=== PATIENT | female | born 1965 | race Caucasian/White ===

== ENCOUNTER 2021-01-24 12:52 | Outpatient (REF) | payer MEDICAID, SELFPAY ==
--- NOTE | ~2021-01-24 | XR_ITS ---
EXAMINATION: XR CHEST CLINICAL INFORMATION: Severe persistent asthma, uncomplicated COMPARISON: Chest radiographs 10/18/2019, 06/03/2015 TECHNIQUE: 2 views of the chest were obtained. FINDINGS: There is no hyperinflation, airspace consolidation, or ground-glass opacity. There is mild coarsening of the bronchiolar markings consistent with history of asthma/bronchitis. The costophrenic sulci are clear. The heart is normal in size and the hilar and mediastinal contours and bony structures are unremarkable. XR/XR chest 2V IMPRESSION: Mild coarsening bronchiolar markings consistent with history asthma/bronchitis. No airspace consolidation, ground-glass opacity, or effusion.
[2021-01-24 14:05] LABS: MANUAL DIFF FLAG NO
[2021-01-24 14:09] LABS: Basophils Percent Auto 0.6 % (0-2); Eosinophils Absolute Auto 0.2 X10*3/uL (0.0-0.4); Eosinophils Percent Auto 2.9 % (0-4); Hematocrit 40.4 % (37-47); Hemoglobin 13.5 g/dl (12.0-16.0); Imm Gran Abs Auto 0.02 X10*3/uL (0.00-0.03); Imm Gran Pct Auto 0.3 % (0.0-0.4); Lymphocytes Absolute Auto 2.4 X10*3/uL (1.2-4.9); Lymphocytes Percent Auto 33.2 % (20-40); Mean Corpuscular HGB Conc 33.4 g/dl (31.0-35.0); Mean Corpuscular Hemoglobin 28.7 pg (27.0-33.0); Mean Corpuscular Volume 85.8 fL (80-98); Mean Platelet Volume 11.1 fL (9.4-12.3); Monocytes Absolute Auto 0.5 X10*3/uL (0.1-1.2); Monocytes Percent Auto 7.2 % (2-11); Neutrophils Percent Auto 55.8 % (45-73); Platelet Count 274 X10*3/uL (160-400); Red Blood Count 4.71 X10*6/uL (4.20-5.50); Red Cell Distribution Width 12.5 % (11.0-16.0); White Blood Count 7.2 X10*3/uL (4.8-10.8)
== END 2021-01-24 12:53 | disposition home or self-care (01) ==
LOC: HO.LAB 12:52
PROVIDERS: PCP Family Medicine; Visit Provider Internal Medicine Pulmonary Disease
DX: J45.50 Severe persistent asthma, uncomplicated (principal); Z91.09 Other allergy status, other than to drugs and biological substances; Z79.899 Other long term (current) drug therapy
CPT/HCPCS: 36415; 71046; 82785; 85025; 86003; 99202

== ENCOUNTER 2021-04-05 09:05 | Outpatient (REF) | payer MEDICAID, SELFPAY ==
--- NOTE | ~2021-04-05 | CT_ITS ---
EXAMINATION: CT FACIAL BONES WITH CONTRAST CLINICAL INFORMATION: Localized swelling of mass or lump. COMPARISON: None TECHNIQUE: 3 mm thin and reformatted 1.5 mm thin sagittal and coronal images of facial bones were obtained following IV [address] examination was performed using dose optimization techniques as appropriate, variously including the following: *Automated exposure control *Adjustment of mA and/or kV according to patient size (this includes techniques or standardized protocols for targeted exams where dose is matched to indication/reason for exam; i.e. extremities or head) *Use of iterative reconstruction technique DLP: 497 mGy-cm FINDINGS: There is no acute maxillofacial fracture. The pterygoid plates are intact. The zygomatic arches are intact. The lamina papyracea are intact. The orbital rims are intact. The paranasal sinuses are well-aerated. No air-fluid levels are seen. There is mild deviation of the nasal septum to the left. The ostiomeatal complexes are clear. The lamina papyracea are intact. The ethmoid roofs are symmetric. The carotid canals are normally covered by bone. No maxillary periapical disease is seen. The mastoid air cells and visualized middle ear cavities are well-aerated. The orbits are normal. The TMJs are unremarkable. The imaged portions of the brain demonstrate no acute abnormality. CT/CT facial bones w con IMPRESSION: No acute intracranial process or discrete facial bone fracture.
[2021-04-05] MEDS: iohexoL 350 MG/ML 100 ML INFUS..BTL IV (09:56)
== END 2021-04-05 09:06 | disposition home or self-care (01) ==
LOC: HO.CT 09:05
PROVIDERS: PCP Family Medicine; Visit Provider Family Medicine
DX: R22.0 Localized swelling, mass and lump, head (principal)
CPT/HCPCS: 70487; Q9967

== ENCOUNTER 2021-04-18 18:11 | Emergency (ER) | payer MEDICAID, SELFPAY ==
[2021-04-18 18:51] VITALS: BP 140/76; PULSE 83; RESP 18; TEMP 36.5; O2SAT 99; BMI 39.9
--- NOTE | 2021-04-18 20:37 | ED_ITS ---
HPI - General Adult General Chief complaint: Extremity Problem Stated complaint: shoulder pain Time Seen by Provider: 04/18/21 20:28 Source: patient Mode of arrival: ambulatory Limitations: no limitations History of Present Illness HPI narrative: 55-year-old female who presents emergency department for evaluation of left-sided neck pain with pain radiating down her left arm. Patient states she has had left sided neck pain for approximately 3 weeks. She denies any injury. She points to her trapezius muscle when asked to localize the pain. She states that the pain is a constant, stabbing like pain. She has seen her provider and has been treated the cyclobenzaprine with only minimal relief for pain. She states that over the last 3-4 days the pain is not radiating down her left arm. She states she has a burning sensation in her left arm with occasional weakness. She states that the pain in her neck and arm are 10/10. She denied fever, chills, nausea, vomiting, chest pain, shortness of breath. Related Data Previous Rx's Medication Instructions Recorded cyclobenzaprine 10 mg PO TID PRN #20 tab 04/18/21 morphine 15 mg PO Q4-6H PRN #10 tab 04/18/21 prednisone 60 mg PO DAILY 7 Days #21 tab 04/18/21 Allergies Allergy/AdvReac Type Severity Reaction Status Date / Time nitrofurantoin AdvReac Unknown nausea and Verified 04/18/21 19:49 vomiting From COMPAZINE Allergy Unknown ANAPHYLAXIS Uncoded 12/25/20 12:33 Review of Systems Review of Systems: Yes all other systems are reviewed and are negative [facility] Past Medical History [facility] Narrative: Past medical history: Prediabetes, asthma, depression. Past surgical history: . Social history: She denies tobacco, alcohol and drug use. Social History Social History Advance Directives: No Advance Directives Information Provided: No Patient : No Physical Exam Vital Signs: Vital Signs: Last Vital Signs Temp 97.7 F 04/18/21 18:51 Pulse 83 04/18/21 18:51 Resp 18 04/18/21 18:51 BP 140/76 H 04/18/21 18:51 Pulse Ox 99 04/18/21 18:51 Body Mass Index 39.9 Const: General: cooperative Nutritional Appearance: overweight Orientation/consciousness: oriented to person and oriented to place Limitations: no limitations HENMT: Head: Yes normal to inspection, Yes normocephalic and Yes atraumatic Ears: external ears normal General nose exam: Normal external nose present Face and sinus: Yes normal facial exam Mouth: Normal oral and palatal mucosa present Throat: Yes posterior oropharynx normal Eyes: Periorbital: periorbital findings normal Eyelids: Yes eyelids normal Conjunctivae: conjunctivae normal Sclerae: sclerae normal Corneas: corneas normal Pupils: Equal, round and reactive pupils present Direct Ophthalmoscopy: normal light reflex Neck: Other: Moderate tenderness to the left trapezius muscle, left trapezius muscle spasm, no C-spine tenderness Chest: Chest palpation & inspection: normal inspection of the chest and normal palpation of entire chest wall Resp: Effort & Inspection: normal respiratory effort and able to speak in complete sentences Auscultation: clear to auscultation bilaterally Cardio: Rate: regular rate Rhythm: regular rhythm Heart sounds: S1 normal heart sound present, S2 normal heart sound present and no murmurs GI: Inspection: Yes normal to inspection Palpation (GI): Soft to palpation, nontender, no guarding, not rigid and No hepatosplenomegaly present : General: Yes no CVA tenderness Back/Spine/Pelvis: Back: no CVA tenderness Cervical Spine: normal cervical lordosis Thoracic/Lumbar Spine: thoracic and lumbar spine normal to inspection Neuro: General: oriented to person and oriented to place Cranial nerves: Yes CN's II-XII intact bilaterally and Yes Equal, round and reactive pupils present Cognition (Neuro): normal cognition Motor exam (neuro): 5/5 motor strength present throughout Extrem: General: Yes normal to inspection and Yes full ROM Psych: Appearance: well kempt Mental Status: mental status grossly normal Speech and movement: Normal speech and movement present Affect: normal affect Attitude: cooperative Thought process: Normal thought process present Thought content: Normal thought content present Course Course Course Narrative: 55-year-old female who presents emergency department for evaluation of 3 weeks of left-sided trapezius muscle and 3-4 days of pain radiating down her left arm. Physical examination did reveal tenderness palpation of left trapezius muscle with normal upper extremity strength. The patient's presentation is consistent with cervical radiculopathy, I suspect that is probably secondary to inflammation caused by her trapezius muscle strain. Cervical this disease is also possible cause. I did discuss this with the patient. She was advised to stop taking NSAIDs. Patient was started on prednisone 60 mg once a day for 1 week. She was advised to continue taking Tylenol and I did give her prescription for cyclobenzaprine. For pain not relieved by these medications, she was given morphine 15 mg, 1 pill every 4-6 hours as needed for pain. The patient was given verbal and printed instructions prior to discharge. The patient was advised to follow-up with their PCP in 2 days and to return to the emergency department if their symptoms get worse or if they develop any new symptoms that are concerning to them Discharge Plan Discharge Clinical Impression: Acute neck pain, Cervical radiculopathy, Strain of left trapezius muscle Patient Disposition: Home, Self-Care Instructions: Cervical Radiculopathy (ED) Additional Instructions: You have significant tenderness and spasm of the left neck trapezius muscle. You probably have significant inflammation of this muscle and this may be causing inflammation of the nerves coming out of your neck causing her pain in the left arm. It is also possible that she might have a bulging disc that is causing the pain in her left arm. Stop taking NSAIDs (Motrin, ibuprofen, Advil, Aleve, naproxen). Instead I am starting you on a strong steroid anti-inflammatory medication call prednisone. Take prednisone 20 mg pills, 1 pill 3 times a day for 1 week. Take Flexeril (cyclobenzaprine) 10 mg, 1 pill 3 times a day as needed for pain and spasm. This medication will make you sleepy. Do not drive or work while taking this medication. Take Tylenol (acetaminophen) 500 mg pills, 2 pills every 4 to 6 hours as needed for pain. For pain not relieved by the above medications, take morphine 15 mg pills, 1 pill every 4-6 hours as needed for pain. This is a narcotic medication and can be addicting. If your concerned about addiction do not get this medication filled or you can ask the pharmacist for less pills than prescribed. This medication will make you sleepy, do not drive or work while taking this medication. This medication will cause constipation. Follow-up with your doctor in 2 days. Please return to the emergency department if your symptoms get worse or if you develop any symptoms that are concerning to you. Prescriptions: New cyclobenzaprine 10 mg tablet 10 mg PO TID PRN (Reason: muscle pain or spasm) Qty: 20 RF: 0 prednisone 20 mg tablet 60 mg PO DAILY 7 Days Qty: 21 RF: 0 morphine 15 mg tablet 15 mg PO Q4-6H PRN (Reason: pain) Qty: 10 RF: 0
[2021-04-18] MEDS: predniSONE 20 MG TABLET 60 MG PO (21:27)
== END 2021-04-18 21:38 | disposition home or self-care (01) ==
PROVIDERS: Emergency Provider Emergency Medicine Emergency Medical Services; PCP Family Medicine
DX: S46.812A Strain of other muscles, fascia and tendons at shoulder and upper arm level, left arm, initial encounter (principal); M54.12 Radiculopathy, cervical region; X58.XXXA Exposure to other specified factors, initial encounter; Y93.9 Activity, unspecified; Y92.9 Unspecified place or not applicable; Y99.9 Unspecified external cause status
CPT/HCPCS: 99283; 99284

== ENCOUNTER 2021-08-14 08:36 | Outpatient (REF) | payer MEDICAID, SELFPAY ==
--- NOTE | 2021-08-14 09:59 | PFT_ITS ---
Forced vital capacity and FEV1 are both slightly decreased, FEV1/FVC ratio is normal. [id number] and MVV also slightly decreased. Post bronchodilator therapy, there is slight improvement in [id number]. Total lung capacity and residual volume normal. Diffusion capacity slightly decreased. CONCLUSION: Possible mild obstructive airway disorder mainly involving smaller airways and there is a small, but significant improvement after bronchodilator therapy. These findings may be reflective of mild bronchial asthma. Clinical correlation recommended. MD ANNE Christiansen/MODL / [id number]
== END 2021-08-14 08:37 | disposition home or self-care (01) ==
LOC: HO.RESP 08:36
PROVIDERS: PCP Family Medicine; Visit Provider Internal Medicine Pulmonary Disease
DX: J45.50 Severe persistent asthma, uncomplicated (principal)
CPT/HCPCS: 94060; 94727; 94729

== ENCOUNTER → 2021-08-15 14:17 | Outpatient (BNVA) | payer MEDICAID, SELFPAY | PROVIDERS: PCP Family Medicine; Visit Provider Internal Medicine Pulmonary Disease | DX: J45.50 Severe persistent asthma, uncomplicated (principal); R06.00 Dyspnea, unspecified; Z91.09 Other allergy status, other than to drugs and biological substances | CPT/HCPCS: 99212 ==

== ENCOUNTER 2021-09-12 09:06 | Outpatient (REF) | payer MEDICAID, SELFPAY ==
--- NOTE | ~2021-09-12 | US_ITS ---
EXAMINATION: US ABDOMEN COMPLETE CLINICAL INFORMATION: Right upper quadrant pain, gallstone. COMPARISON: CT abdomen and pelvis noncontrast 10/18/2019, ultrasound abdomen 06/10/2019 TECHNIQUE: Real-time imaging of the abdominal viscera. FINDINGS: PANCREAS: The pancreas is normal in size and echogenicity. There is no pancreatic ductal distention and no retroperitoneal effusion. ABDOMINAL AORTA: The proximal, mid, and distal segments are normal in caliber. INFERIOR VENA CAVA: Visualized portions are normal. LIVER: The liver is within normal size and appears smooth in contour. There is no focal parenchymal lesion. No intrahepatic biliary ductal dilatation. Hepatic parenchymal echogenicity is borderline increased which may suggest mild hepatic steatosis. GALLBLADDER: Gallbladder is similar to prior studies. There is strong specular echo with shadowing from the gallbladder fossa. It is uncertain on prior exams whether the finding is related to porcelain gallbladder with wall calcification or a large gallstone. COMMON BILE DUCT: Within limits of normal caliber 0.6 cm. No visible ductal calculus. RIGHT KIDNEY: Normal. No hydronephrosis. No renal calculi or focal parenchymal lesions. The kidney measures 12.7 cm in maximum dimension. LEFT KIDNEY: Congenitally absent. SPLEEN: Normal. The spleen measures 11.3 cm in maximum dimension. FREE FLUID: None. US/US abdomen complete IMPRESSION: 1. Specular echo from gallbladder fossa with strong shadowing. It is uncertain on prior exams with the finding is related to porcelain gallbladder with wall calcification or a large gallstone. No intrahepatic or extrahepatic ductal dilatation. 2. Probable mild hepatic steatosis. No focal hepatic parenchymal lesion. 3. Pancreas unremarkable. No right hydronephrosis.
== END 2021-09-12 09:07 | disposition home or self-care (01) ==
LOC: HO.US 09:06
PROVIDERS: PCP Family Medicine; Visit Provider Family Medicine
DX: R10.11 Right upper quadrant pain (principal); K80.20 Calculus of gallbladder without cholecystitis without obstruction; R77.2 Abnormality of alphafetoprotein
CPT/HCPCS: 76700

== ENCOUNTER 2021-09-16 11:18 | Outpatient (REF) | payer MEDICAID, SELFPAY ==
--- NOTE | ~2021-09-16 | MM_ITS ---
EXAMINATION: MM SCREENING DIGITAL BREAST TOMOSYNTHESIS, BILATERAL CLINICAL INFORMATION: Screening. Asymptomatic. The lifetime risk of breast cancer based on the Tyrer-Cuzick Model is 6%. COMPARISON: Mammography: 07/01/2017, 05/19/2016 TECHNIQUE: Digital breast tomosynthesis is performed in both the craniocaudal and mediolateral oblique views along with computer-aided detection (CAD). Synthesized 2D images are generated from the tomosynthesis. FINDINGS: There are scattered areas of fibroglandular density (ACR BI-RADS breast composition Category b). There are no significant masses, abnormal calcifications, or other abnormalities. MM/MM tomosynthesis screening BI IMPRESSION: No mammographic evidence of malignancy. ASSESSMENT: BI-RADS 1: Negative RECOMMENDATION: Routine annual mammography screening. This patient's information was entered into a reminder system with a target due date for their next mammogram.
== END 2021-09-16 11:19 | disposition home or self-care (01) ==
LOC: HO.MAMMO 11:18
PROVIDERS: Visit Provider Family Medicine
DX: Z12.31 Encounter for screening mammogram for malignant neoplasm of breast (principal)
CPT/HCPCS: 77063; 77067

== ENCOUNTER → 2021-09-25 14:16 | Outpatient (REF) | payer MEDICAID, SELFPAY ==
--- NOTE | 2021-09-25 14:26 | CA_ITS ---
Transthoracic Echocardiogram Patient (Last, First, Middle): Jacqui Russo, Gender: Female Date of : 1965 Age: 55 Procedure Date: 09/25/2021 Procedure Type: Transthoracic [place] [facility] [place]: 160.02 cm Weight: 104.33 kg BSA: 2.05 m2 Heart Rate: bpm BP: 134 / 80 mmHg [employer] Technician: Referring MD: Kolton Catherine MD Mental Health Technician: Lm Morales MD Symptoms: R06.00 - Dyspnea, unspecified Study Quality: Good ECG Rhythm: Sinus Conclusions: - 1. Normal LV systolic function with grade 1 diastolic dysfunction 2. Normal cardiac valvular Doppler 3. Normal RV systolic pressure 4. No pericardial effusion Findings Left Ventricle Normal left ventricular size, thickness, and systolic function. The visually estimated ejection fraction is between 60-65%. Spectral Doppler is indicative of an impaired relaxation filling pattern. Normal left ventricular filling pressures. E/E prime ratio is <8, consistent with normal filling pressures. Evidence suggests grade I (mild) diastolic dysfunction. Right Ventricle Normal right ventricular cavity size and systolic function. Atria Both atria are normal in size. There is no evidence of interatrial shunt. Aortic Valve Normal aortic valve structure and function. There is no aortic valve stenosis. There is no aortic valve regurgitation. Mitral Valve Normal mitral valve structure and function. There is trace mitral valve regurgitation. There is no mitral valve stenosis. Pulmonic Valve The pulmonic valve was not well visualized. Tricuspid Valve Likely normal tricuspid valve structure and function. There is trace tricuspid valve regurgitation. The right ventricular systolic pressure is 20 mmHg. There is no evidence of pulmonary hypertension. Great Vessels All visible segments of the aorta are normal in size. The pulmonary artery was not well visualized. Venous The inferior vena cava is normal in size and collapses greater than 50% with inspiration. Pericardium/Pleural There is no evidence of pericardial effusion. Prior Study Comparison No prior study available for comparison. Measurements 2D Linear Measurements RVIDd: 3.07 RVIDd Index: 1.50 IVSd: 0.81 0.6-0.9/0.6-1.0 cm LVIDd: 4.71 3.9-5.3/4.2-5.9 cm LVIDd Index: 2.30 2.4-3.2/2.2-3.1 cm/m2 LVIDs: 2.65 2.0-3.6 cm LVPWd: 0.90 0.7-1.1 cm Ao Root: 3.10 2.1-3.5 cm LA Diam: 3.40 2.7-3.8/3.0-4.0 cm LAIDs Index: 1.66 1.5-2.3 cm/m2 LV Mass: 166.66 67-162/88-224 g LV Mass Index: 81.30 43-95/49-115 g/m2 LVOT Diam: 2.00 3.0+(-)1.3 cm 2D Systolic Function EF 4C: 62.20 >55% EF 2C: 68.70 >55% EF BiP: 64.40 >55% Mitral Valve MV Pk E: 0.63 MV PK A: 0.96 MV Decel Time: 212.00 E/A: 0.70 E'Lateral: 8.16 E'Medial: 8.05 E/E' Med: 7.80 E/E' Lat: 7.70 PHT: 62.00 MVA PHT: 3.55 Decel Manati: 2.95 Aortic Valve AoV Pk Walter: 1.49 AoV Mn Walter: 1.01 AoV VTI: 0.30 AoV Pk Grad: 9.00 Aov Mn Grad: 5.00 RADHA Cont.VTI: 2.51 LVOT LVOT Pk Walter: 1.19 LVOT Mn Walter: 0.78 LVOT VTI: 0.24 LVOT Pk Grad: 6.00 LVOT Mn Grad: 3.00 LVOT Diam: 2.00 LVOT Area: 3.14 Diastolic Function MV Pk E: 0.63 MV Pk A: 0.96 E/A: 0.70 E'Medial: 8.05 E/E' Med: 7.80 E' Laterial: 8.16 E/E' Lat: 7.70 Right Ventricle TAPSE (mm): 17.00 TVS' Walter: 10.00 Tricuspid Valve TR Pk Walter: 2.08 TR Pk Grad: 17.00 RA Press: 3.00 RVSP: 20.00 Great Vessels Aorta Ao Root-2D: 3.10 2.0-3.7 cm Ao Asc: 3.50 2.1-3.4 cm Pulmonary Valve PV Pk Walter: 1.05 Peak PV Grad: 4.00 Updated in Other Vendor System with Status of Final Lm Morales MD electronically signed on 09/25/2021 4:06:02 PM with status of Final
== END ==
LOC: HO.CARD 14:16
PROVIDERS: Visit Provider Internal Medicine Pulmonary Disease
DX: R06.00 Dyspnea, unspecified (principal)
CPT/HCPCS: 93306

== ENCOUNTER → 2021-10-01 13:32 | Outpatient (BNVA) | payer MEDICAID, SELFPAY | PROVIDERS: PCP Family Medicine; Visit Provider Internal Medicine Pulmonary Disease | DX: J45.50 Severe persistent asthma, uncomplicated (principal); R06.00 Dyspnea, unspecified | CPT/HCPCS: 99212 ==

== ENCOUNTER 2021-12-09 11:15 | Outpatient (REF) | payer MEDICAID, SELFPAY ==
[2021-12-09 13:25] LABS: Blood Urea Nitrogen 18 mg/dL (9-16); Estimated Glomerular Filt Rate > 60
== END 2021-12-09 11:16 | disposition home or self-care (01) ==
LOC: HO.LAB 11:15
PROVIDERS: PCP Family Medicine; Referring Provider Family Medicine; Visit Provider Surgery
DX: R10.9 Unspecified abdominal pain (principal)
CPT/HCPCS: 36415; 82565; 84520; 99212

== ENCOUNTER 2021-12-12 12:52 | Outpatient (REF) | payer MEDICAID, SELFPAY ==
--- NOTE | ~2021-12-12 | XR_ITS ---
EXAMINATION: XR KNEE, LEFT CLINICAL INFORMATION: Pain COMPARISON: None TECHNIQUE: Four views of the left knee. FINDINGS: No fracture or subluxation. Mild narrowing at the patellofemoral compartment. Remaining joint spaces are maintained. No joint effusion. The soft tissues are unremarkable. XR/XR knee LT 3V IMPRESSION: Mild degenerative change of the patellofemoral compartment.
--- NOTE | ~2021-12-12 | XR_ITS ---
EXAMINATION: XR FOOT, LEFT CLINICAL INFORMATION: Pain in left foot COMPARISON: None TECHNIQUE: AP, lateral, and oblique views of the left foot. FINDINGS: No fracture or dislocation. Alignment is anatomic. Joint spaces are maintained. Mild hypertrophic spurring at the plantar aponeurosis and Achilles insertion to the calcaneus. No joint effusion. Soft tissues appear unremarkable. Accessory navicular. XR/XR foot LT min 3V IMPRESSION: Small heel spurs.
== END 2021-12-12 12:53 | disposition home or self-care (01) ==
LOC: HO.XRAY 12:52
PROVIDERS: Absent Provider Family Medicine; PCP Family Medicine; Visit Provider Emergency Medicine
DX: M25.562 Pain in left knee (principal); M79.672 Pain in left foot
CPT/HCPCS: 73562; 73630

== ENCOUNTER 2022-01-15 11:42 | Outpatient (REF) | payer MEDICAID, SELFPAY ==
--- NOTE | ~2022-01-15 | CT_ITS ---
EXAMINATION: CT ABDOMEN AND PELVIS WITH CONTRAST CLINICAL INFORMATION: Abdominal pain COMPARISON: CT abdomen pelvis 10/18/2019 TECHNIQUE: Multidetector volumetric images were obtained from the superior aspect of the liver through the pubic symphysis following administration 85 mL of Omnipaque 350 intravenous contrast. Sagittal and coronal reformatted images were obtained on the technologist's workstation. Oral contrast: No This CT examination was performed using dose optimization techniques as appropriate, variously including the following: *Automated exposure control *Adjustment of mA and/or kV according to patient size (this includes techniques or standardized protocols for targeted exams where dose is matched to indication/reason for exam; i.e. extremities or head) *Use of iterative reconstruction technique DLP: 625 mGy-cm FINDINGS: LUNG BASES: Unremarkable. ABDOMINAL AND PELVIC WALL: Unremarkable. LIVER AND BILIARY TREE: Hypoattenuating hepatic parenchyma suggesting hepatic steatosis. 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 PANCREAS: Unremarkable. SPLEEN: Unremarkable. ADRENAL GLANDS: Unremarkable. KIDNEYS AND URETERS: Right kidney is remarkable for a 2 mm nonobstructing right upper pole renal stone. Left kidney is severely atrophic measuring 1.6 cm. The right kidney measures 12.4 cm. GASTROINTESTINAL TRACT: Small hiatal hernia. VASCULAR: Unremarkable. LYMPH NODES/PERITONEUM: No lymphadenopathy. FREE FLUID: None. BLADDER: Unremarkable. PELVIC VISCERA: Unremarkable. OSSEOUS STRUCTURES: Unremarkable. CT/CT abdomen pelvis w con IMPRESSION: No acute findings to plain symptoms of abdominal pain. A 2 mm nonobstructing right upper pole renal stone. Left kidney is severely atrophic measuring 1.6 cm. 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 Consider surgical consultation. Hypoattenuating hepatic parenchyma suggesting hepatic steatosis.
[2022-01-15 12:13] LABS: Blood Urea Nitrogen 13 mg/dL (9-16); Estimated Glomerular Filt Rate > 60
[2022-01-15] MEDS: Barium Sulfate Oral (Mocha) 450 ML ORAL.SUSP 900 ML PO (14:43)
[2022-01-15] MEDS: iohexoL 350 MG/ML 100 ML INFUS..BTL IV (14:44)
== END 2022-01-15 11:43 | disposition home or self-care (01) ==
LOC: HO.CT 11:42
PROVIDERS: PCP Family Medicine; Visit Provider Surgery
DX: R10.9 Unspecified abdominal pain (principal)
CPT/HCPCS: 36415; 74177; 82565; 84520; Q9967

== ENCOUNTER → 2022-01-29 13:21 | Outpatient (BNVA) | payer MEDICAID, SELFPAY | PROVIDERS: PCP Family Medicine; Visit Provider Internal Medicine Pulmonary Disease | DX: J45.909 Unspecified asthma, uncomplicated (principal); G47.33 Obstructive sleep apnea (adult) (pediatric); R06.00 Dyspnea, unspecified | CPT/HCPCS: 99212 ==

== ENCOUNTER → 2022-02-03 12:27 | Outpatient (BNVA) | payer MEDICAID, SELFPAY | PROVIDERS: PCP Family Medicine; Referring Provider Family Medicine; Visit Provider Surgery | DX: K82.8 Other specified diseases of gallbladder (principal) | CPT/HCPCS: 99212 ==

== ENCOUNTER → 2022-03-06 13:51 | Outpatient (REF) | payer MEDICAID, SELFPAY | LOC: HO.SL 13:51 | PROVIDERS: PCP Family Medicine; Visit Provider Internal Medicine Pulmonary Disease | DX: G47.33 Obstructive sleep apnea (adult) (pediatric) (principal) | CPT/HCPCS: 95806 ==

== ENCOUNTER → 2022-05-02 12:37 | Outpatient (BNVA) | payer MEDICAID, SELFPAY | PROVIDERS: PCP Family Medicine; Visit Provider Internal Medicine Pulmonary Disease | DX: J45.909 Unspecified asthma, uncomplicated (principal); G47.33 Obstructive sleep apnea (adult) (pediatric); J32.9 Chronic sinusitis, unspecified | CPT/HCPCS: 99212 ==

== ENCOUNTER 2022-08-08 14:02 | Outpatient (REF) | payer MEDICAID, SELFPAY ==
--- NOTE | ~2022-08-08 | US_ITS ---
EXAMINATION: US SOFT TISSUE NECK CLINICAL INFORMATION: Mass/lump left side of neck. COMPARISON: None TECHNIQUE: Ultrasound of the left neck inferior to ear. FINDINGS: There is a 2.1 x 1.3 x 1.3 cm lymph node inferior to the ear corresponding to palpable abnormality. This demonstrates mild cortical thickening, and normal hilar flow. US/US soft tiss head and/or neck IMPRESSION: Slightly enlarged left cervical lymph node inferior to the ear. Management should be determined on a clinical basis.
== END 2022-08-08 14:03 | disposition home or self-care (01) ==
LOC: HO.US 14:02
PROVIDERS: PCP Family Medicine; Visit Provider Internal Medicine
DX: R22.1 Localized swelling, mass and lump, neck (principal)
CPT/HCPCS: 76536

== ENCOUNTER 2023-03-19 16:18 | Outpatient (REF) | payer MEDICAID, SELFPAY ==
--- NOTE | ~2023-03-19 | XR_ITS ---
EXAMINATION: XR FOOT, LEFT CLINICAL INFORMATION: Pain. COMPARISON: Regressed dated 12/12/2021. TECHNIQUE: AP, lateral, and oblique views of the left foot. FINDINGS: Bony alignment and mineralization are normal. No fracture, dislocation or left ankle joint effusion is seen. Boehler's angle is normal. There are very small posterior and plantar calcaneal spurs. An accessory navicular bone is noted. There is no unusual degenerative change. No focal soft tissue swelling, gas or foreign body is seen. XR/XR foot LT min 3V IMPRESSION: 1. No fracture, dislocation or left ankle joint effusion is seen. 2. There are very small calcaneal spurs.
--- NOTE | ~2023-03-19 | US_ITS ---
EXAMINATION: US VENOUS ULTRASOUND WITH DOPPLER LOWER EXTREMITY, LEFT CLINICAL INFORMATION: Pain and swelling. COMPARISON: None available. TECHNIQUE: Ultrasound of the deep veins is performed from the hip to the calf with compression sonography and color and pulse Doppler assessment. Spectral analysis with color-flow imaging is performed. FINDINGS: There is normal venous compression and respiratory variation and augmented flow. The visualized common femoral vein, superficial femoral vein, profunda femoral vein, popliteal vein, and the trifurcation region shows no evidence of deep venous thrombosis. There is no significant popliteal fossa cyst. If the patient's symptoms persist, followup ultrasound in 5 days 7 days might be of value to exclude proximal propagation from a non-visualized calf vein. US/US venous duplex LE IMPRESSION: No DVT demonstrated in the left lower extremity.
--- NOTE | ~2023-03-19 | XR_ITS ---
EXAMINATION: XR KNEE, LEFT CLINICAL INFORMATION: Pain and swelling. COMPARISON: None available. TECHNIQUE: AP, lateral, tunnel, and sunrise views of the left knee. FINDINGS: Bones and soft tissues are normal. No fracture or joint effusion. Alignment is anatomic. Joint spaces are well maintained. No abnormal soft tissue calcification. XR/XR knee LT 4V IMPRESSION: Normal left knee.
== END 2023-03-19 16:19 | disposition home or self-care (01) ==
LOC: HO.US 16:18
PROVIDERS: Absent Provider Family Medicine; PCP Family Medicine; Visit Provider Emergency Medicine
DX: M79.662 Pain in left lower leg (principal); M79.672 Pain in left foot; M79.89 Other specified soft tissue disorders
CPT/HCPCS: 73564; 73630; 93971

== ENCOUNTER 2023-11-26 13:39 | Outpatient (AMB) | payer MEDICAID, SELFPAY ==
[2023-11-26 13:49] VITALS: BP 120/70; PULSE 86; O2SAT 98
--- NOTE | 2023-11-26 13:49 | MHC.OFFVIS ---
Intake Vital Signs 11/26/23 13:49 Weight 243 lb 9.773 oz BP 120/70 Blood Pressure Location Rt brachial Position Sitting Pulse 86 Pulse Source Pulse Oximeter Pulse Oximetry (%) 98 Oxygen Delivery Method Room Air Intake Visit Reasons: dyspnea Allergies nitrofurantoin Adverse Reaction (Unknown, Verified 11/26/23 13:53) nausea and vomiting From COMPAZINE Allergy (Unknown, Uncoded 11/26/23 13:53) ANAPHYLAXIS Medication List - Last Reconciled 11/26/23 by Shirley Campbell LPN albuterol sulfate 90 mcg/actuation (ProAir HFA) 2 puffs PO Q4-6H PRN cetirizine 10 mg PO DAILY fluticasone propionate 50 mcg/actuation 1 spray intranasal DAILY furosemide 60 mg (1.5 x 40 mg) PO DAILY montelukast 10 mg PO DAILY HPI dyspnea HPI Details 58-year-old lady, nonsmoker, followed for underlying asthma and environmental allergies.? Patient is using Advair 500, Singulair, albuterol MDI/nebs now with good baseline control of her symptoms.?She also has underlying diastolic dysfunction for which she continues on Lasix 60 mg daily.? She has had her sleep study that showed no evidence of underlying sleep apnea. Today she does complain of an acute exacerbation symptomatic with wheezing and some dyspnea on exertion. [facility] Medical History Asthma Left flank pain Morbid obesity Porcelain gallbladder Surgical History H/O section History of tubal ligation Family History Mother Ovarian cancer Maternal Grandfather Throat cancer Social History Alcohol intake: never Patient Tobacco Use Status: Never used Tobacco Review of Systems Const Denies daytime sleepiness, Denies excessive sweating, Denies fatigue, Denies fever(s), Denies lethargy, Denies malaise, Denies night sweats, Denies snoring and Denies weight loss Eyes Denies blurry vision and Denies itchy eyes ENT Denies nasal congestion, Denies post nasal drip, Denies sinus pain, Denies sinus pressure and Denies other ( Thrush) Card Denies chest pain, Denies pedal edema, Denies dyspnea, Reports dyspnea on exertion, Denies orthopnea and Denies paroxysmal nocturnal dyspnea Resp Denies cough, Denies hemoptysis, Denies excessive phlegm production, Denies dyspnea, Reports dyspnea on exertion, Denies snoring and Reports wheezing GI Denies abdominal pain and Denies heartburn Musc Denies myalgias, Denies arthralgias and Denies joint swelling Skin/Breast Denies rash Neuro Denies memory loss and Denies seizure-like activity Psych Denies abnormal sleep pattern, Denies anxiety and Denies memory loss Endo Denies excessive sweating, Denies fatigue and Denies heat intolerance Kian/Lymph Denies easy bruising Aller/Immun Denies itchy eyes, Denies seasonal rhinorrhea and Reports wheezing Physical Exam Vital Signs: Last Vital Signs Pulse 86 11/26/23 13:49 BP 120/70 11/26/23 13:49 Pulse Ox 98 11/26/23 13:49 Oxygen Delivery Method Room Air 11/26/23 13:49 Const General: no acute distress and alert Nutritional Appearance: obese Orientation/consciousness: Other orientation findings ( oriented) HEENT Head: Yes atraumatic Eyes General: appearance normal, both eyes and all related structures Sclerae: sclerae normal EOM: EOMs intact bilaterally Neck Neck: Yes supple Lymphatic: no lymphadenopathy noted Resp Effort & Inspection: normal respiratory effort and no use of accessory muscles Auscultation: wheezes expiratory wheezes Cardio Rate: regular rate Rhythm: regular rhythm Heart sounds: no gallops, no murmurs and no rubs Skin General skin exam: other ( warm) Extrem General: No clubbing, No cyanosis and No edema Assessment & Plan Assessment & Plan (1) Asthma: Code(s): J45.909 - Unspecified asthma, uncomplicated Plan: Baseline controlled on Advair and albuterol MDI. Now with an acute exacerbation. Will treat with a prednisone course. (2) Environmental allergies: Code(s): Z91.09 - Other allergy status, other than to drugs and biological substances Plan: Controlled on Singulair and Zyrtec. Continue current regimen. (3) NE (obstructive sleep apnea): Code(s): G47.33 - Obstructive sleep apnea (adult) (pediatric) Plan: Sleep study results reviewed. No underlying obstructive sleep apnea noted. Medications: New prednisone 40 mg (2 x 20 mg) PO DAILY 14 tabs 0RF Coding Level of Care Code Est Pt Level 4 (89312) Diagnoses Asthma J45.909 Environmental allergies Z91.09 NE (obstructive sleep apnea) G47.33
== END 2023-11-26 14:02 | disposition home or self-care (01) ==
PROVIDERS: PCP Family Medicine; Visit Provider Internal Medicine Pulmonary Disease
DX: J45.909 Unspecified asthma, uncomplicated (principal); Z91.09 Other allergy status, other than to drugs and biological substances; G47.33 Obstructive sleep apnea (adult) (pediatric)
CPT/HCPCS: 99214

== ENCOUNTER → 2023-11-26 13:39 | Outpatient (BNVA) | payer MEDICAID, SELFPAY | PROVIDERS: PCP Family Medicine; Visit Provider Internal Medicine Pulmonary Disease | DX: J45.909 Unspecified asthma, uncomplicated (principal); G47.33 Obstructive sleep apnea (adult) (pediatric); Z91.09 Other allergy status, other than to drugs and biological substances | CPT/HCPCS: 99212 ==

== ENCOUNTER 2023-12-04 11:58 | Outpatient (AMB) | payer MEDICAID, SELFPAY ==
--- NOTE | 2023-12-04 12:01 | MHC.OFFVIS ---
Intake Vital Signs 12/04/23 12:02 Height 5 ft 3 in Weight 240 lb 4.862 oz BMI 42.6 BP 146/76 H Blood Pressure Location Lt brachial Position Sitting Pulse 87 Intake Visit Reasons: Hx of hep C/ mildly elevated AFP Intake Note: Jacqui presents in the office as a new patient for Hx of Hep C and midly elevated AFP. CC: She states that she deals with constipation, pains in stomach and acid reflux. Narcotics Investigator Required: Yes Narcotics Investigator Name: [id number] Allergies nitrofurantoin Adverse Reaction (Unknown, Verified 12/04/23 12:02) nausea and vomiting From COMPAZINE Allergy (Unknown, Uncoded 12/04/23 12:02) ANAPHYLAXIS HPI HPI Comments History of Present Illness Details This is a 58 y.o F with PMH of asthma, NE, porcelain gallbladder, presents to the office for elevated AFP . Patient herself reports left lower quadrant pain associated with constipation. States that cramping gets worse as she is trying to have a bowel movement and resolves after she has passed a bowel movement. Occurs at least 2 to 3 times a month. In terms of the initial referral reason that is elevated LFT, this is from 2019, and since then she has had a contrasted CT scan last year, that did not show any lesion in her liver. It did however show porcelain gallbladder. She has been seen by General surgery and there was mentioned agreement to manage it conservatively. Patient herself does not report any nausea, vomiting, postprandial discomfort or right upper quadrant pain. No history of pancreatitis. [facility] Medical History Asthma Left flank pain Morbid obesity Porcelain gallbladder Surgical History H/O section History of tubal ligation Family History Mother Ovarian cancer Maternal Grandfather Throat cancer Social History Alcohol intake: never Patient Tobacco Use Status: Never used Tobacco Review of Systems Const All systems reviewed & are unremarkable except as noted in HPI and below Physical Exam Vital Signs: Last Vital Signs Pulse 87 12/04/23 12:02 BP 146/76 H 12/04/23 12:02 BMI result Body Mass Index 42.6 Gen appear: NAD HEENT: nonicteric, no cervical lymphadenopathy Chest: CTA CVS: Regular S1/S2 Abd: soft, tenderness in epigastrium and right upper quadrant, nondistended, bowel sounds + Ext: no peripheral edema Neuro: A/Ox3, noted to move all extremities spontaneously Psych: interacting appropriately Assessment & Plan Assessment & Plan (1) Constipation: Code(s): K59.00 - Constipation, unspecified (2) Porcelain gallbladder: Code(s): K82.8 - Other specified diseases of gallbladder (3) Elevated AFP: Code(s): R77.2 - Abnormality of alphafetoprotein (4) Colon cancer screening: Code(s): Z12.11 - Encounter for screening for malignant neoplasm of colon Plan 1. Chronic idiopathic constipation: Appears to be a combination of lack of adequate hydration and fiber. -recommend increase water intake -at fiber -add stimulant laxatives such as senna or bisacodyl as needed for constipation. -if this does not work, can also further add MiraLax to be taken 1 to 2 times a day or as needed. 2. Porcelain gallbladder: Discuss the very small risk of developing gallbladder cancer, as well as other symptoms such as biliary pain, cholangitis, pancreatitis. Patient has been seen by surgery in the past, decision was made for conservative management. -CT abdomen and pelvis with contrast ordered -check LFTs 3. Elevated AFP: Reviewed with the patient that this tumor marker alone can not be used to screen for cancer. No liver lesion was seen on the CT from 2021. In other CTs being ordered to surveil the gallbladder, which should also help with localizing liver lesions if any. 4. Colorectal cancer screening: Patient has never had colorectal cancer screening. We will set her up for an elective colonoscopy. Split prep instructions were reviewed with the patient and a handout was provided. Follow-up in 3 months Orders: Orders Complete Blood Count no Diff Today K59.00 - Constipation, unspecified Comprehensive Met. Panel Today K59.00 - Constipation, unspecified TSH reflex Free T4 Today K59.00 - Constipation, unspecified Transglutaminase IgA Today K59.00 - Constipation, unspecified Immunoglobulin A Today K59.00 - Constipation, unspecified CT abdomen pelvis w IV con Today K82.8 - Other specified diseases of gallbladder Medications: New peg 3350-electrolytes 236-22.74-6.74 -5.86 gram (Golytely) as per split prep instructions, until fecal effluent is clear 240 mL PO Q10M 4,000 mL 0RF colonoscopy Patient Instructions: - Add senna or bisacodyl tab once daily in the morning 30 minutes before breakfast - If no response with these in 2 days, add miralax 17g mixed in 8 oz of water for a few days - We are also ordering blood work and CT scan for the gallbladder. Coding Level of Care Code New Pt Level 5 (79248) Diagnoses Constipation K59.00 Porcelain gallbladder K82.8 Elevated AFP R77.2 Colon cancer screening Z12.11
[2023-12-04 12:02] VITALS: BP 146/76; PULSE 87; BMI 42.6
== END 2023-12-04 12:49 | disposition home or self-care (01) ==
PROVIDERS: PCP Family Medicine; Visit Provider Internal Medicine
DX: K59.00 Constipation, unspecified (principal); K82.8 Other specified diseases of gallbladder; R77.2 Abnormality of alphafetoprotein; Z12.11 Encounter for screening for malignant neoplasm of colon
CPT/HCPCS: 99204

== ENCOUNTER 2023-12-04 11:58 | Outpatient (REF) | payer MEDICAID, SELFPAY ==
[2023-12-04 13:51] LABS: Hematocrit 38.3 % (37.0-47.0); Hemoglobin 12.8 g/dl (12.0-16.0); Mean Corpuscular HGB Conc 33.4 g/dl (31.0-35.0); Mean Corpuscular Hemoglobin 28.4 pg (27.0-33.0); Mean Corpuscular Volume 84.9 fL (80.0-98.0); Mean Platelet Volume 11.2 fL (9.4-12.3); Platelet Count 262 X10*3/uL (160-400); Red Blood Count 4.51 X10*6/uL (4.20-5.50); Red Cell Distribution Width 12.9 % (11.0-16.0); White Blood Count 11.4 X10*3/uL (4.8-10.8)
[2023-12-04 14:58] LABS: Alanine Aminotransferase 17 U/L (0-31); Albumin Level 4.1 g/dL (3.5-5.0); Alkaline Phosphatase 110 U/L (39-117); Anion Gap 13 (12-20); Aspartate Amino Transferase 14 U/L (5-31); Bilirubin Total 0.3 mg/dL (0.0-1.0); Blood Urea Nitrogen 15 mg/dL (9-16); Calcium 9.5 mg/dL (8.4-10.2); Carbon Dioxide 23 mmol/L (22-29); Chloride 106 mmol/L (96-108); Estimated Glomerular Filt Rate > 60; Glucose Random 300 mg/dL (60-115); Potassium 4.1 mmol/L (3.3-5.1); Sodium 138 mmol/L (135-145); Total Protein 7.7 g/dL (6.5-8.0)
[2023-12-04 15:06] LABS: TSH reflex Free T4 0.84 uIU/mL (0.32-4.0)
[2023-12-07 11:35] LABS: Immunoglobulin A 153 mg/dL (47-310)
[2023-12-07 13:24] LABS: Transglutaminase IgA <1.0 U/mL
== END 2023-12-04 11:59 | disposition home or self-care (01) ==
LOC: HO.LAB 11:58
PROVIDERS: PCP Family Medicine; Visit Provider Internal Medicine
DX: Z01.818 Encounter for other preprocedural examination (principal); K59.00 Constipation, unspecified; K82.8 Other specified diseases of gallbladder; R77.2 Abnormality of alphafetoprotein
CPT/HCPCS: 36415; 80053; 82784; 84443; 85027; 86364; 99202

== ENCOUNTER 2023-12-07 09:07 | Outpatient (REF) | payer MEDICAID, SELFPAY ==
[2023-12-07 12:02] LABS: Estimated Average Glucose 163 mg/dL; Hemoglobin A1c % 7.3 % (<6.0)
[2023-12-07 12:12] LABS: Creatinine Urine 111.49 mg/dL
[2023-12-07 12:17] LABS: Cholesterol 195 mg/dL (<200); HDL Cholesterol 77 mg/dL (>40); LDL Cholesterol Calculated 100 mg/dL (<100); Triglycerides 90 mg/dL (<150)
[2023-12-07 13:53] LABS: Reflex LDLD? No
== END 2023-12-07 09:08 | disposition home or self-care (01) ==
LOC: HO.HHCL 09:07
PROVIDERS: Visit Provider Family Medicine
DX: E11.9 Type 2 diabetes mellitus without complications (principal)
CPT/HCPCS: 36415; 80061; 82043; 82570; 83036

== ENCOUNTER 2024-02-15 10:22 | Outpatient (REF) | payer MEDICAID, SELFPAY ==
[2024-02-15 12:05] LABS: Blood Urea Nitrogen 11 mg/dL (9-16); Estimated Glomerular Filt Rate > 60
== END 2024-02-15 10:23 | disposition home or self-care (01) ==
LOC: HO.LAB 10:22
PROVIDERS: PCP Family Medicine; Visit Provider Internal Medicine
DX: R10.9 Unspecified abdominal pain (principal)
CPT/HCPCS: 36415; 82565; 84520

== ENCOUNTER 2024-03-03 18:25 | Emergency (ER) | payer MEDICAID, SELFPAY ==
--- NOTE | ~2024-03-03 | US_ITS ---
EXAMINATION: US VENOUS ULTRASOUND WITH DOPPLER LOWER EXTREMITY, BILATERAL CLINICAL INFORMATION: Pain. Venous stasis. Rule out DVT. COMPARISON: 03/19/2023 TECHNIQUE: Ultrasound of the deep veins is performed from the hip to the calf with compression sonography and color and pulse Doppler assessment. Spectral analysis with color-flow imaging is performed. FINDINGS: RIGHT: There is normal venous compression and respiratory variation and augmented flow. The visualized common femoral vein, superficial femoral vein, profunda femoral vein, popliteal vein, and the trifurcation region shows no evidence of deep venous thrombosis. There is no significant popliteal fossa cyst. LEFT: There is normal venous compression and respiratory variation and augmented flow. The visualized common femoral vein, superficial femoral vein, profunda femoral vein, popliteal vein, and the trifurcation region shows no evidence of deep venous thrombosis. There is no significant popliteal fossa cyst. If the patient's symptoms persist, followup ultrasound in 5 days 7 days might be of value to exclude proximal propagation from a non-visualized calf vein. US/US venous duplex LE BI IMPRESSION: No DVT demonstrated in the bilateral lower extremities.
--- NOTE | ~2024-03-03 | XR_ITS ---
EXAMINATION: XR CHEST CLINICAL INFORMATION: Chest pain COMPARISON: Previous chest x-ray December 2020 TECHNIQUE: 2 views of the chest were obtained. FINDINGS: No significant abnormality is noted involving the heart, lungs, mediastinum, bony thorax or soft tissues. XR/XR chest 2V IMPRESSION: Unremarkable examination.
--- NOTE | 2024-03-03 18:26 | ECG_ITS ---
Test Reason : chest pain Blood Pressure : / mmHG Vent. Rate : 089 BPM Atrial Rate : 089 BPM P-R Int : 140 ms QRS Dur : 080 ms QT Int : 362 ms P-R-T Axes : 052 005 023 degrees QTc Int : 440 ms Normal sinus rhythm Low voltage QRS Borderline ECG When compared with ECG of 18-OCT-2019 09:13, No significant change was found Referred By: Generic ED Physician Electronically Signed By:KATHRYN CISSE
[2024-03-03 18:34] VITALS: BP 156/78; PULSE 91; RESP 18; TEMP 36.7; O2SAT 96; BMI 41.6
--- NOTE | 2024-03-03 18:36 | ED.CHESTPAIN ---
HPI - Chest Pain General Chief Complaint: Chest Pain Stated Complaint: chest pain sob bilateral feet swelling Time Seen by Provider: 03/03/24 22:35 Source: patient Mode of arrival: ambulatory Limitations: no limitations History of Present Illness HPI narrative: 58-year-old female came in for evaluation of mid chest pain started since early today around noontime pain has been constant, described as tightness in the chest with radiating to the throat, pain is worse when she takes deep breath no clear relieving factors. patient with history of asthma patient also here wheezing when she taking deep breath. patient noted rash on both lower extremity that is started about week ago seen by her PCP who think it is probably secondary to venous stasis and poor circulation in the lower extremities. No lower extremity swelling or edema, no recent travel, no history of DVT. Related Data Home Medications ?Medication ?Instructions ?Recorded ?Confirmed albuterol sulfate 90 mcg/actuation 2 puff PO Q4-6H PRN dyspnea 12/09/21 11/26/23 aerosol inhaler (ProAir HFA) cetirizine 10 mg tablet 10 mg PO DAILY 12/09/21 11/26/23 fluticasone propionate 50 1 spray intranasal DAILY 12/09/21 11/26/23 mcg/actuation nasal spray,suspension montelukast 10 mg tablet 10 mg PO DAILY 12/09/21 11/26/23 fluticasone 500 mcg-salmeterol 50 1 ea inhalation 12/04/23 mcg/dose blistr powdr for inhalation (Advair Diskus) lidocaine 5 % topical patch patch topical 12/04/23 lisinopril 10 mg tablet 10 mg PO DAILY 12/04/23 mometasone 0.1 % topical ointment topical QAM 12/04/23 Previous Rx's ?Medication ?Instructions ?Recorded furosemide 40 mg tablet 60 mg (1.5 x 40 mg) PO DAILY #45 04/17/23 tabs prednisone 20 mg tablet 40 mg (2 x 20 mg) PO DAILY #14 tabs 11/26/23 peg 3350-electrolytes 236 240 ml PO Q10M colonoscopy #4,000 12/04/23 gram-22.74 gram-6.74 gram-5.86 mL gram solution (Golytely) prednisone 20 mg tablet 20 mg PO BID #10 tabs 03/03/24 Allergies Allergy/AdvReac Type Severity Reaction Status Date / Time nitrofurantoin AdvReac Unknown nausea and Verified 03/03/24 18:39 vomiting From COMPAZINE Allergy Unknown ANAPHYLAXIS Uncoded 03/03/24 18:39 Review of Systems Review of Systems: All other systems are reviewed and are negative Constitutional: Reports as per HPI and Reports no additional constitutional complaints Eyes: Reports as per HPI and Reports no additional eye complaints Reports system reviewed and no additional complaints, except as documented Cardiovascular: Reports as per HPI and Reports no additional cardiovascular complaints Respiratory: Reports as per HPI and Reports no additional respiratory complaints Gastrointestinal: Reports as per HPI and Reports no additional gastrointestinal complaints Genitourinary: Reports no additional female genitourinary complaints Musculoskeletal: Reports no additional musculoskeletal complaints Skin/Breast: Reports system reviewed and no additional complaints, except as docu Psychiatric: Reports no additional psychiatric complaints Endocrine: Reports no additional endocrine complaints Hematologic/Lymphatic: Reports no additional hematologic/lymphatic complaints Allergic/Immunologic: Reports no additional allergic/immunologic complaints Reports system reviewed and no additional complaints, except as documented and Reports Abnormal speech present [facility] Past Medical History Medical History Porcelain gallbladder Asthma Morbid obesity Left flank pain Surgical History History of tubal ligation H/O section Family History Family History Mother Ovarian cancer Maternal Grandfather Throat cancer Social History Social History Alcohol intake: never Patient Tobacco Use Status: Never used Tobacco Advance Directives: No Advance Directives Information Provided: No Physical Exam Vital Signs: Vital Signs: Last Vital Signs Temp 98.1 F 03/03/24 18:34 Pulse 91 03/03/24 18:34 Resp 18 03/03/24 18:34 BP 156/78 H 03/03/24 18:34 Pulse Ox 96 03/03/24 18:34 O2 Del Method Room Air 03/03/24 18:34 BMI result Body Mass Index 41.6 Vital signs have been reviewed and appear to be correct. Blood pressure elevated. Heart rate normal. Respiratory rate normal. Temperature normal. Oxygen saturation normal. Appearance: Alert. Oriented X3. No acute distress. Head: Normal external exam. Normocephalic. Atraumatic. No [place] signs noted. No raccoon eyes noted Eyes: PERRLA. EOMI. Conjunctiva and sclera normal. Eyelids normal. ENT: TM's Normal. Pharynx normal. Uvula midline. Moist mucous membranes. No trismus noted. No drooling noted. No muffled voice noted. Neck: Normal inspection. Neck supple. FROM. No adenopathy. Thyroid Normal. No meningeal signs. No neck mass noted. CVS: Normal heart rate and rhythm. Heart sound normal. No murmurs noted. Pulses normal throughout. Respiratory: No respiratory distress. Painless inspiration. Breath sounds normal. No wheezes/rales/rhonchi noted. Chest nontender. No accessory muscle usage noted or decreased air movement noted. Abdomen: Soft and nontender. Bowel sounds normal in all 4 quadrants. No distention noted. No organomegaly noted. No visible injury noted. Back: No CVA tenderness. Full range of motion noted. Skin: Skin warm and dry. Normal skin color. Normal skin turgor. No rashes/lesions/lacerations noted. Extremities: No lower extremity edema. Extremities exhibit normal range of motion. Extremities nontender. Neuro: Oriented X 3. Cranial nerve exam: II-XII are grossly intact No motor deficit. No sensory deficit. Reflexes normal. Course Course Course Narrative: This is a rapid medical exam completed by Michelle WOOD SCIENCE PROFESSOR: Additional HPI, ROS, PE not included below will be deferred to primary provider. Shortness of breath, midsternal chest pain, pain in bilateral legs. Reevaluation(s) Reevaluation #1: 58-year-old female presented with chest pain that is likely due to asthma, patient has enough albuterol at home and albuterol for nebulizer at home will start the patient on short course of prednisone. Bilateral lower extremity venous stasis, will refer the patient to Dr. Gant for more vascular evaluation. Time: 23:00 Medical Decision Making Differential Diagnosis Differential Diagnoses: The differential diagnosis associated with the presentation includes ( ACS, pneumonia, pleural effusion, bronchitis, asthma exacerbation, electrolyte derangement, severe anemia, DVT, venous stasis.) Admission/Observation Consideration of admission/observation: Escalation of care including admission/observation considered Lab Data MDM Lab Attestation statement: I reviewed the patient's lab results. 03/03/24 19:05 03/03/24 19:05 Labs: Lab Results 03/03/24 03/03/24 Range/Units 19:05 22:35 WBC 8.9 (4.8-10.8) X10*3/uL RBC 4.41 (4.20-5.50) X10*6/uL Hgb 12.7 (12.0-16.0) g/dl Hct 38.1 (37.0-47.0) % MCV 86.4 (80.0-98.0) fL MCH 28.8 (27.0-33.0) pg MCHC 33.3 (31.0-35.0) g/dl RDW 12.5 (11.0-16.0) % Plt Count 258 (160-400) X10*3/uL MPV 10.7 (9.4-12.3) fL Immature Gran % (Auto) 0.3 (0.0-0.4) % Neut % (Auto) 63.4 (45-73) % Lymph % (Auto) 25.6 (20-40) % [place] % (Auto) 7.5 (2-11) % Eos % (Auto) 2.5 (0-4) % Baso % (Auto) 0.7 (0-2) % Lymph # (Auto) 2.3 (1.2-4.9) X10*3/uL [place] # (Auto) 0.7 (0.1-1.2) X10*3/uL Eos # (Auto) 0.2 (0.0-0.4) X10*3/uL Baso # (Auto) 0.1 (0.0-0.2) X10*3/uL Abs Immat Gran (auto) 0.03 (0.00-0.03) X10*3/uL Absolute Neuts (auto) 5.7 (2.0-8.3) x10*3/uL Absolute Nucleated RBC 0.000 (0.0-0.012) X10*3/uL Nucleated RBC % (auto) 0.0 (0.0-0.2) /100WBC Sodium 141 (135-145) mmol/L Potassium 4.0 (3.3-5.1) mmol/L Chloride 105 (96-108) mmol/L Carbon Dioxide 24 (22-29) mmol/L Anion Gap 16 (12-20) BUN 17 H (9-16) mg/dL Creatinine 0.84 (0.5-1.4) mg/dL Estim Creat Clear Calc 90.6 Estimated GFR > 60 Random Glucose 121 H (60-115) mg/dL Calcium 10.3 H D (8.4-10.2) mg/dL Magnesium 1.7 (1.6-2.6) mg/dL Total Bilirubin 0.4 (0.0-1.0) mg/dL AST 23 (5-31) U/L ALT 26 (0-31) U/L Alkaline Phosphatase 92 (39-117) U/L Troponin I High Sens < 2.7 < 2.7 (<3.5-17.0) ng/L Total Protein 7.8 (6.5-8.0) g/dL Albumin 4.2 (3.5-5.0) g/dL Independent Interpretation I performed an independent interpretation of an: Plain X-Ray ( Chest: Unremarkable examination.) and Ultrasound ( Bilateral lower extremities: No DVT.) Radiology Impression Discussion of test interpretation with radiology: I have reviewed the radiologist's reading. Discharge Plan Discharge Clinical Impression: Acute asthma exacerbation, Atypical chest pain, Venous stasis dermatitis Patient Disposition: Home, Self-Care Instructions: Asthma (ED) Prescriptions: New prednisone 20 mg tablet 20 mg PO BID Qty: 10 0RF No Action furosemide 40 mg tablet 60 mg PO DAILY Qty: 45 3RF montelukast 10 mg tablet 10 mg PO DAILY cetirizine 10 mg tablet 10 mg PO DAILY albuterol sulfate [ProAir HFA] 90 mcg/actuation HFA aerosol inhaler 2 puff PO Q4-6H PRN (Reason: dyspnea) fluticasone propionate 50 mcg/actuation spray,suspension 1 spray intranasal DAILY prednisone 20 mg tablet 40 mg PO DAILY Qty: 14 0RF fluticasone propion-salmeterol [Advair Diskus] 500-50 mcg/dose blister with device 1 ea inhalation lidocaine 5 % adhesive patch,medicated topical lisinopril 10 mg tablet 10 mg PO DAILY mometasone 0.1 % ointment topical QAM peg 3350-electrolytes [Golytely] 236-22.74-6.74 -5.86 gram recon soln 240 ml PO Q10M Qty: 4000 0RF Rx Instructions: as per split prep instructions, until fecal effluent is clear Referrals: Elton Gant MD [Physician] - Charlotte Dickens MD [Primary Care Provider] - Print Language: Uzbek
[2024-03-03 19:11] LABS: MANUAL DIFF FLAG NO
[2024-03-03 19:14] LABS: Basophils Absolute Auto 0.1 X10*3/uL (0.0-0.2); Basophils Percent Auto 0.7 % (0-2); Eosinophils Absolute Auto 0.2 X10*3/uL (0.0-0.4); Eosinophils Percent Auto 2.5 % (0-4); Hematocrit 38.1 % (37.0-47.0); Hemoglobin 12.7 g/dl (12.0-16.0); Imm Gran Abs Auto 0.03 X10*3/uL (0.00-0.03); Imm Gran Pct Auto 0.3 % (0.0-0.4); Lymphocytes Absolute Auto 2.3 X10*3/uL (1.2-4.9); Lymphocytes Percent Auto 25.6 % (20-40); Mean Corpuscular HGB Conc 33.3 g/dl (31.0-35.0); Mean Corpuscular Hemoglobin 28.8 pg (27.0-33.0); Mean Corpuscular Volume 86.4 fL (80.0-98.0); Mean Platelet Volume 10.7 fL (9.4-12.3); Monocytes Absolute Auto 0.7 X10*3/uL (0.1-1.2); Monocytes Percent Auto 7.5 % (2-11); Neutrophils Absolute Auto 5.7 x10*3/uL (2.0-8.3); Neutrophils Percent Auto 63.4 % (45-73); Platelet Count 258 X10*3/uL (160-400); Red Blood Count 4.41 X10*6/uL (4.20-5.50); Red Cell Distribution Width 12.5 % (11.0-16.0); White Blood Count 8.9 X10*3/uL (4.8-10.8)
[2024-03-03 19:31] LABS: Alanine Aminotransferase 26 U/L (0-31); Albumin Level 4.2 g/dL (3.5-5.0); Alkaline Phosphatase 92 U/L (39-117); Anion Gap 16 (12-20); Aspartate Amino Transferase 23 U/L (5-31); Bilirubin Total 0.4 mg/dL (0.0-1.0); Blood Urea Nitrogen 17 mg/dL (9-16); Calcium 10.3 mg/dL (8.4-10.2); Carbon Dioxide 24 mmol/L (22-29); Chloride 105 mmol/L (96-108); Creatinine Clr Calc Pharmacy 90.6; Estimated Glomerular Filt Rate > 60; Glucose Random 121 mg/dL (60-115); Magnesium 1.7 mg/dL (1.6-2.6); Sodium 141 mmol/L (135-145); Total Protein 7.8 g/dL (6.5-8.0)
[2024-03-03 19:40] LABS: Troponin-I High Sensitivity < 2.7 ng/L (<3.5-17.0)
[2024-03-03 23:01] LABS: Troponin-I High Sensitivity < 2.7 ng/L (<3.5-17.0)
[2024-03-04 00:16] VITALS: BP 130/68; PULSE 76; RESP 17; TEMP 36.7; O2SAT 96
== END 2024-03-04 00:17 | disposition home or self-care (01) ==
PROVIDERS: Nurse Practitioner Family; Emergency Provider Emergency Medicine; PCP Family Medicine
DX: J45.901 Unspecified asthma with (acute) exacerbation (principal); R07.89 Other chest pain; R60.0 Localized edema; L30.8 Other specified dermatitis; I87.2 Venous insufficiency (chronic) (peripheral); Z79.899 Other long term (current) drug therapy
CPT/HCPCS: 36415; 71046; 80053; 83735; 84484; 85025; 93005; 93970; 99283; 99284

== ENCOUNTER → 2024-03-03 18:26 | Outpatient (BNV) | payer MEDICAID, SELFPAY | PROVIDERS: Emergency Provider Emergency Medicine; PCP Family Medicine; Visit Provider Internal Medicine | DX: R07.9 Chest pain, unspecified (principal) | CPT/HCPCS: 93010 ==

== ENCOUNTER 2024-03-11 11:14 | Outpatient (AMB) | payer MEDICAID, SELFPAY ==
[2024-03-11 12:00] VITALS: BP 148/67; PULSE 84; BMI 41.4
--- NOTE | 2024-03-11 12:00 | MHC.OFFVIS ---
Vital Signs 03/11/24 12:00 Height 5 ft 4 in Weight 241 lb 2.971 oz BMI 41.4 BP 148/67 H Blood Pressure Location Lt brachial Position Sitting Pulse 84 Intake Visit Reasons: 3 month follow up Intake Note: Patient here for 3m f/u GERD. Reports no improvement with Omeprazole. Patient c/o: acid reflux worse at night while laying down. Update in medical HX: Recently diagnosed with diabetes. Prescribed Metformin. Paperboard Boxes Estimator Required: No Accompanied by: daughter Jacqui Almodovar Allergies nitrofurantoin Adverse Reaction (Unknown, Verified 03/11/24 12:06) nausea and vomiting From COMPAZINE Allergy (Unknown, Uncoded 03/11/24 12:06) ANAPHYLAXIS HPI Comments Details: This is a 58 y.o F with PMH of asthma, NE, porcelain gallbladder, presents to the office for elevated AFP . Patient herself reports left lower quadrant pain associated with constipation. States that cramping gets worse as she is trying to have a bowel movement and resolves after she has passed a bowel movement. Occurs at least 2 to 3 times a month. In terms of the initial referral reason that is elevated LFT, this is from 2019, and since then she has had a contrasted CT scan last year, that did not show any lesion in her liver. It did however show porcelain gallbladder. She has been seen by General surgery and there was mentioned agreement to manage it conservatively. Patient herself does not report any nausea, vomiting, postprandial discomfort or right upper quadrant pain. No history of pancreatitis. 03/11/24: here for 3m follow up with her daughter. Labs done but CT still pending, had covid so had to tawana her appt - now booked for next week. Also had to tawana her colo for the same reason. no acute GI complaints. Labs reviewed - normal LFTs. [facility] Medical History (Updated 03/11/24 @ 12:09 by RUPERTO Bojorquez) Diabetes Porcelain gallbladder Asthma Morbid obesity Left flank pain Surgical History History of tubal ligation H/O section Family History Mother Ovarian cancer Maternal Grandfather Throat cancer Social History Alcohol intake: never Patient Tobacco Use Status: Never used Tobacco Review of Systems Const All systems reviewed & are unremarkable except as noted in HPI and below Physical Exam Vital Signs: Last Vital Signs Pulse 84 03/11/24 12:00 BP 148/67 H 03/11/24 12:00 BMI result Body Mass Index 41.4 NAD nonicteric abd soft, nontender, nondistended No CHAR Assessment & Plan Assessment & Plan (1) Constipation: Code(s): K59.00 - Constipation, unspecified Category: Medical (2) Porcelain gallbladder: Code(s): K82.8 - Other specified diseases of gallbladder Category: Medical (3) Elevated AFP: Code(s): R77.2 - Abnormality of alphafetoprotein Category: Medical (4) Colon cancer screening: Code(s): Z12.11 - Encounter for screening for malignant neoplasm of colon Category: Medical Plan 1. Chronic idiopathic constipation: Improving with changes discussed previous visit -recommend increase water intake -at fiber -add stimulant laxatives such as senna or bisacodyl as needed for constipation. -if this does not work, can also further add MiraLax to be taken 1 to 2 times a day or as needed. 2. Porcelain gallbladder: Discuss the very small risk of developing gallbladder cancer, as well as other symptoms such as biliary pain, cholangitis, pancreatitis. Patient has been seen by surgery in the past, decision was made for conservative management. -CT abdomen and pelvis with contrast ordered - pending 3. Elevated AFP: Reviewed with the patient that this tumor marker alone can not be used to screen for cancer. No liver lesion was seen on the CT from 2021. LFT[address] normal. CT pending as above - daughter requests results be communicated over the phone to her: Liliya - [phone] 4. Colorectal cancer screening: Pt had to reschedule her colo due to illness on 03/03. Informed that office will call her to make the appt. She already has the prep. Follow up after colo. Coding Level of Care Code Est Pt Level 3 (92032) Diagnoses Constipation K59.00 Porcelain gallbladder K82.8 Elevated AFP R77.2 Colon cancer screening Z12.11
== END 2024-03-11 12:43 | disposition home or self-care (01) ==
PROVIDERS: PCP Family Medicine; Visit Provider Internal Medicine
DX: K59.00 Constipation, unspecified (principal); K82.8 Other specified diseases of gallbladder; R77.2 Abnormality of alphafetoprotein; Z12.11 Encounter for screening for malignant neoplasm of colon
CPT/HCPCS: 99213

== ENCOUNTER → 2024-03-11 11:14 | Outpatient (BNVA) | payer MEDICAID, SELFPAY | PROVIDERS: PCP Family Medicine; Visit Provider Internal Medicine | DX: K59.04 Chronic idiopathic constipation (principal); K82.8 Other specified diseases of gallbladder; R77.2 Abnormality of alphafetoprotein | CPT/HCPCS: 99212 ==

== ENCOUNTER 2024-04-01 15:29 | Emergency (ER) | payer MEDICAID, SELFPAY ==
--- NOTE | ~2024-04-01 | XR_ITS ---
EXAMINATION: XR FOOT, LEFT CLINICAL INFORMATION: Atraumatic left foot pain COMPARISON: March 19, 2023 TECHNIQUE: AP, lateral, and oblique views of the left foot. FINDINGS: The bones and soft tissues are normal. No fracture. Alignment is anatomic. Joint spaces are maintained. Normal variant of os navicularis. Small plantar calcaneal spur. XR/XR foot LT min 3V IMPRESSION: 1. No acute fracture or dislocation. 2. Small plantar calcaneal spur.
[2024-04-01 15:44] VITALS: BP 152/69; PULSE 82; RESP 20; TEMP 36.1; O2SAT 98; BMI 42.2
--- NOTE | 2024-04-01 15:45 | ED_ITS ---
HPI - General Adult General Chief complaint: Extremity Injury, Lower Stated complaint: Left foot pain Time Seen by Provider: 04/01/24 18:01 History of Present Illness HPI narrative: This is a 58-year-old woman with a past medical history of asthma, diabetes mellitus, anxiety/depression, GERD, NE who presents for evaluation of left foot pain and dysuria. Patient's daughter provides interpretation. Formal interpreter for the deaf offer, but is declined. She states that she has been having pain on the top of her left foot for the last week. She states no trauma or falls. She states no skin changes. She states that her left foot appears more swollen than usual. She reports that she does take a water pill for swelling in her legs. She states no history of congestive heart failure cardiac history otherwise. She states 2 days of dysuria. She states no flank pain. She states no abdominal pain, nausea or vomiting. She states that she is more concerned about the pain on her left foot than anything. Related Data Home Medications ?Medication ?Instructions ?Recorded ?Confirmed albuterol sulfate 90 mcg/actuation 2 puff PO Q4-6H PRN dyspnea 12/09/21 11/26/23 aerosol inhaler (ProAir HFA) cetirizine 10 mg tablet 10 mg PO DAILY 12/09/21 11/26/23 fluticasone propionate 50 1 spray intranasal DAILY 12/09/21 11/26/23 mcg/actuation nasal spray,suspension montelukast 10 mg tablet 10 mg PO DAILY 12/09/21 11/26/23 fluticasone 500 mcg-salmeterol 50 1 ea inhalation 12/04/23 mcg/dose blistr powdr for inhalation (Advair Diskus) lidocaine 5 % topical patch patch topical 12/04/23 lisinopril 10 mg tablet 10 mg PO DAILY 12/04/23 mometasone 0.1 % topical ointment topical QAM 12/04/23 Previous Rx's ?Medication ?Instructions ?Recorded furosemide 40 mg tablet 60 mg (1.5 x 40 mg) PO DAILY #45 04/17/23 tabs prednisone 20 mg tablet 40 mg (2 x 20 mg) PO DAILY #14 tabs 11/26/23 peg 3350-electrolytes 236 240 ml PO Q10M colonoscopy #4,000 12/04/23 gram-22.74 gram-6.74 gram-5.86 mL gram solution (Golytely) prednisone 20 mg tablet 20 mg PO BID #10 tabs 03/03/24 acetaminophen 500 mg tablet 1,000 mg (2 x 500 mg) PO Q8H PRN 04/01/24 (Tylenol Extra Strength) pain #30 tabs ibuprofen 600 mg tablet 600 mg PO Q6H PRN pain #30 tabs 04/01/24 Allergies Allergy/AdvReac Type Severity Reaction Status Date / Time nitrofurantoin AdvReac Unknown nausea and Verified 04/01/24 15:47 vomiting From COMPAZINE Allergy Unknown ANAPHYLAXIS Uncoded 03/11/24 12:06 Review of Systems 2 Review of Systems: ROS as per [facility] Past Medical History Medical History (Updated 04/01/24 @ 19:31 by Alejandro Solorzano MD) Diabetes Porcelain gallbladder Asthma Morbid obesity Left flank pain Surgical History History of tubal ligation H/O section Family History Family History Mother Ovarian cancer Maternal Grandfather Throat cancer Social History Social History Alcohol intake: never Patient Tobacco Use Status: Never used Tobacco Advance Directives: No Advance Directives Information Provided: No Do you have a plan to hurt others: No Plan Physical Exam ED Vital Signs: Vital Signs - 24 hr 04/01/24 15:44 04/01/24 16:52 04/01/24 18:57 Temperature 96.9 F 97.8 F 98.3 F Pulse Rate 82 78 76 Respiratory Rate 20 20 20 Blood Pressure 152/69 H 150/74 H 156/72 H Pulse Oximetry 98 98 98 Oxygen Delivery Method Room Air Room Air Room Air BMI result Body Mass Index 42.2 Gen: NAD, AOx3 HEENT: NCAT, EOMI, normal conjunctiva CV: RRR, 2+ DP/PT pulses Pulm: CTAB, no increased work of breathing GI: Soft, NTND, no rebound, guarding or rigidity MSK: Bilateral lower extremity compartments are soft with intact overlying skin no overlying skin changes, there is mild tenderness to palpation over the forefoot, no bilateral calf swelling or tenderness to palpation, no collateral superficial veins to the left lower extremity, no tenderness to palpation right- sided deep venous system, no edema confined to the left leg, no tenderness to palpation to the bilateral knee and tibia/fibula Neuro: Grossly non focal Course Course Course Narrative: This is a Rapid Medical Examination (RME) performed by Viktor Gibson PA-C in triage. Full HPI, ROS, assessment and treatment plan per primary provider in the Main ED. 58 yo macanese speaking female hx of severe persistent asthma, morbid obesity, DM, NE here for eval of left foot pain/ swelling x1 week. pain located to lateral left foot and along base of 5th metatarsal. no injury/ trauma. no recent travel/ long car rides. also complains of dysuria and increased urinary frequency x2 days. no hematuria. on exam, 1+ pitting edema noted to b/l LE. ttp at base of left 5th metatarsal. no palpable deformity. ambulating w/ antalgic gait. Plan: xr, UA, labs ordered. Medications Administered Discontinued Medications Generic Name Dose Route Start Last Admin Trade Name Freq PRN Reason Stop Dose Admin Ketorolac Tromethamine 30 mg 04/01/24 18:28 04/01/24 18:45 Ketorolac Tromethamine 30 Mg/Ml Vial IM 04/01/24 18:29 30 mg ONCE ONE Administration Ketorolac Tromethamine 30 mg 04/01/24 19:03 04/01/24 19:07 Ketorolac Tromethamine 30 Mg/Ml Vial IM 04/01/24 19:04 Not Given ONCE ONE Medical Decision Making Medical Decision Making MDM Narrative: Differential diagnosis includes, but is not limited to strain, sprain, fracture, dislocation. Patient is afebrile and hemodynamically stable on room air. Exam is benign and reassuring. The affected left lower extremity is neurovascularly intact. I reviewed and interpreted labs, which are noncontributory. X-ray of the foot is unremarkable for any acute findings as below. I have low suspicion for deep venous thrombosis given history and exam. I considered gout and cellulitis, but there are no exam findings to suggest these etiologies given lack of focal edema or erythema. Thus, these are less likely as well. Patient is provided Toradol for analgesia and postop shoe. Urinalysis unremarkable and is not suggestive of urinary tract infection. On re-examination, patient is well-appearing and in no acute distress.?There is no indication for further emergent evaluation in this otherwise well-appearing patient as above. ?Patient is provided written and verbal instructions, educational materials, recommendations for outpatient follow-up, strict return precautions, prescription for ibuprofen and Tylenol and teach back is performed. ?Patient states understanding and agreement with plan of care. ?Patient is discharged home in stable and improved condition. Lab Data MDM Lab Attestation statement: I reviewed the patient's lab results. 04/01/24 16:49 04/01/24 16:49 Labs: Lab Results 04/01/24 Range/Units 16:49 WBC 5.9 (4.8-10.8) X10*3/uL RBC 4.08 L (4.20-5.50) X10*6/uL Hgb 11.6 L (12.0-16.0) g/dl Hct 35.3 L (37.0-47.0) % MCV 86.5 (80.0-98.0) fL MCH 28.4 (27.0-33.0) pg MCHC 32.9 (31.0-35.0) g/dl RDW 12.4 (11.0-16.0) % Plt Count 234 (160-400) X10*3/uL MPV 10.7 (9.4-12.3) fL Immature Gran % (Auto) 0.3 (0.0-0.4) % Neut % (Auto) 52.3 (45-73) % Lymph % (Auto) 35.9 (20-40) % [place] % (Auto) 6.4 (2-11) % Eos % (Auto) 4.6 H (0-4) % Baso % (Auto) 0.5 (0-2) % Lymph # (Auto) 2.1 (1.2-4.9) X10*3/uL [place] # (Auto) 0.4 (0.1-1.2) X10*3/uL Eos # (Auto) 0.3 (0.0-0.4) X10*3/uL Baso # (Auto) 0.0 (0.0-0.2) X10*3/uL Abs Immat Gran (auto) 0.02 (0.00-0.03) X10*3/uL Absolute Neuts (auto) 3.1 (2.0-8.3) x10*3/uL Absolute Nucleated RBC 0.000 (0.0-0.012) X10*3/uL Nucleated RBC % (auto) 0.0 (0.0-0.2) /100WBC Sodium 143 (135-145) mmol/L Potassium 4.0 (3.3-5.1) mmol/L Chloride 108 (96-108) mmol/L Carbon Dioxide 29 (22-29) mmol/L Anion Gap 10 L (12-20) BUN 13 (9-16) mg/dL Creatinine 0.80 (0.5-1.4) mg/dL Estim Creat Clear Calc 96.0 Estimated GFR > 60 Random Glucose 173 H (60-115) mg/dL Calcium 9.6 D (8.4-10.2) mg/dL Magnesium 1.8 (1.6-2.6) mg/dL Total Bilirubin 0.2 (0.0-1.0) mg/dL AST 21 (5-31) U/L ALT 18 (0-31) U/L Alkaline Phosphatase 89 (39-117) U/L Total Protein 7.2 (6.5-8.0) g/dL Albumin 4.0 (3.5-5.0) g/dL Urine Color Yellow Urine Appearance Clear Urine pH 5.5 (5.0-9.0) Ur Specific [place] 1.020 (1.005-1.025) Urine Protein Negative (Neg-Trace) mg/dL Urine Glucose (UA) Negative (Negative) mg/dL Urine Ketones Negative (Negative) mg/dL Urine Blood Negative (Negative) Urine Nitrite Negative (Negative) Ur Leukocyte Esterase Negative (Negative) Radiology Impression Discussion of test interpretation with radiology: I have reviewed the radiologist's reading. Radiologist Impression: XR/XR foot LT min 3V IMPRESSION: 1. No acute fracture or dislocation. 2. Small plantar calcaneal spur. Dictated By: David Lord MD Signed By: <Electronically signed by David Lord MD in OV> 04/01/24 5160 Discharge Plan Discharge Clinical Impression: Acute pain of left foot Patient Disposition: Home, Self-Care Instructions: Arthralgia (ED) Additional Instructions: You were seen and evaluated in the emergency room. Your blood work was reassuring. The x-ray of your foot showed no fracture or dislocation. You are given a prescription for ibuprofen and Tylenol. Please take as directed. Please always take ibuprofen with food and water each time. Please follow-up with your primary care doctor in the next 5-7 days. ? Please return to the emergency room if you develop any worsening symptoms including, but not limited to new leg pain/swelling/redness or new rashes to your leg. Fue atendido y evaluado en la anna de emergencias. Tu an?lisis de roberto fue tranquilizador. La radiograf?a de damon pie no mostr? fractura ni dislocaci?n. Le recetan ibuprofeno y Tylenol. T?raya seg?n las indicaciones. Mantoloking siempre ibuprofeno con comida y agua cada vez. Ced un seguimiento con damon m?dico de atenci?n primaria en los pr?ximos 5 a 7 d?as. ? Regrese a la anna de emergencias si presenta alg?n s?ntoma que empeore, incluidos, entre otros, nuevos jovany/hinchaz?n/enrojecimiento en las piernas o nuevas erupciones en la pierna. Prescriptions: New ibuprofen 600 mg tablet 600 mg PO Q6H PRN (Reason: pain) Qty: 30 0RF acetaminophen [Tylenol Extra Strength] 500 mg tablet 1,000 mg PO Q8H PRN (Reason: pain) Qty: 30 0RF No Action furosemide 40 mg tablet 60 mg PO DAILY Qty: 45 3RF prednisone 20 mg tablet 20 mg PO BID Qty: 10 0RF montelukast 10 mg tablet 10 mg PO DAILY cetirizine 10 mg tablet 10 mg PO DAILY albuterol sulfate [ProAir HFA] 90 mcg/actuation HFA aerosol inhaler 2 puff PO Q4-6H PRN (Reason: dyspnea) fluticasone propionate 50 mcg/actuation spray,suspension 1 spray intranasal DAILY prednisone 20 mg tablet 40 mg PO DAILY Qty: 14 0RF fluticasone propion-salmeterol [Advair Diskus] 500-50 mcg/dose blister with device 1 ea inhalation lidocaine 5 % adhesive patch,medicated topical lisinopril 10 mg tablet 10 mg PO DAILY mometasone 0.1 % ointment topical QAM peg 3350-electrolytes [Golytely] 236-22.74-6.74 -5.86 gram recon soln 240 ml PO Q10M Qty: 4000 0RF Rx Instructions: as per split prep instructions, until fecal effluent is clear Print Language: Mozambican
[2024-04-01 16:52] VITALS: BP 150/74; PULSE 78; RESP 20; TEMP 36.6; O2SAT 98
[2024-04-01 16:53] LABS: MANUAL DIFF FLAG NO
[2024-04-01 17:02] LABS: Basophils Percent Auto 0.5 % (0-2); Eosinophils Absolute Auto 0.3 X10*3/uL (0.0-0.4); Eosinophils Percent Auto 4.6 % (0-4); Hematocrit 35.3 % (37.0-47.0); Hemoglobin 11.6 g/dl (12.0-16.0); Imm Gran Abs Auto 0.02 X10*3/uL (0.00-0.03); Imm Gran Pct Auto 0.3 % (0.0-0.4); Lymphocytes Absolute Auto 2.1 X10*3/uL (1.2-4.9); Lymphocytes Percent Auto 35.9 % (20-40); Mean Corpuscular HGB Conc 32.9 g/dl (31.0-35.0); Mean Corpuscular Hemoglobin 28.4 pg (27.0-33.0); Mean Corpuscular Volume 86.5 fL (80.0-98.0); Mean Platelet Volume 10.7 fL (9.4-12.3); Monocytes Absolute Auto 0.4 X10*3/uL (0.1-1.2); Monocytes Percent Auto 6.4 % (2-11); Neutrophils Absolute Auto 3.1 x10*3/uL (2.0-8.3); Neutrophils Percent Auto 52.3 % (45-73); Platelet Count 234 X10*3/uL (160-400); Red Blood Count 4.08 X10*6/uL (4.20-5.50); Red Cell Distribution Width 12.4 % (11.0-16.0); White Blood Count 5.9 X10*3/uL (4.8-10.8)
[2024-04-01 17:08] LABS: Alanine Aminotransferase 18 U/L (0-31); Alkaline Phosphatase 89 U/L (39-117); Anion Gap 10 (12-20); Aspartate Amino Transferase 21 U/L (5-31); Bilirubin Total 0.2 mg/dL (0.0-1.0); Blood Urea Nitrogen 13 mg/dL (9-16); Calcium 9.6 mg/dL (8.4-10.2); Carbon Dioxide 29 mmol/L (22-29); Chloride 108 mmol/L (96-108); Estimated Glomerular Filt Rate > 60; Glucose Random 173 mg/dL (60-115); Magnesium 1.8 mg/dL (1.6-2.6); Sodium 143 mmol/L (135-145); Total Protein 7.2 g/dL (6.5-8.0)
[2024-04-01 17:12] LABS: Appearance Urine Clear; Color Urine Yellow; Glucose Urine UA Negative (Negative); Leukocyte Esterase Urine Negative (Negative); Nitrite Urine Negative (Negative); PH 5.5 (5.0-9.0); Urine Blood Negative (Negative); Urine Ketones Negative (Negative); Urine Protein Negative (Neg-Trace)
[2024-04-01] MEDS: Ketorolac Tromethamine 30 MG/ML VIAL IM (18:45)
[2024-04-01 18:57] VITALS: BP 156/72; PULSE 76; RESP 20; TEMP 36.8; O2SAT 98
[2024-04-01 19:47] VITALS: BP 156/72; PULSE 76; RESP 20; TEMP 36.8; O2SAT 98
== END 2024-04-01 19:48 | disposition home or self-care (01) ==
PROVIDERS: Physician Assistant Medical; Emergency Provider Emergency Medicine; PCP Family Medicine
DX: M79.672 Pain in left foot (principal); R30.0 Dysuria; E11.9 Type 2 diabetes mellitus without complications; J45.50 Severe persistent asthma, uncomplicated
CPT/HCPCS: 36415; 73630; 80053; 81003; 83735; 85025; 96372; 99283; 99284; J1885

== ENCOUNTER 2024-04-19 07:01 | Outpatient (REF) | payer MEDICAID, SELFPAY ==
--- NOTE | ~2024-04-19 | CT_ITS ---
EXAMINATION: CT ABDOMEN AND PELVIS WITH CONTRAST CLINICAL INFORMATION: Porcelain gallbladder. COMPARISON: CT abdomen and pelvis 01/15/2022. TECHNIQUE: Multidetector volumetric images were obtained from the superior aspect of the liver through the pubic symphysis following administration 85 mL of Omnipaque 350 intravenous contrast. Sagittal and coronal reformatted images were obtained on the technologist's workstation. Oral contrast: No This CT examination was performed using dose optimization techniques as appropriate, variously including the following: *Automated exposure control *Adjustment of mA and/or kV according to patient size (this includes techniques or standardized protocols for targeted exams where dose is matched to indication/reason for exam; i.e. extremities or head) *Use of iterative reconstruction technique DLP: 637 mGy-cm FINDINGS: LUNG BASES: The visualized lung bases are unremarkable. LIVER, GALLBLADDER, AND BILIARY TREE: The liver is enlarged measuring 20.5 cm. Slight low attenuation suggesting steatosis. No discrete liver mass. No biliary ductal dilatation. Incomplete thin mural calcification along the gallbladder fundus. No visible focal soft tissue mass. PANCREAS: No discrete mass or ductal dilatation. SPLEEN: The spleen is normal in size. ADRENAL GLANDS: No adrenal mass. KIDNEYS AND URETERS: Likely congenitally atrophic kidney with compensatory hypertrophy of the right kidney. No visible renal mass. No nephrolithiasis or hydronephrosis. BLADDER: Unremarkable. GASTROINTESTINAL TRACT: Small hiatal hernia. The small and large bowel are normal in caliber. No visible bowel mass. ABDOMINAL WALL: No significant hernia is appreciated. LYMPH NODES: No lymphadenopathy. VASCULAR: No aortic aneurysm. Mild atherosclerosis. PELVIC VISCERA: Unremarkable. OSSEOUS STRUCTURES: Mild degenerative changes in the spine. CT/CT abdomen pelvis w IV con IMPRESSION: Porcelain gallbladder with discontinuous/incomplete mural calcification. Continued surveillance is recommended if surgical resection is not performed. Hepatic steatosis. Atrophic left kidney with compensatory hypertrophy of the right kidney.
[2024-04-19] MEDS: iohexoL 350 MG/ML 75 ML INFUS..BTL 85 ML IV (09:04)
== END 2024-04-19 07:02 | disposition home or self-care (01) ==
LOC: HO.CT 07:01
PROVIDERS: PCP Family Medicine; Visit Provider Internal Medicine
DX: K82.8 Other specified diseases of gallbladder (principal)
CPT/HCPCS: 74177; Q9967

== ENCOUNTER 2024-05-24 10:24 | Outpatient (REF) | payer MEDICAID, SELFPAY ==
[2024-05-24 12:15] LABS: Alanine Aminotransferase 20 U/L (0-31); Albumin Level 4.1 g/dL (3.5-5.0); Alkaline Phosphatase 93 U/L (39-117); Aspartate Amino Transferase 25 U/L (5-31); Bilirubin Direct 0.2 mg/dL (0.0-0.5); Bilirubin Total 0.5 mg/dL (0.0-1.0); Gamma Glutamyl Transpeptidase 80 U/L (7-33); Total Protein 7.3 g/dL (6.5-8.0)
[2024-05-26 13:03] LABS: Alpha Fetoprotein 7.2 ng/mL
[2024-05-27 10:50] LABS: Carbohydrate Antigen 19-9 28 U/mL (<34)
== END 2024-05-24 10:25 | disposition home or self-care (01) ==
LOC: HO.LAB 10:24
PROVIDERS: PCP Family Medicine; Visit Provider Internal Medicine
DX: R77.2 Abnormality of alphafetoprotein (principal); K82.8 Other specified diseases of gallbladder
CPT/HCPCS: 36415; 80076; 82105; 82378; 82977; 86301

== ENCOUNTER 2024-06-15 12:57 | Outpatient (REF) | payer MEDICAID, SELFPAY | END 2024-06-15 12:58 | disposition home or self-care (01) | LOC: HO.HOSX 12:57 | PROVIDERS: Visit Provider Orthopaedic Surgery | DX: Z13.89 Encounter for screening for other disorder (principal) ==

== ENCOUNTER 2025-04-17 12:47 | Outpatient (REF) | payer MEDICAID, SELFPAY ==
--- OUTSIDE RECORDS SUMMARY | 2025-04-17 14:09 | XMS_ITS | Encounter Summary ---
Author Organization [employer] Address [address] [facility] [address] [place] [address] Care Team Providers Care Lung Splitter Name Role Phone Charlotte Dickens MD Primary Care Provider [phone] Reason for Visit * Reason Comments Med Refill Encounter Details Date Type Department Care Team ([facility] st Contact Info) Description 12/23/2024 Refill [facility] [address] [place], [place] [phone] Chas Angel MD [address] [place], [place] [phone] Vertigo Social History Tobacco Use Types Packs/Day Years Used Date Smoking Tobacco: Never Passive Smoke Exposure: Never Smokeless Tobacco: Never Depression Answer Date Recorded Patient Health Questionnaire-9 Score 0 04/12/2024 Patient Health Questionnaire-9 Score 0 04/12/2024 Last PHQ-9: Questionnaire Data Not on file 0 04/12/2024 Housing Stability Answer Date Recorded What is your housing situation today? I have shayeshyann betancourt 11/28/[address] you li ve. Do you have problems with any of the following? None of the above 11/28/2024 Food Insecurity Answer Date Recorded Within the past 12 months, y ou worried that your food would run out before you got money to buy more: Sometimes True 2024 Within the past 12 months,th e food you bought just didn't last and you didn't have enough money to get more: Sometimes True 11/28/2024 Transportation Answer Date Recorded In the past 12 months, has l ack of transportation kept you from medical appts, meetings, work or from getting things needed for daily living? No 11/28/2024 Utilities Answer Date Recorded In the past 12 months, has t he electric, gas, oil or water company threatened to shut off services in your home? No 11/28/2024 Depression Answer Date Recorded Patient Health Questionnaire-2 Score 0 04/12/2024 Internet Access Answer Date Recorded Internet Access Q1 Yes 11/28/2024 Internet Access Q2 Not on file 11/28/2024 Comments No Sex and Gender Information Value Date Recorded Sex Assigned at Female 09/01/2022 10:17 AM EDT Legal Sex Female 10:17 AM EDT Gender Identity Female 09/01/2022 10:17 AM EDT Sexual Orientation Choose not to disclose 2021 10:17 AM EDT documented as of this encounter Plan of Treatment Not on file documented as of this encounter Visit Diagnoses Diagnosis Vertigo Dizziness and giddiness documented in this encounter Additional Health Concerns Assessment Noted Time PHQ-9 Depression Total Score: 0 04/12/20 24 2:57 PM EDT documented as of this encounter Care Teams Lung Splitter Relationship Specialty Start Date End Date Charlotte Dickens MD [address] [place] [id number] PCP - General Family Medicine 05/19/14 documented as of this encounter
[2025-04-17 16:57] LABS: Alanine Aminotransferase 24 U/L (0-31); Albumin Level 4.1 g/dL (3.5-5.0); Alkaline Phosphatase 122 U/L (39-117); Anion Gap 12 (12-20); Aspartate Amino Transferase 32 U/L (5-31); Bilirubin Total 0.8 mg/dL (0.0-1.0); Blood Urea Nitrogen 7 mg/dL (9-16); Calcium 9.3 mg/dL (8.4-10.2); Carbon Dioxide 24 mmol/L (22-29); Chloride 106 mmol/L (96-108); Cholesterol 203 mg/dL (<200); Estimated Glomerular Filt Rate > 60; Glucose Random 346 mg/dL (60-115); HDL Cholesterol 44 mg/dL (>40); LDL Cholesterol Calculated 122 mg/dL (<100); Potassium 3.8 mmol/L (3.3-5.1); Sodium 138 mmol/L (135-145); TSH reflex Free T4 1.89 uIU/mL (0.32-4.0); Triglycerides 186 mg/dL (<150)
[2025-04-17 17:13] LABS: Folate 11.2 ng/mL (> or = 4.0); Vitamin B12 655 pg/mL (200-900)
[2025-04-17 18:14] LABS: Reflex LDLD? No
[2025-04-18 03:43] LABS: ~HepC Num1 10.83 S/CO (0.00-0.79); ~Hepatitis C Antibody Reactive (Nonreactive)
[2025-04-20 14:19] LABS: HCV Log PCR <1.18 NOT DETECTED Log IU/mL (NOT DETECTED); HepC Viral Load <15 NOT DETECTED IU/mL (NOT DETECTED)
== END 2025-04-17 12:48 | disposition home or self-care (01) ==
LOC: HO.HHCL 12:47
PROVIDERS: Visit Provider Family Medicine
DX: E11.9 Type 2 diabetes mellitus without complications (principal); E78.5 Hyperlipidemia, unspecified; I10 Essential (primary) hypertension; E66.812 Obesity, class 2; E66.01 Morbid (severe) obesity due to excess calories; Z68.36 Body mass index [BMI] 36.0-36.9, adult
CPT/HCPCS: 36415; 80053; 80061; 82607; 82746; 84443; 86803; 87522

== ENCOUNTER 2025-04-18 13:22 | Outpatient (REF) | payer MEDICAID, SELFPAY ==
--- OUTSIDE RECORDS SUMMARY | 2025-04-18 15:13 | XMS_ITS | Encounter Summary ---
Author Organization [employer] Address [address] [facility] [address] [place] [address] Care Team Providers Care Wire Inserter Name Role Phone Charlotte Dickens MD Primary Care Provider [phone] Reason for Visit * Reason Comments Med Refill Encounter Details Date Type Department Care Team ([facility] st Contact Info) Description 12/23/2024 Refill [facility] [address] [place], [place] [phone] Chas Angel MD [address] [place], [place] [phone] Vertigo Social History Tobacco Use Types Packs/Day [...] documented as of this encounter Care Teams Wire Inserter Relationship Specialty Start Date End Date Charlotte Dickens MD [address] [place] [id number] PCP - General Family Medicine 05/19/14 documented as of this encounter
[2025-04-18 16:11] LABS: Appearance Urine Clear; Color Urine Yellow; Glucose Urine UA >=1000 mg/dL (Negative); Leukocyte Esterase Urine Negative (Negative); Nitrite Urine Negative (Negative); PH 5.5 (5.0-9.0); Specific Gravity - Urine >= 1.030 (1.005-1.025); UMIC TRIGGER UACC YES; Urine Blood Negative (Negative); Urine Ketones 15 mg/dL (Negative); Urine Protein Negative (Neg-Trace)
[2025-04-18 16:26] LABS: Bacteria Urine 1+ (None Seen); Hyaline Casts Urine 0-2 /LPF (0-2); RBC Urine 0-2 /HPF (0-2); WBC Urine 0-5 /HPF (0-5)
[2025-04-18 17:47] LABS: Creatinine Urine 102.75 mg/dL; Microalbum/Creatinine Ratio Ur 19.4 ug/mg cr (<30)
== END 2025-04-18 13:23 | disposition home or self-care (01) ==
LOC: HO.HHCL 13:22
PROVIDERS: Visit Provider Family Medicine
DX: E11.9 Type 2 diabetes mellitus without complications (principal)
CPT/HCPCS: 81001; 82043; 82570

== ENCOUNTER 2025-06-15 13:19 | Outpatient (REF) | payer MEDICAID, SELFPAY ==
--- NOTE | ~2025-06-15 | MM_ITS ---
EXAMINATION: MM SCREENING DIGITAL BREAST TOMOSYNTHESIS, BILATERAL CLINICAL INFORMATION: Screening. Asymptomatic. COMPARISON: Mammography: Comparison is made with available priors TECHNIQUE: Digital breast mammography with tomosynthesis is performed in both the craniocaudal and mediolateral oblique views along with computer-aided detection (CAD). FINDINGS: The breasts are almost entirely fatty (ACR BI-RADS breast composition Category a). There are no significant masses, abnormal calcifications, or other abnormalities. MM/MM tomosynthesis screening BI IMPRESSION: No mammographic evidence of malignancy. ASSESSMENT: BI-RADS BI-RADS 1 - Negative RECOMMENDATION: Routine annual mammography screening. 1 year F/U This examination should not preclude the clinical evaluation of a suspicious palpable abnormality. This patient's information was entered into a reminder system with a target due date for their next mammogram. Electronically signed by: Meredith Lacy DO 06/20/2025 01:57 PM EDT
--- OUTSIDE RECORDS SUMMARY | 2025-06-15 14:12 | XMS_ITS | Encounter Summary ---
Author Organization [employer] Address [address] [facility] [address] [place] [address] Care Team Providers Care Jukebox Routeman Name Role Phone Charlotte Dickens MD Primary Care Provider [phone] Alex Ruby RN Unavailable [phone] Lubna Telles Unavailable Antonietta Reid PharmD Unavailable [phone] Encounter Details Date Type Department Care Team (Late st Contact Info) Description 05/23/2025 Orders Only [facility] [address] [place], [place] [phone] Charlotte Dickens MD [address] [place], [place] [phone] Type 2 diabetes mellitus without complication, without long-term current use of insulin ([facility]) Social History Tobacco Use Types Packs/Day Years [...] as of this encounter Plan of Treatment Upcoming Encounters Date Type Department Care Team (Late st Contact Info) Description 06/20/2025 2:00 PM EDT Medication Management [facility] [address] [place] [address] Antonietta Reid PharmD [address] [place] [address] documented as of this encounter Visit Diagnoses Diagnosis Type 2 diabetes mellitus without complication, without long-term current use of insulin ([facility]) documented in this encounter Additional Health Concerns Assessment Noted Time PHQ-9 Depression Total Score: 0 04/12/20 24 2:57 PM EDT documented as of this encounter Care Teams Jukebox Routeman Relationship Specialty Start Date End Date Charlotte Dickens MD [address] [place] [address] PCP - General Family Medicine 05/19/14 Alex Ruby, RN [address] [place] [id number] Registered Nurse Family Medicine 04/27/25 Lubna Telles 04/27/25 Antonietta Reid, PharmD [address] [place] [phone] Pharmacist Pharmacy 05/24/25 documented as of this encounter
== END 2025-06-15 13:20 | disposition home or self-care (01) ==
LOC: HO.MAMMO 13:19
PROVIDERS: PCP Family Medicine; Visit Provider Family Medicine
DX: Z12.31 Encounter for screening mammogram for malignant neoplasm of breast (principal)
CPT/HCPCS: 77063; 77067

== ENCOUNTER → 2025-06-15 14:00 | Outpatient (BNV) | payer MEDICAID, SELFPAY | PROVIDERS: PCP Family Medicine; Visit Provider Internal Medicine | DX: Z12.31 Encounter for screening mammogram for malignant neoplasm of breast (principal) | CPT/HCPCS: 77063; 77067 ==

== ENCOUNTER 2025-07-17 17:40 | Outpatient (REF) | payer MEDICAID, SELFPAY ==
--- OUTSIDE RECORDS SUMMARY | 2025-07-17 13:15 | XMS_ITS | Encounter Summary ---
Author Organization [facility] Address [address] [facility] 7t [place] [address] Care Team Providers Care Director Of Pulmonary Unit Name Role Phone Charlotte Dickens MD Primary Care Provider [phone] Alex Ruby RN Unavailable [phone] Lubna Telles Unavailable Antonietta Reid PharmD Unavailable Encounter Details Date Type Department Care Team (Late st Contact Info) Description 07/17/2025 1:15 PM EDT Office Visit [facility] MEDICINE [address] [place], [place] [phone] Charlotte Dickens MD [address] [place], [place] [phone] Hypertension, unspecified type (Primary Dx); Dyslipidemia; Type 2 diabetes mellitus without complication, without long-term current use of insulin (CMS/[facility]); NE (obstructive sleep apnea); Moderate persistent asthma without complication; Dysuria; Encounter for immunization Social History Tobacco Use Types Packs/Day Years Used Date Smoking Tobacco: Never Passive Smoke Exposure: Never Smokeless Tobacco: Never Depression Answer Date Recorded Patient Health Questionnaire-9 Score 7 06/23/2025 Patient Health Questionnaire-9 Score 7 06/23/2025 Last PHQ-9: Questionnaire Data Not on file 0 06/23/2025 Housing Stability Answer Date Recorded What is your housing situation today? I have shaye betancourt 11/28/[address] you [...] things needed for daily living? No 11/28/2024 Intimate Partner Violence Answer Date R ecorded Within the last year, have y ou been afraid of your partner or ex-partner? 2 06/23/2025 Within the last year, have y ou been humiliated or emotionally abused in other ways by your partner or ex-partner? 2 Within the last year, have y ou been kicked, hit, slapped, or otherwise physically hurt by your partner or ex-partner? 2 06/23/2025 Within the last year, have y ou been raped or forced to have any kind of sexual activity by your partner or ex-partner? 2 06/23/2025 Utilities Answer Date Recorded In the past 12 months, has t he [employer], gas, oil or water [employer] threatened to shut off services in your home? No 11/28/2024 Depression Answer Date Recorded Patient Health Questionnaire-2 Score 2 06/23/2025 Internet Access Answer Date Recorded Internet Access Q1 Yes 11/28/2024 Internet Access Q2 Not on file 11/28/2024 Comments No Sex and Gender Information Value Date Recorded Sex Assigned at Female 09/01/2022 10:17 AM EDT Legal Sex Female 10:17 AM EDT Gender Identity Female 09/01/2022 10:17 AM EDT Sexual Orientation Choose not to disclose 2021 10:17 AM EDT documented as of this encounter Last Filed Vital Signs Vital Sign Reading Time Taken Comments Blood Pressure 132/84 07/17/2025 1:41 PM EDT Pulse 95 07/17/2025 1:25 PM EDT Temperature 36 C (96.8 F) 07/17/2025 1:25 PM EDT Respiratory Rate 16 07/17/2025 1:25 PM EDT Oxygen Saturation 98% 07/17/2025 1:25 PM EDT Inhaled Oxygen Concentration - - Weight 97.8 kg (215 lb 9.6 oz) 07/17/2025 1:25 P M EDT Height 162.6 cm (5' 4 ) 07/17/2025 1:25 PM EDT Body Mass Index 37.01 07/17/2025 1:25 PM EDT documented in this encounter Miscellaneous Notes * Assessment & Plan Note - Charlotte Dickens MD - 07/17/2025 5:49 AM EDTAssociated Problem(s): Asthma -[employer] Generator: Dr. Catherine, last seen in Nov 2023 -Most recent exacerbation on 03/03/24, seen in [facility]. Treated with prednisone burst. -01/26/24 treated with prednisone burst, patient had exacerbation on 12/08/23 and 11/26/23, treated with prednisone burst -Frequency of exacerbation 1 -2 x / mo for last 6 months -Continue Advair to 500/50 one puff bid. -Continue Singulair 10 mg qhs. -Continue albuterol HFA/neb prn. -pt's symptoms improve better with a nebulizer treatment. Nebulizer was prescribed. * Assessment & Plan Note - Charlotte Dickens MD - 07/17/2025 5:49 AM EDTAssociated Problem(s): NE (obstructive sleep apnea) - Her symptoms may be due to NE - Consider evaluating with sleep study * Assessment & Plan Note - Charlotte Dickens MD - 07/17/2025 5:44 AM EDTAssociated Problem(s): Diabetes mellitus, type 2 (CMS/HCC) - Dx Dec 2023, RBG 300, patient had just completed prednisone burst - Hgb A1C 7.1% on 07/17/25, improved from 15.0% on 04/17/25 - Continue working on lifestyle modifications - Continue checking glucose once a day - Continue metformin ER 1000 mg bid - Stat long-acting insulin, Tresiba, 10 units daily - Start tirzepatide 2.5 mg nightly - Microalbumin test: 12/07/23 UACR 17 - Last lipid profile 04/17/25, TRIG 186, TC 203, LDL 122, HDL 44 - Diabetic eye exam: 02/17/24 [facility] Eye care. No retinopathy - Foot exam: April 2025 * Assessment & Plan Note - Charlotte Dickesn MD - 07/17/2025 5:43 AM EDTAssociated Problem(s): Dyslipidemia - last lipid profile 04/17/25, TRIG 186, TC 203, LDL 122, HDL 44 - continue atorvastatin 10 mg at bedtime, improve adherence - Continue working on lifestyle modification * Assessment & Plan Note - Charlotte Dickens MD - 07/17/2025 5:43 AM EDTAssociated Problem(s): Hypertension -Goal BP < 130/80 per ACC/AHA guideline -Treatment Hx: Started on hydrochlorothiazide in May 2019, but it was discontinued since she was prescribed furosemide by another provider in 2020. Lisinopril added in Aug 2022, which was changed tolosartan in Dec 2023 due to patient's non-adherence. . - Continue furosemide 40 mg daily - Continue losartan 25 mg daily -Continue working on lifestyle modifications -Return for BP check in 2 weeks. If home SBP > 130, or office documented in this encounter Plan of Treatment Upcoming Encounters Date Type Department Care Team (Late st Contact Info) Description 07/18/2025 11:30 AM EDT Medication Management [facility] MEDICINE [address] [place] [address] Antonietta Reid, PharmD [address] [place] [address] Scheduled Orders Name Type Priority Associated Diagnoses Orde r Schedule Culture, Urine, Routine Microbiology Routine Dysuria Expected: 07/17/2025 (Approximate), Expires: 07/17/2026 documented as of this encounter Procedures Procedure Name Priority Date/Time Associated Diagnosis Comments POCT URINALYSIS DIPSTICK Routine 07/17/2025 1:53 PM EDT Dysuria POCT GLYCOSYLATED HEMOGLOBIN (HGB A1C) Routine 07/17/2025 1:29 PM EDT Type 2 diabetes mellitus without complication, without long-term current use of insulin ([facility]) POCT GLUCOSE Routine 07/17/2025 1:27 PM EDT Type 2 diabetes mellitus without complication, without long-term current use of insulin ([facility]) documented in this encounter Results * POCT urinalysis dipstick manually resulted (07/17/2025 1:53 PM EDT) Color, UA Yellow Clarity, UA Clear Glucose, UA Negative Bilirubin, UA Negative Ketones, UA Negative Spec Grav, UA 1.025 Blood, UA Negative Negative, None Detected pH, UA 6.0 Protein, UA Negative Urobilinogen, UA 0.2 Leukocytes, UA Trace Negative, Rare, Trace Nitrite, UA Negative Negative, None Detected Appearance, UA clear QC Media Lot # [id number] Lot# Expiration Date [id number] Urine 07/17/2025 1:53 PM EDT Charlotte Dickens MD POINT OF CARE TEST ENTER/EDIT OR DERABLES Final Result * (ABNORMAL) POCT glycosylated hemoglobin (Hgb A1c) (07/17/2025 1:29 PM EDT) Hemoglobin A1C 7.1(A) 4.0 - 5.7 % QC Media Lot # [id number] Lot# Expiration Date [id number] Blood Capillary blood specimen / Unknown 07/17/2025 1:29 PM EDT Charlotte Dickens MD POINT OF CARE TEST ENTER/EDIT OR DERABLES Final Result * POCT glucose manually resulted (07/17/2025 1:27 PM EDT) Glucose Blood, POC 134 60 - 200 mg/dL QC Media Lot # [id number] Lot# Expiration Date [id number] Blood Capillary blood specimen / Unknown 07/17/2025 1:27 PM EDT Charlotte Dickens MD POINT OF CARE TEST ENTER/EDIT OR DERABLES Final Result documented in this encounter Visit Diagnoses Diagnosis Hypertension, unspecified type- Primary Dyslipidemia Other and unspecified hyperlipidemia Type 2 diabetes mellitus without complication, without long-term current use of insulin ([facility]) NE (obstructive sleep apnea) Obstructive sleep apnea (adult) (pediatric) Moderate persistent asthma without complication Dysuria Encounter for immunization documented in this encounter Additional Health Concerns Assessment Noted Time PHQ-9 Depression Total Score: 7 06/23/20 25 2:13 PM EDT documented as of this encounter Care Teams Director Of Pulmonary Unit Relationship Specialty Start Date End Date Charlotte Dickens MD [address] [place] [address] PCP - General Family Medicine 05/19/14 Alex Ruby, RN [address] [place] [phone] Registered Nurse Family Medicine 04/27/25 Lubna Telles 04/27/25 Antonietta Reid, PolyD [address] [place] [address] Pharmacist Pharmacy 05/24/25 documented as of this encounter
--- OUTSIDE RECORDS SUMMARY | 2025-07-17 21:43 | XMS_ITS | Encounter Summary ---
Author Organization [facility] Address [address] [facility] 7t [place] [address] Care Team Providers Care Quality Measurement Specialist Name Role Phone Charlotte Dickens MD Primary Care Provider [phone] Alex Ruby RN Unavailable [phone] Lubna Telles Unavailable Antonietta Reid PharmD Unavailable [phone] Reason for Visit * Reason Onset Date Comments Appointment Request 11/03/2023 Encounter Details Date Type Department Care Team (Late st Contact Info) Description 11/03/2023 Telephone [facility] MEDICINE [address] [place], [place] [phone] Charlotte Dickens MD [address] [place], [place] [phone] Appointment Request Social History Tobacco Use Types Packs/Day Years Used Date Smoking Tobacco: Never Passive Smoke Exposure: Never Smokeless Tobacco: Never Depression Answer Date Recorded Patient Health Questionnaire-9 Score 0 04/27/2023 Housing Stability Answer Date Recorded What is your housing situation today? I have shaye betancourt 08/19/[address] you li ve. Do you have problems with any of the following? None of the above 08/19/2023 Food Insecurity Answer Date Recorded Within the past 12 months, y ou worried that your food would run out before you got money to buy more: Never True 08/19/2023 Within the past 12 months,th e food you bought just didn't last and you didn't have enough money to get more: Never True Transportation Answer Date Recorded In the past 12 months, has l ack of transportation kept you from medical appts, meetings, work or from getting things needed for daily living? No 08/19/2023 Utilities Answer Date Recorded In the past 12 months, has t he electric, gas, oil or water company threatened to shut off services in your home? No 08/19/2023 Depression Answer Date Recorded Patient Health Questionnaire-2 Score 0 04/27/2023 Comments Unknown Sex and Gender Information Value Date Recorded Sex Assigned at Female 09/01/2022 10:17 AM EDT Legal Sex Female 10:17 AM EDT Gender Identity Female 09/01/2022 10:17 AM EDT Sexual Orientation Choose not to disclose 2021 10:17 AM EDT documented as of this encounter Miscellaneous Notes * Telephone Encounter - Earlene Galvez - 11/03/2023 1:44 PM EST Tc from pt requesting an appt with provider. States provider advice this. Please contact Pt @ [phone] documented in this encounter Plan of Treatment Upcoming Encounters Date Type Department Care Team (Late st Contact Info) Description 07/18/2025 11:30 AM EDT Medication Management [facility] MEDICINE [address] [place] [address] Antonietta Reid, PharmD [address] [place] [address] documented as of this encounter Visit Diagnoses Not on filedocumented in this encounter Additional Health Concerns Assessment Noted Time PHQ-9 Depression Total Score: 0 04/27/20 23 3:33 PM EDT documented as of this encounter Care Teams Quality Measurement Specialist Relationship Specialty Start Date End Date Charlotte Dickens MD [address] [place] [address] PCP - General Family Medicine 05/19/14 Alex Ruby, RICHIE [address] [place] [phone] Registered Nurse Family Medicine 04/27/25 Lubna Telles 04/27/25 Antonietta Reid, PharmD [address] [place] [phone] Pharmacist Pharmacy 05/24/25 documented as of this encounter
--- OUTSIDE RECORDS SUMMARY | 2025-07-17 21:43 | XMS_ITS | Encounter Summary ---
Author Organization [employer] Address [address] [facility] 7t [place] [address] Care Team Providers Care Scaleman Name Role Phone Charlotte Dickens MD Primary Care Provider [phone] Alex Ruby RN Unavailable [phone] Lubna Telles Unavailable Antonietta Reid PharmD Unavailable [phone] Reason for Visit * Reason Comments Care Management C3- Initial assess ment/enrollment Encounter Details Date Type Department Care Team (Late st Contact Info) Description 06/22/2025 Patient Outreach [facility] MEDICINE [address] [place], [place] [phone] Charlotte Dickens MD [address] [place], [place] [phone] Care Management (C3CM- Initial assessment/enrollmen t) Social History Tobacco Use Types Packs/Day Years [...] the past 12 months, has t he [employer], gas, oil or water company threatened to [...] AM EDT documented as of this encounter Functional Status * Over the past 2 weeks, how often have you been bothered by any of the following problems? Question Answer Date of Assessment Author Patient Health Questionnaire-2 Score 2 06/03 2:13 PM EDT Alex Ruby RN * Little interest or pleasure in doing things Answer Date of Assessment Author Several days 06/23/2025 2:13 PM EDT Alex Ruyb RN * Feeling down, depressed, or hopeless Answer Date of Assessment Author Several days 06/23/2025 2:13 PM EDT Ruby, Alex, RN * Trouble falling or staying asleep, or sleeping too much Answer Date of Assessment Author Several days 06/23/2025 2:13 PM EDT Alex Ruby RN * Feeling tired or having little energy Answer Date of Assessment Author Several days 06/23/2025 2:13 PM ELVIRAT Alex Ruby RN * Poor appetite or overeating Answer Date of Assessment Author Several days 06/23/2025 2:13 PM EDT Alex Ruby RN * Feeling bad about yourself - or that you are a failure or have let yourself or your family down Answer Date of Assessment Author Several days 06/23/2025 2:13 PM Alex Sanabria RN * Trouble concentrating on things, such as reading the newspaper or watching television Answer Date of Assessment Author Several days 06/23/2025 2:13 PM Alex Sanabria RN * Moving or speaking so slowly that other people could have noticed? Or the opposite - being so fidgety or restless that you have been moving around a lot more than usual. Answer Date of Assessment Author Not at all 06/23/2025 2:13 PM Alex Sanabria RN * Thoughts that you would be better off or hurting yourself in some way Answer Date of Assessment Author Not at all 06/23/2025 2:13 PM Alex Sanabria RN * Patient Health Questionnaire-9 Score Answer Date of Assessment Author 7 06/23/2025 2:13 PM Alex Sanabria RN * How difficult have these problems made it for you to do your work, take care of things at home, or get along with other people? Answer Date of Assessment Author Somewhat difficult 06/23/2025 2:13 PM EDT Alex Westfall do, RN * Over the last 2 weeks, how often have you been bothered by any of the following problems? Question Answer Date of Assessment Author Feeling nervous, anxious, or on edge 1 06/03 2:10 PM EDT Alex Ruby RN Not being able to stop or co ntrol worrying 0 06/23/2025 2:10 PM EDT Alex Ruby R N Worrying too much about diff erent things 2 06/23/2025 2:10 PM EDT Alex Ruby R N Trouble relaxing 1 06/23/2025 2:10 PM EDT Alex Nunez RN Being so restless that it is hard to sit still 0 06/23/2025 2:10 PM EDT Alex Ruby R N Becoming easily annoyed or irritable 0 06/03 2:10 PM EDT Alex Ruby RN Feeling afraid as if somethi ng awful might happen 0 06/23/2025 2:10 PM EDT Alex Ruby R N AQUILES-7 Total Score 4 06/23/2025 2:10 PM EDT Alex Ruby RN * Suicidal Ideation Question Answer Date of Assessment Author 1. Wish to be (Lifetime) No 06/23/2025 2:09 PM EDT Alex Ruby RN 2. Non-Specific Active Suici elaine Thoughts (Lifetime) No 06/23/2025 2:09 PM EDT Alex Ruby R N documented as of this encounter Progress Notes * Alex Ruby RN - 06/22/2025 10:22 AM EDT MONSERRAT Ruby RN placed outbound call to patient for agreed upon time for initial assessment forenrollment into Adult Care Management Program. Patient's name, , and address were verified. Jacqui Russo is a 59 y.o. Niuean speaking female with prior medical history of anxiety, depression, migraine, asthma, HTN, obesity, GERD, hx of hep C, T2DM, dyslipidemia, vertigo, constipation, NE, solitary kidney congenital. Patient reports that she is able to read/write in Niuean and last grade completed was high school. Patient reports having the following specialist: [facility] pharmacy CDTM, [facility] Urology, [facility] Pulmonology, [facility] optometry, [facility] GI. Patient has the following upcoming appointments: [facility] pharmacy CDTM appointment on 06/27/25 @ 11:30 AM, [facility] urology appointment on 07/05/25 @ 1 PM, [facility] physical on 07/17/25 @ 1:15 PM, [facility] GI on 09/11/25 @ 1 PM. Patient denies any hearing concerns. Patient reports blurry vision when not wearing her glasses but improves when she has them on. Patient reports that her last eye test was last year but in reality it was 2 years ago. Patient reports that the [facility] eye care center doesn't have appointment availability until Nov 2025 so Marizol from the [facility] pharmacyis helping her find an optometry office that would be able to see her sooner. Patient denies any dental concerns and reports that she goes to the dentist regularly. Patient state that she last visited the dentist 6 months ago. Patient denies any recent ED/hospitalization. Patient reports that she li ves in an apartment with her son. Patient states her utilities are up to date. Patient reports thatshe receives SNAP benefits. Patient reports that she receives SSI. Patient reports that her son brings her to her medical appointments. Patient reports that she has internet in her home. Patient reports having the following DME: cane, BP home monitor machine, blood glucose monitoring device, and nebulizer. Patient reports that she follows a low sodium and sugar diet. Patient reports that for exercise she walks. Patient reports that she takes vitamins. Patient denied any weight concerns. Patientreports she monitors her BP once daily and her blood sugar 3 x a day. Patient reports bone pain. Duration: 2 + years. Patient states that pain has gotten progressively worse. Patient reports that shetakes pain medication. Patient reports that she does not have a therapist or psychiatrist. Patient denies any SI/HI. Patient reports that she does have crisis #. CM offered to assist in connectingher with services, patient declined and states she was not interested. Patient reports that she feels emotionally and physically safe at home. Patient denies drinking, smoking or any illegal drugs. Patient denies receiving VNA or [employer] TECH[employer]IC[employer] services. Patient reports that some days he has difficulty standing up from bed. Patient reports that he can't walk or stand for a long period of time. Patient reports that her son is very supportive and helps her as needed. Patient reports that her son helps with appointment reminders, transportation, ADL's, etc. CM will send patient of list of [employer]OLOGICAL TECH[employer]ICAL [employer]IC[employer] company. Patient reports compliance to her medications and denies any side effects at the moment. Patient reports that she has yet received the Mounjaro. Patient scored a 7 on the PHQ9 depression screening and a 4 on the GAD7 anxiety screening. Patient reports to help with her depression and anxiety she likesto walk or going window shopping. Patient has no other concerns and no goals at this time. Care management program explained and contact information given. Patient verbalizes understanding, and able to repeat back to principal technical writer. A follow up call will be placed within 10 days, patient agrees with plan. documented in this encounter Plan of Treatment Upcoming Encounters Date Type Department Care Team (Late st Contact Info) Description 07/18/2025 11:30 AM EDT Medication Management [facility] MEDICINE [address] [place] [phone] Antonietta Reid PharmD [address] [place] [phone] documented as of this encounter Visit Diagnoses Not on filedocumented in this encounter Additional Health Concerns Assessment Noted Time PHQ-9 Depression Total Score: 7 06/23/20 2:13 PM EDT documented as of this encounter Care Teams Scaleman Relationship Specialty Start Date End Date Charlotte Dickens MD [address] [place] [phone] PCP - General Family Medicine 05/19/14 Alex Ruby RN [address] [place] [phone] Registered Nurse Family Medicine 04/27/25 Lubna Telles 04/27/25 Antonietta Reid, Mary Anne [address] [place] [phone] Pharmacist Pharmacy 05/24/25 documented as of this encounter
--- OUTSIDE RECORDS SUMMARY | 2025-07-17 21:43 | XMS_ITS | Encounter Summary ---
Author Organization [employer] Address [address] [facility] 7t [place] [address] Care Team Providers Care Senior Label Specialist Name Role Phone Charlotte Dickens MD Primary Care Provider [phone] Alex Ruby RN Unavailable [phone] Lubna Telles Unavailable Antonietta Reid PharmD Unavailable [phone] Reason for Referral * Imaging (Routine) - Closed Specialty Diagnoses / Procedures Referred By Inez elias Referred To Contact Radiology Diagnoses Elevated AFP Transaminitis Procedures US Abdomen Complete Charlotte Dickens MD [address] [place] [address] Phone: tel: fax: [address] Phone: tel: fax: Referral ID Status Reason Start Date Expiration Date Visits Re quested Visits Authorized [id number] Closed 04/29/2023 04/28/2024 1 1 Encounter Details Date Type Department Care Team (Late st Contact Info) Description 04/29/2023 Orders Only [facility] MEDICINE [address] [place] [address] [phone] Charlotte Dickens MD [address] [place], [place] [phone] Elevated AFP (Primary Dx); Transaminitis Social History Tobacco Use Types Packs/Day Years Used Date Smoking Tobacco: Never Passive Smoke Exposure: Never Smokeless Tobacco: Never Depression Answer Date Recorded Patient Health Questionnaire-9 Score 0 04/27/2023 Depression Answer Date Recorded Patient Health Questionnaire-2 Score 0 04/27/2023 Comments Unknown Sex and Gender Information Value Date Recorded Sex Assigned at Female 09/01/2022 10:17 AM EDT Legal Sex Female 10:17 AM EDT Gender Identity Female 09/01/2022 10:17 AM EDT Sexual Orientation Choose not to disclose 2021 10:17 AM EDT COVID-19 Exposure Response Date Recorded In the last 10 days, have yo u been in contact with someone who was confirmed or suspected to have Coronavirus/COVID-19? No / Unsure 04/27/2023 2:58 PM EDT documented as of this encounter Plan of Treatment Upcoming Encounters Date Type Department Care Team (Late st Contact Info) Description 07/18/2025 11:30 AM EDT Medication Management [facility] MEDICINE [address] [place] [address] Antonietta Reid, PharmD [address] [place] [address] Scheduled Orders Name Type Priority Associated Diagnoses Orde r Schedule US Abdomen Complete Imaging Routine Elevated AFP Transaminitis Expected: 04/29/2023, Expires: 04/29/2024 documented as of this encounter Visit Diagnoses Diagnosis Elevated AFP- Primary Other nonspecific findings on examination of blood Transaminitis Nonspecific elevation of levels of transaminase or lactic acid dehydrogenase (LDH) documented in this encounter Additional Health Concerns Assessment Noted Time PHQ-9 Depression Total Score: 0 04/27/20 23 3:33 PM EDT documented as of this encounter Care Teams Senior Label Specialist Relationship Specialty Start Date End Date Charlotte Dickens MD [address] [place] [address] PCP - General Family Medicine 05/19/14 Alex Ruby, RICHIE [address] [place] [address] Registered Nurse Family Medicine 04/27/25 Lubna Telles 04/27/25 Antonietta Reid, PharmD [address] [place] [address] Pharmacist Pharmacy 05/24/25 documented as of this encounter
--- OUTSIDE RECORDS SUMMARY | 2025-07-17 21:43 | XMS_ITS | Encounter Summary ---
Author Organization [employer] Address [address] [facility] 7t [place] [address] Care Team Providers Care Shopper Name Role Phone Charlotte Dickens MD Primary Care Provider [phone] Alex Ruby RN Unavailable [phone] Lubna Telles Unavailable Antonietta Reid PharmD Unavailable [phone] Reason for Visit * Reason Onset Date Comments CHART PREP 07/14/2025 Encounter Details Date Type Department Care Team (Late st Contact Info) Description 07/14/2025 Telephone [facility] MEDICINE [address] [place], [place] [phone] Charlotte Dickens MD [address] [place], [place] [phone] CHART PREP Social History Tobacco Use Types Packs/Day Years [...] encounter Miscellaneous Notes * Telephone Encounter - Dari Elizabeth MA - 07/14/2025 2:57 PM EDT Chart Prep Labs: done Images: done MAMMO 06/15/25 Referrals: not applicable Vaccines due: Covid, Flu, and PCV20 Screenings: colonoscopy and eye exam Overdue care gaps: A1c, Glucose, and SBIRT documented in this encounter Plan of Treatment Upcoming Encounters Date Type Department Care Team (Late st Contact Info) Description 07/18/2025 11:30 AM EDT Medication Management [facility] MEDICINE [address] [place] [address] Antonietta Reid, Mary Anne [address] [place] [address] documented as of this encounter Visit Diagnoses Not on filedocumented in this encounter Additional Health Concerns Assessment Noted Time PHQ-9 Depression Total Score: 7 06/23/20 2:13 PM EDT documented as of this encounter Care Teams Shopper Relationship Specialty Start Date End Date Charlotte Dickens MD [address] [place] [address] PCP - General Family Medicine 05/19/14 Alex Ruby, RN [address] [place] [address] Registered Nurse Family Medicine 04/27/25 Lubna Telles 04/27/25 Antonietta Reid, PharmD [address] [place] [address] Pharmacist Pharmacy 05/24/25 documented as of this encounter
--- OUTSIDE RECORDS SUMMARY | 2025-07-17 21:43 | XMS_ITS | Encounter Summary ---
Author Organization [employer] Address [address] [facility] 7t [place] [address] Care Team Providers Care Roller Stainer Name Role Phone Charlotte Dickens MD Primary Care Provider [phone] Alex Ruby RN Unavailable [phone] Lubna Telles Unavailable Antonietta Reid PharmD Unavailable [phone] Encounter Details Date Type Department Care Team (Latest Contact Info) Description 07/17/2025 Travel Social History Tobacco Use Types Packs/Day Years [...] the past 12 months, has t he [employer], gas, oil or water [employer] threatened to shut off services in your [...] Upcoming Encounters Date Type Department Care Team ([facility] st Contact Info) Description 07/18/2025 11:30 AM EDT Medication Management [facility] MEDICINE [address] [place] [address] Antonietta Reid, PharmD [address] [place] [address] documented as of this encounter Visit Diagnoses Not on filedocumented in this encounter Additional Health Concerns Assessment Noted Time PHQ-9 Depression Total Score: 7 06/23/20 25 2:13 PM EDT documented as of this encounter Care Teams Roller Stainer Relationship Specialty Start Date End Date Charlotte Dickens MD [address] [place] [address] PCP - General Family Medicine 05/19/14 Alex Ruby RN [address] [place] [address] Registered Nurse Family Medicine 04/27/25 Lubna Telles 04/27/25 Antonietta Reid, PharmD [address] [place] [address] Pharmacist Pharmacy 05/24/25 documented as of this encounter
--- OUTSIDE RECORDS SUMMARY | 2025-07-17 21:43 | XMS_ITS | Encounter Summary ---
Author Organization [employer] Address [address] [facility] 7t [place] [address] Care Team Providers Care Aesthetics Instructor Name Role Phone Charlotte Dickens MD Primary Care Provider [phone] Alex Ruby RN Unavailable [phone] Lubna Telles Unavailable Antonietta Reid PharmD Unavailable [phone] Reason for Visit * Reason Comments Med Refill Encounter Details Date Type Department Care Team (Late st Contact Info) Description 12/23/2024 Refill [facility] [address] [place], [place] [phone] Chas Angel MD [address] [place], [place] [phone] Vertigo Social History Tobacco Use Types Packs/Day [...] Description 07/18/2025 11:30 AM EDT Medication Management [facility] MEDICINE [address] [place] [address] Antonietta Reid, PharmD [address] [place] [address] documented as of this encounter Visit Diagnoses Diagnosis Vertigo Dizziness and giddiness documented in this encounter Additional Health Concerns Assessment Noted Time PHQ-9 Depression Total Score: 0 04/12/20 24 2:57 PM EDT documented as of this encounter Care Teams Aesthetics Instructor Relationship Specialty Start Date End Date Charlotte Dickens MD [address] [place] [address] PCP - General Family Medicine 05/19/14 Alex Ruby, RN [address] [place] [address] Registered Nurse Family Medicine 04/27/25 Lubna Telles 04/27/25 Antonietta Reid, PharmD [address] [place] [address] Pharmacist Pharmacy 05/24/25 documented as of this encounter
--- OUTSIDE RECORDS SUMMARY | 2025-07-17 21:43 | XMS_ITS | Encounter Summary ---
Author Organization [employer] Address [address] [facility] 7t [place] [address] Care Team Providers Care Spray Machine Tender Name Role Phone Charlotte Dickens MD Primary Care Provider [phone] Alex Ruby RN Unavailable [phone] Lubna Telles Unavailable Antonietta Reid PharmD Unavailable [phone] Reason for Visit * Reason Onset Date Comments Appointment Request 07/11/2025 Encounter Details Date Type Department Care Team (Late st Contact Info) Description 07/11/2025 Telephone [facility] MEDICINE [address] [place], [place] [phone] Charlotte Dickens MD [address] [place], [place] [phone] Appointment Request Social History Tobacco Use Types [...] encounter Miscellaneous Notes * Telephone Encounter - Devi Grullon - 07/12/2025 10:05 AM EDT Pharmacy [facility] attempted outreach call on 07/12/25 for CDTM - Diabetes appointment; however, unable to reach patient. LVM for patient to contact Devi Grullon at [phone]. * Telephone Encounter - Joey Pendleton - 07/11/2025 4:16 PM EDT Tc from pt requesting to reschedule CDTM visit. Please contact pt at [phone]. ([place] Speaker) documented in this encounter Plan of Treatment Upcoming Encounters Date Type Department Care Team (Late st Contact Info) Description 07/18/2025 11:30 AM EDT Medication Management [facility] MEDICINE [address] [place] [address] Antonietta Reid PharmD [address] [place] [address] documented as of this encounter Visit Diagnoses Not on filedocumented in this encounter Additional Health Concerns Assessment Noted Time PHQ-9 Depression Total Score: 7 06/23/20 2:13 PM EDT documented as of this encounter Care Teams Spray Machine Tender Relationship Specialty Start Date End Date Charlotte Dickens MD [address] [place] [address] PCP - General Family Medicine 05/19/14 Alex Ruby RN [address] [place] [address] Registered Nurse Family Medicine 04/27/25 Lubna Telles 04/27/25 Antonietta Reid, Mary Anne [address] [place] [address] Pharmacist Pharmacy 05/24/25 documented as of this encounter
--- OUTSIDE RECORDS SUMMARY | 2025-07-17 21:43 | XMS_ITS | Encounter Summary ---
Author Organization [employer] Address [address] [facility] 7t [place] [address] Care Team Providers Care Employment Attorney Name Role Phone Charlotte Dickens MD Primary Care Provider [phone] Alex Ruby RN Unavailable [phone] Lubna Telles Unavailable Antonietta Reid PharmD Unavailable [phone] Encounter Details Date Type Department Care Team (Late st Contact Info) Description 05/23/2025 Orders Only [facility] MEDICINE [address] [place], [place] [phone] Charlotte Dickens MD [address] [place], [place] [phone] Type 2 diabetes mellitus without complication, without long-term current use of insulin ([facility]) Social History Tobacco Use Types Packs/Day Years [...] Description 07/18/2025 11:30 AM EDT Medication Management [facility] MEDICINE [address] [place] [address] Antonietta Reid PharmD [address] [place] [address] documented as of this encounter Visit Diagnoses Diagnosis Type 2 diabetes mellitus without complication, without long-term current use of insulin ([facility]) documented in this encounter Additional Health Concerns Assessment Noted Time PHQ-9 Depression Total Score: 0 04/12/20 24 2:57 PM EDT documented as of this encounter Care Teams Employment Attorney Relationship Specialty Start Date End Date Charlotte Dickens MD [address] [place] [address] PCP - General Family Medicine 05/19/14 Alex Ruby, RN [address] [place] [address] Registered Nurse Family Medicine 04/27/25 Lubna Telles 04/27/25 Antonietta Reid, PharmD [address] [place] [address] Pharmacist Pharmacy 05/24/25 documented as of this encounter
--- OUTSIDE RECORDS SUMMARY | 2025-07-17 21:44 | XMS_ITS | Clinical Summary ---
Author Organization [employer] Address [address] [facility] [address] [place] [address] Care Team Providers Care Design Engineering Intern Name Role Phone Charlotte Dickens MD Primary Care Provider [phone] Alex Ruby RN Unavailable [phone] [place] Telles Unavailable Antonietta Reid PharmD Unavailable [phone] Allergies Active Allergy Reactions Criticality Noted Date Comments Nitrofurantoin Nausea And Vomiting 07/02/2017 Other reaction(s): Nausea / Vomiting Side Effects Prochlorperazine 11/24/2022 Other reaction(s): mouth swelling Medications cetirizine (ZyrTEC) 10 MG tablet Take 10 mg by mouth Once per day. 022 Active Advair Diskus 500-50 MCG/ACT aerosol powder 022 Active furosemide (Lasix) 40 MG tablet 023 Active fluticasone (Flonase) 50 MCG/ACT nasal spray Administer 1 spray into each nostril in the morning. 48 g 1 023 Active Acetaminophen Extra Strength 500 MG tablet TAKE 2 TABLETS BY MOUTH EVERY 8 HOURS NEEDED 50 tablet 024 Active atorvastatin (Lipitor) 10 MG tablet Take 1 tablet (10 mg) by mouth Once per day. 90 tablet 3 024 Active montelukast (Singulair) 10 MG tablet Take 1 tablet (10 mg) by mouth at bedtime. 90 tablet 3 024 Active tiZANidine (Zanaflex) 2 MG tablet TAKE 1 TABLET BY MOUTH EVERY 6 HOURS NEEDED FOR MUSCLE SPASMS 30 tablet 024 Active lidocaine (Lidoderm) 5 % patch APPLY 1 PATCH TOPICALLY TO SKIN, LEAVE ON FOR 12 HOURS AND OFF FOR 12 HOURS DIRECTED 30 patch 2 025 Active tiZANidine (Zanaflex) 2 MG tabletIndications :Trapezius strain, right, initial encounter Take 1 tablet (2 mg) by mouth every 6 (six) hours if needed for muscle spasms for up to 7 days. 28 tablet 025 Active TRUEplus Lancets 33G miscIndications:T ype 2 diabetes mellitus without complication, without long-term current use of insulin (CMS/HCC) USE TO TEST BLOOD SUGAR EVERY DAY 100 each 025 Active losartan (Cozaar) 50 MG tabletIndications :Hypertension, unspecified type TAKE 1 TABLET BY MOUTH EVERY MORNING 90 tablet 025 Active FREESTYLE LITE test stripIndications: Type 2 diabetes mellitus without complication, without long-term current use of insulin (CMS/HCC) Check blood glucose 100 each 025 Active Blood Glucose Monitoring Suppl (FreeStyle Lite) w/Device kitIndications:Ty pe 2 diabetes mellitus without complication, without long-term current use of insulin (CMS/HCC) 1 each Once per day. 1 kit 025 Active Tirzepatide (Mounjaro) 2.5 MG/0.5ML solution auto-injectorIndi cations:Type 2 diabetes mellitus without complication, without long-term current use of insulin (CMS/HCC) Inject 2.5 mg under the skin 1 (one) time per week. 2 mL 025 Active insulin glargine (Lantus SoloStar) 100 UNIT/ML penIndications:Ty pe 2 diabetes mellitus without complication, without long-term current use of insulin (CMS/HCC) Inject 10 Units under the skin at bedtime. 15 mL 025 Active FreeStyle lancetsIndication s:Type 2 diabetes mellitus without complication, without long-term current use of insulin (CMS/HCC) 1 each by Other route 3 times daily. 100 each 025 Active Alcohol Swabs (Alcohol Prep) padsIndications:T ype 2 diabetes mellitus without complication, without long-term current use of insulin (CMS/HCC) USE TO TEST BLOOD SUGAR 3 times per day 100 each 3 025 Active BD Pen Needle Noemy Ultrafine 32G X 4 MM misc use as directed 025 Active ondansetron ODT (Zofran-ODT) 4 MG disintegrating tabletIndications :Vertigo DISSOLVE 1 TABLET ON TONGUE EVERY 8 HOURS NEEDED FOR NAUSEA AND VOMITING 20 tablet 1 025 Active meclizine (Antivert) 25 MG tabletIndications :Vertigo TAKE 1 TABLET BY MOUTH EVERY 6 HOURS NEEDED FOR DIZZINESS 30 tablet 1 025 Active metFORMIN XR (Glucophage-XR) 500 MG 24 hr tabletIndications :Type 2 diabetes mellitus without complication, without long-term current use of insulin ([facility]) TAKE 2 TABLETS BY MOUTH TWICE DAILY WITH BREAKFAST AND WITH DINNER, DO NOT BREAK, CRUSH, DISSOLVE OR CHEW 360 tablet 1 025 Active Ventolin HFA 108 (90 Base) MCG/ACT inhaler INHALE 2 PUFFS BY MOUTH EVERY 4 TO 6 HOURS NEEDED FOR DIFFICULTY BREATHING. DO NOT EXCEED FOUR TIMES DAILY. 18 g 3 025 Active Ventolin HFA 108 (90 Base) MCG/ACT inhaler INHALE 2 PUFFS BY MOUTH EVERY 4 TO 6 HOURS NEEDED FOR DIFFICULTY BREATHING, DO NOT EXCEED 4 TIMES / DAY 18 g 3 024 2024 Discontinued meclizine (Antivert) 25 MG tabletIndications :Vertigo Take 1 tablet (25 mg) by mouth every 6 (six) hours if needed for dizziness. 30 tablet 1 024 2024 Discontinued ondansetron ODT (Zofran-ODT) 4 MG disintegrating tabletIndications :Vertigo DISSOLVE 1 TABLET BY MOUTH EVERY 8 HOURS NEEDED FOR NAUSEA AND VOMITING 20 tablet 1 025 2024 Discontinued metFORMIN XR (Glucophage-XR) 500 MG 24 hr tablet TAKE 2 TABLETS BY MOUTH TWICE DAILY WITH BREAKFAST AND WITH DINNER, DO NOT BREAK, CRUSH, DISSOLVE OR CHEW 025 2024 Discontinued(R eorder (will not trigger notification to Pharmacy)) Active Problems Problem Noted Date Diagnosed Date History of recurrent UTI (urinary tract infectio n) 04/26/2025 Assessment & Plan (04/26/2025 9:16 AM EDT): - in a setting of uncontrolled diabetes mellitus and diuretic use - optimize diabetes management - refer back to urologist Throat discomfort 08/18/2024 Assessment & Plan (08/18/2024 1:15 PM EDT): COVID, Strep and Flu negative. On 02/22/2024 pt reported chronic throat discomfort and requested a referral to another ENT. Had referral placed 02/28/24. Has an appt scheduled on 09/09/24. Printed out paper with date of appt. and given paper to remind pt of her appt. 08/18/24 Colon cancer screening 07/20/2024 Constipation 07/20/2024 Dyspnea on exertion 07/20/2024 Environmental allergies 07/20/2024 Left flank pain 07/20/2024 NE (obstructive sleep apnea) 07/20/2024 Assessment & Plan (07/17/2025 5:49 AM EDT): - Her symptoms may be due to NE - Consider evaluating with sleep study Assessment & Plan (04/29/2025 5:42 AM EDT): - Her symptoms may be due to NE - Consider evaluating with sleep study Recurrent sinusitis 07/20/2024 Venous stasis dermatitis 07/20/2024 Vertigo 06/10/2024 Assessment & Plan (06/10/2024 9:07 PM EDT): -CBG 146 today -04/12/2024 Hb1AC 7.6 -03/2024 Hb 11.6 ,chem wnl -EKG today HR 63, QTC 417, no ischemic findings -2020 TTE neg -here Flu and COVID 19 test are neg -orthostatic VS borderline elevated systolic from laying down to standing . HR and diastolic normal Symptoms clinically described as vertigo and [place] -Hallpike maneuver is triggering symptoms , normal neurologic exam -check TSH, CBC,Chem -resume meclizine ,Zofran prn -hydration advised -Alarm signs and symptoms discussed w pt -if ongoing may need to consider MRI brain -warm compress in neck ,tylenol prn -home head excercises explained to pt -apt 07/25/2024 w PCP scheduled already Dyslipidemia 02/28/2024 Assessment & Plan (07/17/2025 5:43 AM EDT): - last lipid profile 04/17/25, TRIG 186, TC 203, LDL 122, HDL 44 - continue atorvastatin 10 mg at bedtime, improve adherence - Continue working on lifestyle modification Assessment & Plan (04/29/2025 5:40 AM EDT): - last lipid profile 04/17/25, TRIG 186, TC 203, LDL 122, HDL 44 - continue atorvastatin 10 mg at bedtime, improve adherence - Continue working on lifestyle modification Assessment & Plan (04/12/2024 6:47 AM EDT): - last lipid profile 12/07/21, LDL 100, HDL 77 - Although her lipid profile seems good, 10-year ASCVD risk is 6.3% and she is in a statin benefit group. - Will start atorvastatin 10 mg qhs Assessment & Plan (02/28/2024 12:14 PM EDT): - last lipid profile 12/07/21, LDL 100, HDL 77 - Although her lipid profile seems good, 10-year ASCVD risk is 6.3% and she is in a statin benefit group. - Will start atorvastatin 10 mg qhs Sore throat 01/26/2024 Candidate for statin therapy due to risk of future cardiovascular event 01/11/2024 Assessment & Plan (01/11/2024 5:41 AM EDT): - lipid profile on 12/07/23 total cholesterol 195; triglyceride 90; LDL 100; HDL 70 Allergic rhinitis 12/09/2023 Assessment & Plan (12/14/2023 1:17 PM EST): - continue following with Dr. Catherine Diabetes mellitus, type 2 12/04/2023 Assessment & Plan (07/17/2025 5:48 PM EDT): - Dx Dec 2023, RBG 300, patient [...] HDL 44 - Diabetic eye exam: 02/17/24 [facility] Eye care. No retinopathy - Foot exam: April 2025 Assessment & Plan (04/29/2025 5:48 AM EDT): - Dx Dec 2023, RBG 300, patient had just completed prednisone burst - Hgb A1C 15.0% on 04/17/25, increase 7.6% on 04/12/24 - Continue working on lifestyle modifications - Continue checking glucose once a day - Continue metformin ER 1000 mg bid - Stat long-acting insulin, Tresiba, 10 units daily - Start tirzepatide 2.5 mg nightly - Microalbumin test: 12/07/23 UACR 17 - Last lipid profile 04/17/25, TRIG 186, TC 203, LDL 122, HDL 44 - Diabetic eye exam: 02/17/24 [facility] Eye care. No retinopathy - Foot exam: April 2025 Follow up in 3 mo Assessment & Plan (04/18/2024 10:06 AM EDT): - Dx Dec 2023, RBG 300, patient had just completed prednisone burst - Hgb A1C 7.6% on 04/12/24 - Continue working on lifestyle modifications - Continue checking glucose once a day - Increase metformin ER 1000 mg bid - Microalbumin test: 12/07/23 UACR 17 - Lipid profile: 12/07/23 total cholesterol 195; triglyceride 90; LDL 100; HDL 70 - Diabetic eye exam: 02/17/24 [facility] Eye care. No retinopathy - Foot exam: 04/12/24 Follow up in 3 mo Assessment & Plan (02/28/2024 12:24 PM EDT): - Dx Dec 2023, RBG 300, patient had just completed prednisone burst - Hgb A1C 7.3% on 12/07/23 - Continue working on lifestyle modifications - Continue checking glucose once a day - Continue metformin ER 500 mg bid - Microalbumin test: 12/07/23 UACR 17 - Lipid profile: 12/07/23 total cholesterol 195; triglyceride 90; LDL 100; HDL 70 - Diabetic eye exam: 02/17/24 [facility] Eye care. No retinopathy - Foot exam: Follow up in 3 mo Assessment & Plan (01/11/2024 5:40 AM EDT): - Dx Dec 2023, RBG 300, patient had just completed prednisone burst - Hgb A1C 7.3% on 12/07/23 - Continue working on lifestyle modifications - Continue checking glucose once a day - Continue metformin ER 500 mg bid - Microalbumin test: 12/07/23 UACR 17 - Lipid profile: 12/07/23 total cholesterol 195; triglyceride 90; LDL 100; HDL 70 - Diabetic eye exam: - Foot exam: Follow up in 3 mo Assessment & Plan (12/14/2023 1:21 PM EST): - Dx Dec 2023, RBG 300, patient had just completed prednisone burst - Hgb A1C 7.3% - Continue working on lifestyle modifications - Continue checking glucose once a day - Start metformin EF 500 mg bid - Microalbumin test: 12/07/23 UACR 17 - Lipid profile: 12/07/23 total cholesterol 195; triglyceride 90; LDL 100; HDL 70 - Diabetic eye exam: - Foot exam: Follow up in 3 mo Assessment & Plan (12/04/2023 4:19 PM EST): - Dx on 12/04/23 Random blood glucose 300 mg/dl Pain and swelling of left lower leg 04/29/2023 Assessment & Plan (04/29/2023 5:26 PM EDT): - evaluate with venous study - low sodium diet; elevated leg - stay physically active History of hepatitis C 04/29/2023 Assessment & Plan (04/19/2025 12:39 PM EDT): - Likely transmitted through transfusion which she received during childbirth -Genotype 1a. - s/p Harvoni in Dec and December 2016 - 08/11/16 Abdominal US No focal liver lesion. Cholelithiasis -09/12/21 US no liver lesion / GB stone and wall thickening - Avoid hepatotoxic substances / drugs / behaviors. - Completed Hep A and B immunization. Assessment & Plan (04/29/2023 5:34 PM EDT): - Likely transmitted through transfusion which she received during childbirth -Genotype 1a. - s/p Harvoni in Dec and December 2016 - 08/11/16 Abdominal US No focal liver lesion. Cholelithiasis -09/12/21 US no liver lesion / GB stone and wall thickening - Avoid hepatotoxic substances / drugs / behaviors. - Completed Hep A and B immunization. Neck swelling 04/29/2023 Assessment & Plan (02/28/2024 12:21 PM EDT): - US in 2021 showed a slightly enlarged left cervical lymph node - evaluated by ENT - both laryngoscopy and biopsy were normal Assessment & Plan (04/29/2023 5:37 PM EDT): - evaluated by ENT - both laryngoscopy and biopsy were normal - upcoming appt for a follow up History of COVID-19 04/29/2023 Assessment & Plan (04/29/2023 9:49 PM EDT): - pt states her current medical problems (neck swelling and pain) started since COVID19 - ?late COVID History of syphilis 12/16/2022 GERD (gastroesophageal reflux disease) 3 Obesity 12/02/2022 Hypertension 11/24/2022 Assessment & Plan (07/17/2025 5:43 AM EDT): -Goal BP < 130/80 per ACC/AHA guideline -Treatment Hx: Started on hydrochlorothiazide in May 2019, but it was discontinued since she was prescribed furosemide by another provider in 2020. Lisinopril added in Aug 2022, which was changed to losartan in Dec 2023 due to patient's non- adherence. . - Continue furosemide 40 mg daily - Continue losartan 25 mg daily -Continue working on lifestyle modifications -Return for BP check in 2 weeks. If home SBP > 130, or office Assessment & Plan (04/26/2025 10:24 AM EDT): -Goal BP < 140/90 per JNC-8 and < 130/80 per ACC/AHA guideline (Treatment threshold >= 140 ) -Treatment Hx: Started on hydrochlorothiazide in May 2019, but it was discontinued since she was prescribed furosemide by another provider in 2020. Lisinopril added in Aug 2022, which was changed to losartan in Dec 2023 due to patient's non- adherence. . - Continue furosemide 40 mg daily - Continue losartan 25 mg daily -Continue working on lifestyle modifications -Return for BP check in 2 weeks. If home SBP > 130, or office Assessment & Plan (04/12/2024 6:46 AM EDT): -Goal BP < 140/90 per JNC-8 and < 130/80 per ACC/AHA guideline (Treatment threshold >= 140 ) -Treatment Hx: Started on hydrochlorothiazide in May 2019, but it was discontinued since she was prescribed furosemide by another provider in 2020. Lisinopril added in Aug 2022, which was changed to losartan in Dec 2023 due to patient's non- adherence. . - Continue furosemide 40 mg daily - Continue losartan 25 mg daily -Continue working on lifestyle modifications -Follow up in 3-6 mo, sooner if any problem arises Assessment & Plan (02/28/2024 12:09 PM EDT): -Goal BP < 140/90 per JNC-8 and < 130/80 per ACC/AHA guideline (Treatment threshold >= 140 ) -Treatment Hx: Started on hydrochlorothiazide in May 2019, but it was discontinued since she was prescribed furosemide by another provider in 2020. Lisinopril added in Aug 2022, which was changed to losartan in Dec 2023 due to patient's non- adherence. . - Continue furosemide 40 mg daily - Continue losartan 25 mg daily -Continue working on lifestyle modifications -Follow up in 3-6 mo, sooner if any problem arises Assessment & Plan (01/26/2024 5:30 PM EDT): Uncontrolled today, it could be related to acute condition No change in meds FU BP with RN in 2-3w Assessment & Plan (01/11/2024 5:38 AM EDT): -Goal BP < 140/90 per JNC-8 and < 130/80 per ACC/AHA guideline (Treatment threshold >= 140 ) -Treatment Hx: Started on hydrochlorothiazide in May 2019, but it was discontinued since she was prescribed furosemide by another provider in 2020. Lisinopril added in Aug 2022. - Continue furosemide 40 mg daily - Continue losartan 25 mg daily - Treatment Hx: Lisinopril was discontinued due to non-adherence and cough. -Continue working on lifestyle modifications -Follow up in 3-6 mo, sooner if any problem arises Assessment & Plan (12/14/2023 1:14 PM EST): -Goal BP < 140/90 per JNC-8 and < 130/80 per ACC/AHA guideline (Treatment threshold >= 140 ) -Treatment Hx: Started on hydrochlorothiazide in May 2019, but it was discontinued since she was prescribed furosemide by another provider in 2020. Lisinopril added in Aug 2022. - Continue furosemide 40 mg daily - Discontinue lisinopril since patient has not been taking it - Add losartan 25 mg daily -Continue working on lifestyle modifications -Follow up in 3-6 mo, sooner if any problem arises Assessment & Plan (04/29/2023 5:26 PM EDT): -Goal BP < 140/90 per JNC-8 and < 130/80 per ACC/AHA guideline (Treatment threshold >= 140 ) -Treatment Hx: Started on hydrochlorothiazide in May 2019, but it was discontinued since she was prescribed furosemide by another provider in 2020. Lisinopril added in Aug 2022. -Continue working on lifestyle modifications -Continue current medications: Furosemide 60 mg daily; lisinopril 10 mg daily -Follow up in 3-6 mo, sooner if any problem arises Assessment & Plan (12/16/2022 3:40 AM EST): -Goal BP < 140/90 per JNC-8 and < 130/80 per ACC/AHA guideline (Treatment threshold >= 140 ) -Treatment Hx: Started on hydrochlorothiazide in May 2019, but it was discontinued since she was prescribed furosemide by another provider in 2020. Lisinopril added in Aug 2022. -Continue working on lifestyle modifications -Continue current medications: Furosemide 60 mg daily; lisinopril 10 mg daily -Follow up in 3-6 mo, sooner if any problem arises Solitary kidney, congenital 10/31/2022 Assessment & Plan (04/26/2025 9:16 AM EDT): - right kidney only Vitamin D deficiency 03/31/2018 Elevated AFP 03/31/2018 Assessment & Plan (12/14/2023 1:17 PM EST): Hx Hep C s/p Tx 06/10/19 Abd US 1. Slightly echogenic heterogeneous liver echotexture suggestive of hepatocellular disease. No focal liver lesion seen. Wall echo shadow complex suggestive of a gallbladder filled with gallstones. 2. Elastography: Metavir score F2 to F3 suggestive of [id number] risk of developing liver fibrosis. 09/12/21 US no liver lesion Evaluated by [facility], last seen in Dec 2023 Assessment & Plan (04/29/2023 5:34 PM EDT): Hx Hep C s/p Tx 06/10/19 Abd US 1. Slightly echogenic heterogeneous liver echotexture suggestive of hepatocellular disease. No focal liver lesion seen. Wall echo shadow complex suggestive of a gallbladder filled with gallstones. 2. Elastography: Metavir score F2 to F3 suggestive of [id number] risk of developing liver fibrosis. 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 Mejia, GI Backache 08/09/2015 Asthma 02/15/2013 Assessment & Plan (07/17/2025 5:49 AM EDT): -School Social Worker: Dr. Catherine, last seen in Nov 2023 -Most recent exacerbation on 03/03/24, seen in [facility]. Treated with prednisone burst. -01/26/24 treated with prednisone burst, patient had exacerbation on 12/08/23 and 11/26/23, treated with prednisone burst -Frequency of exacerbation 1 -2 x / mo for last 6 months -Continue Advair to 500/50 one puff bid. -Continue Singulair 10 mg qhs. -Continue albuterol HFA/neb prn. -pt's symptoms improve better with a nebulizer treatment. Nebulizer was prescribed. Assessment & Plan (04/16/2025 5:11 PM EDT): -School Social Worker: Dr. Catherine, last seen in Nov 2023 -Most recent exacerbation on 03/03/24, seen in [facility]. Treated with prednisone burst. -01/26/24 treated with prednisone burst, patient had exacerbation on 12/08/23 and 11/26/23, treated with prednisone burst -Frequency of exacerbation 1 -2 x / mo for last 6 months -Continue Advair to 500/50 one puff bid. -Continue Singulair 10 mg qhs. -Continue albuterol HFA/neb prn. -pt's symptoms improve better with a nebulizer treatment. Nebulizer was prescribed. Assessment & Plan (04/12/2024 10:11 AM EDT): -School Social Worker: Dr. Catherine, last seen in Nov 2023 -Most recent exacerbation on 03/03/24, seen in [facility]. Treated with prednisone burst. -01/26/24 treated with prednisone burst, patient had exacerbation on 12/08/23 and 11/26/23, treated with prednisone burst -Frequency of exacerbation 1 -2 x / mo for last 6 months -Continue Advair to 500/50 one puff bid. -Continue Singulair 10 mg qhs. -Continue albuterol HFA/neb prn. -pt's symptoms improve better with a nebulizer treatment. Nebulizer was prescribed. Assessment & Plan (02/28/2024 12:10 PM EDT): -School Social Worker: Dr. Catherine, last seen in Nov 2023 -Most recent exacerbation on 01/26/24 treated with prednisone burst, patient had exacerbation on 12/08/23 and 11/26/23, treated with prednisone burst -Frequency of exacerbation 1 -2 x / mo for last few months -Continue Advair to 500/50 one puff bid. -Continue Singulair 10 mg qhs. -Continue albuterol HFA/neb prn. -pt's symptoms improve better with a nebulizer treatment. Nebulizer was prescribed. Assessment & Plan (01/11/2024 5:39 AM EDT): -School Social Worker: Dr. Catherine, last seen in Nov 2023 -Most recent exacerbation on 12/28/23 treated with prednisone burst, patient had exacerbation in 11/26/23, treated with prednisone burst -Frequency of exacerbation 1 x / mo for last few months -Continue Advair to 500/50 one puff bid. -Continue Singulair 10 mg qhs. -Continue albuterol HFA/neb prn. -pt's symptoms improve better with a nebulizer treatment. Nebulizer was prescribed. Assessment & Plan (12/14/2023 1:13 PM EST): -School Social Worker: Dr. Catherine, last seen in Nov 2023 -Most recent exacerbation on 11/26/23, treated with prednisone burst -Continue Advair to 500/50 one puff bid. -Continue Singulair 10 mg qhs. -Continue albuterol HFA/neb prn. -pt's symptoms improve better with a nebulizer treatment. Nebulizer was prescribed. Assessment & Plan (04/29/2023 5:35 PM EDT): -School Social Worker: Dr. Catherine, last seen May 2022 -Most recent exacerbation on 01/20/20, treated with prednisone burst -Continue Advair to 500/50 one puff bid. -Continue Singulair 10 mg qhs. -Continue albuterol HFA/neb prn. -pt's symptoms improve better with a nebulizer treatment. Nebulizer was prescribed. Mixed anxiety and depressive disorder 12/30/2012 Assessment & Plan (04/26/2025 9:17 AM EDT): Work on stress reduction Assessment & Plan (12/14/2023 1:18 PM EST): Work on stress reduction Resolved Problems Problem Noted Date Diagnosed Date Resolved Date Laryngitis 01/26/2024 02/28/2024 Assessment & Plan (01/26/2024 5:31 PM EDT): Counseled re increase water intake Warm water/salt gargles Take PRD 20mg x 5d Transaminitis 11/24/2022 02/28/2024 Chronic hepatitis C 02/15/2013 12/09/19 24 Assessment & Plan (12/16/2022 3:59 AM EST): -Genotype 1a -Treated with Harvoni for 8 weeks in 2017 -Hx elevated AFP -Last LFT on 09/20/22 normal -Last abdominal US 09/12/21 porcelain gallbladder, mild hepatic steatosis without focal hepatic parenchymal lesion Encounters Date Type Department Care Team Description 07/17/2025 1:15 PM EDT Office Visit [facility] [address] [place] [id number] Charlotte Dickens MD Hypertension, unspecified type (Primary Dx); Dyslipidemia; Type 2 diabetes mellitus without complication, without long-term current use of insulin ([facility]/HCC); NE (obstructive sleep apnea); Moderate persistent asthma without complication; Dysuria; Encounter for immunization 07/17/2025 Travel 07/14/2025 Telephone [facility] [address] [place] [id number] Charlotte Dickens MD CHART PREP 07/11/2025 Telephone [facility] [address] [place] [address] [id number] Charlotte Dickens MD Appointment Request 07/07/2025 Patient Outreach [facility] [address] [place] [id number] Charlotte Dickens MD Pre-visit Planning ([facility] screening was completed on 04/27/2025) 06/29/2025 Refill [facility] [place] [id number] Charlotte Dickens MD 06/27/2025 Travel 06/26/2025 Plan of Care Documentation [facility] [phone] [place] [id number] 06/22/2025 Patient Outreach [facility] [place] [id number] Charlotte Dickens MD Care Management (C3CM- Initial assessment/enrollmen t) 06/21/2025 Patient Outreach [facility] [address] [place] [address] Charlotte Dickens MD Care Coordination (C3 [facility] [place] telephone call outreach) 06/20/2025 Refill [facility] [place] [address] Chas Angel MD Vertigo 06/19/2025 Refill [facility] [address] Charlotte Dickens MD Vertigo 05/31/2025 Patient Outreach [facility] [place] [address] Charlotte Dickens MD Care Coordination (C3 [facility] [place] telephone call outreach) 05/29/2025 Telephone [facility] [place] [address] Antonietta Reid, PharmD 05/24/2025 Telephone [facility] [place] [address] Antonietta Reid, PharmD 05/23/2025 Orders Only [facility] [place] [address] Charlotte Dickens MD Type 2 diabetes mellitus without complication, without long-term current use of insulin ([facility]) 05/23/2025 Travel 05/15/2025 Patient Outreach [facility] [place] [address] Charlotte Dickens MD Care Management (C3- Initial assessment/enrollmen t) 05/12/2025 Patient Outreach [facility] [place] [address] Charlotte Dicekns MD Care Coordination ([facility]3 [facility] [place] telephone call outreach) 05/11/2025 Orders Only [facility] [place] [address] Charlotte Dickens MD Type 2 diabetes mellitus without complication, without long-term current use of insulin (CMS/HCC) (Primary Dx); Hypertension, unspecified type; Moderate persistent asthma without complication 04/27/2025 Patient Outreach [facility] [place] [address] Charlotte Dickens MD Care Coordination 04/27/2025 Patient Outreach [address] [address] Charlotte Dickens MD 04/27/2025 Patient Outreach [address] [phone] Charlotte Dickens MD Care Coordination (C3- chart review) 04/27/2025 Patient Outreach [facility] [place] [address] Charlotte Dickens MD 04/19/2025 [address] [place] [address] Charlotte Dickens MD 04/18/[address] [phone] Charlotte Dickens MD Appointment Request 04/17/2025 11:30 AM EDT Office Visit [facility] [place] [address] Charlotte Dickens MD Hypertension, unspecified type (Primary Dx); Moderate persistent asthma without complication; NE (obstructive sleep apnea); Type 2 diabetes mellitus without complication, without long-term current use of insulin (CMS/HCC); Dyslipidemia; Class 2 severe obesity due to excess calories with serious comorbidity and body mass index (BMI) of 36.0 to 36.9 in adult (CMS/HCC); Recurrent UTI; History of hepatitis C; Breast cancer screening by mammogram; Colon cancer screening; Solitary kidney, congenital; History of recurrent UTI (urinary tract infection); Mixed anxiety and depressive disorder; Neck swelling; Throat pain; Sore throat; Throat discomfort 04/17/2025 Orders Only [facility] [address] [place] [address] Charlotte Dickens MD 04/17/2025 Travel from Last 3 Months Immunizations Immunization Administration Dates Next Due Hep A, Adult 09/01/2016,03/17/2005 Hep B, adult 12/16/2016,09/01/2016,03/17/2005 Influenza Injectable Quadriv alant Preservative Free IIV4 MDCK 11/22/2020 Influenza injectable quadriv alent IIV4 with preservative 10/05/2017,08/09/2015 Influenza injectable quadriv alent preservative free 08/25/2022,10/24/2019 Influenza, seasonal, injecta ble, preservative free 08/11/2016 Pneumococcal Conjugate PCV 20 07/17/2025 Pneumococcal Polysaccharide PPSV23 08/11/2016 TD (adult), 2 Lf tetanus tox oid, preservative free, adsorbed 03/17/2005 Tdap 08/09/2015 Zoster, Recombinant 03/18/2021,11/22/2020 Family History Medical History Relation Name Comments Diabetes Brother Mental illness Brother Throat cancer Maternal Grandfather Asthma Maternal Grandmother Diabetes Mother Uterine cancer Mother Relation Name Status Comments Brother Maternal Grandfather Maternal Grandmother Mother Social History Tobacco Use Types Packs/Day Years Used Date Smoking Tobacco: Never Passive Smoke Exposure: Never Smokeless Tobacco: Never Tobacco Cessation:Counseling Given: Not Answered Depression Answer Date Recorded Patient Health Questionnaire-9 Score 7 06/23/2025 Patient Health Questionnaire-9 Score 7 06/23/2025 Last PHQ-9: Questionnaire Data Not on file 0 06/23/2025 Housing Stability Answer Date Recorded What is your housing situation today? I have shaye [place] 11/28/[address] you li [...] the past 12 months, has t he navigaya, gas, oil or water company threatened to [...] not to disclose 2021 10:17 AM EDT Last Filed Vital Signs Vital Sign Reading [...] Mass Index 37.01 07/17/2025 1:25 PM EDT Plan of Treatment Upcoming Encounters Date Type Department Care Team (Late st Contact Info) Description 07/18/2025 11:30 AM EDT Medication Management [facility] [address] [place] [address] Antonietta Reid, PharmD [address] [place] [address] Health Maintenance Due Date Last Done Comments CT Colonography 1967 Colonoscopy 1967 Colorectal Cancer Screening 1967 FIT DNA/Cologuard 1967 FIT 1967 FOBT 1967 Sigmoidoscopy 1967 Pap Smear 1988 Cervical Cancer Screening 1997 HPV/Cotest 1997 Eye Exam 02/05/2025 02/05/2023, 040 04/2023, 02/05/2023, Additional history exists COVID-19 Vaccine ( season) 2025 01/25/2021, 12/28/2020 Influenza Vaccine (#1) 2025 , 11/22/2020, 10/24/2019, Additional history exists DTaP/Tdap/Td Vaccines (2 - Td or Tdap) 08/09/2025 08/09/2015, 03/17/2005 Diabetes: Hemoglobin A1C 10/16/2025 025, 04/17/2025, 04/12/2024, Additional history exists Diabetes: Foot Exam 04/17/2026 04/17/2025, 04/12/2024, 04/12/2024, Additional history exists Lipid Panel 04/17/2026 04/17/2025, 0203/2024, 04/27/2023, Additional history exists Diabetes: Urine Protein Screening 04/18/2026 04/18/2025, 12/07/2023 SDOH Screening 04/27/2026 04/27/2025 Depression Screening 06/23/2026 06/23/2025, 06/23/20 25 Alcohol/Substance Use Screening 07/17/2026 07/17/2025 Disability Screening 07/17/2026 07/17/2025 Tobacco Screening 07/17/2026 07/17/2025 Mammogram 06/15/2027 06/15/2025, 09/16/2021 RSV Patients and Patients Aged 60 years or older (1 - 1-dose 75+ series) 2042 Hepatitis A Vaccines Completed 09/01/2016, 03/17/20 Hepatitis B Vaccines Completed 12/16/2016, 09/01/2016, 03/17/2005 Zoster Vaccines Completed 03/18/2021, 11/22/2020 HIV Screening Completed 09/10/2022 Pneumococcal Vaccine: 50+ Years Completed 07/17/2025, 08/11/2016 HIB Vaccines Aged Out No longer eligi ble based on patient's age to complete this topic HPV Vaccines Aged Out No longer eligi ble based on patient's age to complete this topic IPV Vaccines Aged Out No longer eligi ble based on patient's age to complete this topic Meningococcal B Vaccine Aged Out No l onger eligible based on patient's age to complete this topic Meningococcal Vaccine Aged Out No gerri danyell eligible based on patient's age to complete this topic RSV under 20 months Aged Out No longe r eligible based on patient's age to complete this topic Rotavirus Vaccines Aged Out No longer eligible based on patient's age to complete this topic Procedures Procedure Name Priority Date/Time Associated Diagnosis Comments POCT URINALYSIS DIPSTICK Routine 07/17/2025 1:53 PM EDT Dysuria POCT GLYCOSYLATED HEMOGLOBIN (HGB A1C) Routine 07/17/2025 1:29 PM EDT Type 2 diabetes mellitus without complication, without long-term current use of insulin ([facility]) POCT GLUCOSE Routine 07/17/2025 1:27 PM EDT Type 2 diabetes mellitus without complication, without long-term current use of insulin ([facility]) BI MAMMOGRAM SCREENING TOMOSYNTHESIS BILATERAL Routine 06/15/2025 1:30 PM EDT Breast cancer screening by mammogram URINALYSIS, COMPLETE, WITH REFLEX TO CULTURE Routine 04/18/2025 1:25 PM EDT Recurrent UTI ALBUMIN, RANDOM URINE W/CREATININE Routine 04/18/2025 1:25 PM EDT Hypertension, unspecified type Type 2 diabetes mellitus without complication, without long-term current use of insulin (CMS/HCC) HEPATITIS C VIRAL RNA, QUANTITATIVE, REAL-TIME PCR Routine 04/17/2025 12:52 PM EDT HEPATITIS C AB W/REFL TO HCV RNA, QN, PCR Routine 04/17/2025 12:52 PM EDT History of hepatitis C TSH W/REFLEX TO FT4 Routine 04/17/2025 1 2:52 PM EDT Class 2 severe obesity due to excess calories with serious comorbidity and body mass index (BMI) of 36.0 to 36.9 in adult (CMS/HCC) COMPREHENSIVE METABOLIC PANEL Routine 04/17/2025 12:52 PM EDT Type 2 diabetes mellitus without complication, without long-term current use of insulin (CMS/HCC) LIPID PANEL WITH REFLEX TO DIRECT LDL Routine 04/17/2025 12:52 PM EDT Dyslipidemia VITAMIN B12/FOLATE, SERUM PANEL Routine 04/17/2025 12:52 PM EDT Type 2 diabetes mellitus without complication, without long-term current use of insulin (CMS/HCC) POCT GLYCOSYLATED HEMOGLOBIN (HGB A1C) Routine 04/17/2025 12:06 PM EDT Type 2 diabetes mellitus without complication, without long-term current use of insulin (CMS/HCC) POCT GLUCOSE Routine 04/17/2025 12:05 PM EDT Type 2 diabetes mellitus without complication, without long-term current use of insulin (CMS/HCC) HIV 1/2 ANTIGEN/ANTIBODY, FOURTH GENERATION W/RFL Routine 09/10/2022 11:22 AM EST from Last 3 Months or Most Recently Relevant to Health Maintenance Results * POCT urinalysis dipstick manually resulted [...] Media Lot # [id number] Lot# Expiration Date 3312, Urine 07/17/2025 1:53 PM EDT Charlotte Dickens MD POINT OF CARE TEST ENTER/EDIT OR DERABLES Final Result * (ABNORMAL) POCT glycosylated hemoglobin (Hgb A1c) (07/17/2025 1:29 PM EDT) Only the most recent of2 resultswithin the time period is included. Hemoglobin A1C 7.1(A) 4.0 - 5.7 % QC Media Lot # [id number] Lot# Expiration Date 4162, Blood Capillary blood specimen / Unknown 07/17/2025 1:29 PM EDT Charlotte Dickens MD POINT OF CARE TEST ENTER/EDIT OR DERABLES Final Result * POCT glucose manually resulted (07/17/2025 1:27 PM EDT) Only the most recent of2 resultswithin the time period is included. Glucose Blood, POC 134 60 - 200 mg/dL QC Media Lot # [id number] Lot# Expiration Date 163, Blood Capillary blood specimen / Unknown 07/17/2025 1:27 PM EDT Charlotte Dickens MD POINT OF CARE TEST ENTER/EDIT OR DERABLES Final Result * BI Mammogram Screening Tomosynthesis Bilateral (06/15/2025 1:30 PM EDT) Anatomical Region Laterality Modality Breast Bilateral Mammography 06/15/2025 1:30 PM EDT Narrative 06/20/2025 1:59 PM EDT Greg [facility] [address] [place], [place] [address] Mammography Report Signed Patient: Jacqui Russo MR#: [id number] : 1965 Acct:[id number] Age/Sex: 59 / F ADM Date: 06/15/25 Loc: HO.MAMMO Attending Dr: Charlotte Dickens MD Ordering Physician: Charlotte Dickens MD Results: 1Negative Date of Service: 06/15/25 Follow Up: 1 Year From [facility] Mammogram Procedure(s): MM tomosynthesis screening BI Accession Number(s): [id number] cc: Charlotte Dickens MD EXAMINATION: MM SCREENING DIGITAL BREAST TOMOSYNTHESIS, BILATERAL CLINICAL INFORMATION: Screening. Asymptomatic. COMPARISON: Mammography: Comparison is made with available priors TECHNIQUE: Digital breast mammography with tomosynthesis is performed in both the craniocaudal and mediolateral oblique views along with computer-aided detection (CAD). FINDINGS: The breasts are almost entirely fatty (ACR BI-RADS breast composition Category a). There are no significant masses, abnormal calcifications, or other abnormalities. MM/MM tomosynthesis screening BI IMPRESSION: No mammographic evidence of malignancy. ASSESSMENT: BI-RADS BI-RADS 1 - Negative RECOMMENDATION: Routine annual mammography screening. 1 year F/U This examination should not preclude the clinical evaluation of a suspicious palpable abnormality. This patient's information was entered into a reminder system with a target due date for their next mammogram. Electronically signed by: Meredith Lacy DO 06/20/2025 01:57 PM EDT Dictated By: Meredith Lacy DO Signed By: <Electronically signed by Meredith Lacy DO in OV> 06/20/25 1357 DD/ 1330 TD/TT: 06/15/25 1404 Barista: Procedure Note Donotuseinterpreter, Image - [facility] [address] [place] [address] Mammography Report Signed Patient: Jaqui Russo#: [id number] : 1965Acct:[id number] Age/Sex: 59 / FADM Date: 06/15/25 Loc: HO.MAMMO Attending Dr: Charlotte Dickens MD Ordering Physician: Charlotte Dickens MDResults: 1Negative Date of Service: 06/15/25Follow Up: 1 Year From Orig inal Mammogram Procedure(s): MM tomosynthesis screening BI Accession Number(s): [id number] cc: Charlotte Dickens MD EXAMINATION: MM SCREENING DIGITAL BREAST TOMOSYNTHESIS, BILATERAL CLINICAL INFORMATION: Screening. Asymptomatic. COMPARISON: Mammography: Comparison is made with available priors TECHNIQUE: Digital breast mammography with tomosynthesis is performed in both the craniocaudal and mediolateral oblique views along with computer-aided detection (CAD). FINDINGS: The breasts are almost entirely fatty (ACR BI-RADS breast composition Category a). There are no significant masses, abnormal calcifications, or other abnormalities. MM/MM tomosynthesis screening BI IMPRESSION: No mammographic evidence of malignancy. ASSESSMENT: BI-RADS BI-RADS 1 - Negative RECOMMENDATION: Routine annual mammography screening. 1 year F/U This examination should not preclude the clinical evaluation of a suspicious palpable abnormality. This patient's information was entered into a reminder system with a target due date for their next mammogram. Electronically signed by: Meredith Lacy DO 06/20/2025 01:57 PM EDT Dictated By: Meredith Lacy DO Signed By: <Electronically signed by Meredith Lacy DO in OV> 06/20/25 1357 DD/ 1330 TD/TT: 06/15/25 1404 Barista: Charlotte Dickens MD IMG BI PROCEDURES Final Result * (ABNORMAL) Urinalysis, Complete, with Reflex to Culture (04/18/2025 1:25 PM EDT) Color Urine Yellow [facility] Appearance Urine Clear [facility] PH 5.5 5.0 - 9.0 [facility] Glucose Urine UA >=1000(A) Negative mg/dL [facility] Urine Blood Negative Negative [facility] Specific [place] - Urine >=1.030(H) 1.005 - 1.025 [facility] Urine Protein Negative Neg-Trace mg/dL [facility] Urine Ketones 15 Negative mg/dL [facility] Nitrite Urine Negative Negative [facility] Leukocyte Esterase Urine Negative Negative [facility] RBC Urine 0-2 0 - 2 /HPF [facility] Urine WBC 0-5 0 - 5 /HPF [facility] Urine Squamous Epithelial Cell 6-10 0 - 2 /HPF [facility] Urine Bacteria 1+ None Seen [facility] Hyaline Casts, Urine 0-2 0 - 2 /LPF [facility] Urine Yeast Present [facility] Urine 04/18/2025 1:25 PM EDT 04/18/2025 4:05 PM EDT Narrative [facility] - 04/18/2025 4:28 PM EDT Urine, Clean Catch us Charlotte Dickens MD LAB URINE ORDERABLES Final Resul t Performing Organization Address City/State/[facility] Co de Phone Number [facility] [address] [place] [phone] * Albumin, Random Urine W/Creatinine (04/18/2025 1:25 PM EDT) Creatinine, Urine 102.75 mg/dL [facility] Microalbumin Urine 20.0 mg/L [facility] Microalbum Creatinine Ratio Ur 19.4 <30 ug/mg cr [facility] Comment:Albumin/Creatinine R atio Reference Ranges: Normal: < 30 ug/mg creatinine Microalbuminuria: 30 - 300 ug/mg creatinineClinical Albuminuria: > 300 ug/mg creatinine Urine 04/18/2025 1:25 PM EDT 04/18/2025 4:05 PM EDT us Charlotte Dickens MD LAB URINE ORDERABLES Final Resul t Performing Organization Address [facility] Co de Phone Number [facility] [address] [place] [phone] * Vitamin B12 (Cobalamin) and Folate Panel, Serum (04/17/2025 12:52 PM EDT) Vitamin B12 655 200 - 900 pg/mL [facility] Comment:NORMAL 200-900 PG/M L INDETERMINATE 160-199 PG/ML DEFICIENT < 160 PG/ML Folate 11.2 > or = 4.0 ng/mL [facility] Comment:Reference Values:> o r = 4.0 ng/mL< 4.0 ng/mL suggests folate deficiency Methotrexate, aminopterin and folinic acid(leucovorin) are chemotherapeutic agents whose molecularstructures are similar to folate; therefore, the Architectfolate assay cannot be used for patients using these drugs. Blood 04/17/2025 12:5 2 PM EDT 04/17/2025 4:10 PM EDT us Charlotte Dickens MD LAB BLOOD ORDERABLES Final Resul t Performing Organization Address [facility] Co de Phone Number [facility] [address] [place] [phone] * TSH with Reflex to Free T4 (04/17/2025 12:52 PM EDT) TSH reflex Free T4 1.89 0.32 - 4.0 uIU/mL [facility] Blood 04/17/2025 12:5 2 PM EDT 04/17/2025 4:10 PM EDT us Charlotte Dickens MD LAB BLOOD ORDERABLES Final Resul t [facility] [address] [place] [address] [phone] * (ABNORMAL) Lipid Panel with Reflex to Direct LDL (04/17/2025 12:52 PM EDT) Triglycerides 186(H) <150 mg/dL [facility] Comment:Desirable Triglyceri de: less than 150 mg/dLBorderline High Triglyceride 150-199 mg/dLHigh Triglyceride: 200-499 mg/dLVery High Triglyceride: greater than or equal to 5OO mg/dL Cholesterol 203(H) <200 mg/dL [facility] Comment:Desirable Cholestero l: less than 200 mg/dLBorderline High Cholesterol: 200-239 mg/dLHigh Cholesterol: greater than 239 mg/dL LDL Cholesterol Calculated 122(H) <100 mg/dL [facility] Comment:Desirable LDL: less than 100 mg/dLNear Optimal/Above Optimal LDL: 110- 129 mg/dLBorderline High LDL: 130-159 mg/dLHigh LDL: 160-189 mg/dLVery High LDL: greater than or equal to 190 mg/dL HDL Cholesterol 44 >40 mg/dL [facility] Comment:Desirable HDL: great er than 40 mg/dL Note: This HDL assay may give artificially low results in patients with liver disease. Blood 04/17/2025 12:5 2 PM EDT 04/17/2025 4:10 PM EDT Charlotte Dickens MD LAB BLOOD ORDERABLES Final Resul t Performing Organization Address City/[facility]/ZIP Co de Phone Number [facility] [address] [place] [address] [phone] * Hepatitis C Viral RNA, Quantitative, Real-Time PCR (04/17/2025 12:52 PM EDT) Hepatitis C Viral Load <15 NOT DETECTED NOT DETECTED IU/mL [facility] HCV Log PCR <1.18 NOT DETECTED NOT DETECTED Log IU/mL [facility] Comment:For additional infor michelle, please refer tohttp://education.questdiagnostics.com/faq/ZZJ49i9(This link is being provided for informational/educational purposes only.)THIS TEST WAS PERFORMED AT:[facility] [place] [phone] KOEHLER MD 04/17/2025 12:5 2 PM EDT 04/18/2025 10:17 AM EDT Charlotte Dickens MD LAB BLOOD ORDERABLES Final Resul t Performing Organization Address [facility]/ZIP Co de Phone Number [facility] [address] [place] [phone] * (ABNORMAL) Hepatitis C Antibody with Reflex to HCV, RNA, Quantitative, Real- Time PCR (04/17/2025 12:52 PM EDT) Pathologist [facility] Hepatitis C Antibody Reactive( A) Nonreactive [facility] Comment:Presumptive evidence of antibodies to HCV. Blood Venous blood specimen / Unknown 04/17/2025 12:52 PM EDT 04/17/2025 4:10 PM EDT Charlotte Dickens MD LAB BLOOD ORDERABLES Final Resul t Performing Organization Address [facility] Co de Phone Number [facility] [address] [place] [phone] * (ABNORMAL) Comprehensive Metabolic Panel (04/17/2025 12:52 PM EDT) Pathologist [facility] Sodium 138 135 - 145 mmol/L [facility] Potassium 3.8 3.3 - 5.1 mmol/L [facility] Chloride 106 96 - 108 mmol/L [facility] Carbon Dioxide 24 22 - 29 mmol/L [facility] Anion Gap 12 12 - 20 [facility] Urea Nitrogen (BUN) 7(L) 9 - 16 mg/dL [facility] Creatinine, Serum 0.77 0.5 - 1.4 mg/dL [facility] Estimated Glomerular Filt Rate >60 [facility] Comment:Chronic Kidney Disea se: Estimated GFR < 60 mL/min/1.03q5Qiblol Kidney Disease: Estimated GFR < 15 mL/min/1.73m2 Glucose 346(H) 60 - 115 mg/dL [facility] Calcium 9.3 8.4 - 10.2 mg/dL [facility] Bilirubin, Total 0.8 0.0 - 1.0 mg/dL [facility] Aspartate Amino Transferase 32(H) 5 - 31 U/L [facility] Alanine Aminotransferase 24 0 - 31 U/L [facility] Total Protein 7.0 6.5 - 8.0 g/dL [facility] Albumin Level 4.1 3.5 - 5.0 g/dL [facility] Alkaline Phosphatase 122(H) 39 - 117 U/L [facility] Blood Venous blood specimen / Unknown 04/17/2025 12:52 PM EDT 04/17/2025 4:10 PM EDT us Charlotte Dickens MD LAB BLOOD ORDERABLES Final Resul t [facility] [address] [place] [phone] * HIV 1/2 ANTIGEN/ANTIBODY,FOURTH GENERATION W/RFL (09/10/2022 11:22 AM EST) HIV-1/2 ANTIGEN AND ANTIBODIES, 4TH GENERATION W/ REFLEX NON-REACT RAMO NON-REACT RAMO [facility] Comment: HIV-1 antigen and HIV-1/HIV-2 antibodies were not detected. There is no laboratory evidence of HIV infection. PLEASE NOTE: This information has been disclosed to you from records whose confidentiality may be protected by state law. If your state requires such protection, then the state law prohibits you from making any further disclosure of the information without the specific written consent of the person to whom it pertains, or as otherwise permitted by law. A general authorization for the release of medical or other information is NOT sufficient for this purpose. For additional information please refer to http://education.[employer]/faq/TNM280 (This link is being provided for informational/ educational purposes only.) The performance of this assay has not been clinically validated in patients less than 2 years old. 09/10/2022 11:2 2 AM EST Charlotte Dickens MD LAB BLOOD ORDERABLES Final Resul t [facility] from Last 3 Months or Most Recently Relevant to Health Maintenance Insurance [address] [place], [place] [address] C3 Care Teams Design Engineering Intern Relationship Specialty Start Date End Date Charlotte Dickens MD [address] [place] [phone] PCP - General Family Medicine 05/19/14 Alex Ruby, RN [address] [place] [phone] Registered Nurse Family Medicine 04/27/25 Lubna Telles 04/27/25 Antonietta Reid, PolyD [address] [place] [phone] Pharmacist Pharmacy 05/24/25
--- OUTSIDE RECORDS SUMMARY | 2025-07-17 21:44 | XMS_ITS ---
Author Organization [employer] Address [address] [facility] 7t [place] [address] Care Team Providers Care Front Elevator Operator Name Role Phone Charlotte Dickens MD Primary Care Provider [phone] Alex Ruby RN Unavailable [phone] Lubna Telles Unavailable Antonietta Reid PharmD Unavailable [phone] CM Complex Status:Enrolled (Active) Start date:04/27/2025 Enrollment date:06/22/2025 Enrollment reason:Referred by provider Overview Provider Referral- pt misses many appts. Not adherent to treatment. Low medical literacy. Getting false health facts from the media or people. Case Team Name Relationship Phone Alex Ruby RN(Responsible Staff) Registered Marivel sweeney [phone] Continued Care and Services Coordination
--- OUTSIDE RECORDS SUMMARY | 2025-07-17 21:44 | XMS_ITS | Encounter Summary ---
Author Organization [employer] Address [address] [facility] 7t [place] [address] Care Team Providers Care Wildland Fire Operations Specialist Name Role Phone Charlotte Dickens MD Primary Care Provider [phone] Alex Ruby RN Unavailable [phone] Lubna Telles Unavailable Antonietta Reid PharmD Unavailable [phone] Encounter Details Date Type Department Care Team (Late st Contact Info) Description 12/04/2023 Orders Only [facility] MED[facility]INE [address] [place], [place] [phone] Charlotte Dickens MD [address] [place], [place] [phone] Type 2 diabetes mellitus without complication, without long-term current use of insulin ([facility]) Social History Tobacco Use Types Packs/Day Years [...] as of this encounter Miscellaneous Notes * Assessment & Plan Note - Charlotte Dickens MD - 12/04/2023 4:17 PM ESTAssociated Problem(s): Diabetes mellitus, type 2 (CMS/HCC) - Dx on 12/04/23 Random blood glucose 300 mg/dl documented in this encounter Plan of Treatment Upcoming Encounters Date Type Department Care Team (Late st Contact Info) Description 07/18/2025 11:30 AM EDT Medication Management [facility] MEDICINE [address] [place] [address] Antonietta Reid, PharmD [address] [place] [address] documented as of this encounter Procedures Procedure Name Priority Date/Time Associated Diagnosis Comments LIPID PANEL WITH REFLEX TO DIRECT LDL Routine 12/07/2023 9:10 AM EST Type 2 diabetes mellitus without complication, without long-term current use of insulin (CMS/HCC) ALBUMIN, RANDOM URINE W/CREATININE Routine 12/07/2023 9:10 AM EST Type 2 diabetes mellitus without complication, without long-term current use of insulin (CMS/HCC) HEMOGLOBIN A1C Routine 12/07/2023 9:10 AM EST Type 2 diabetes mellitus without complication, without long-term current use of insulin (CMS/HCC) TISSUE TRANSGLUTAMINASE AB, IGA Routine 12/04/2023 1:33 PM EST Type 2 diabetes mellitus without complication, without long-term current use of insulin ([facility]) IMMUNOGLOBULIN A Routine 12/04/2023 1:33 PM EST Type 2 diabetes mellitus without complication, without long-term current use of insulin ([facility]) documented in this encounter Results * Albumin, Random Urine W/Creatinine (12/07/2023 9:10 AM EST) Creatinine, Urine 111.49 mg/dL [facility] Microalbumin Urine 19.0 mg/L [facility] Microalbum Creatinine Ratio Ur 17.0 <30 ug/mg cr [facility] Comment:Albumin/Creatinine R atio Reference Ranges: Normal: < 30 ug/mg creatinine Microalbuminuria: 30 - 300 ug/mg creatinineClinical Albuminuria: > 300 ug/mg creatinine Urine 12/07/2023 9:10 AM EST 12/07/2023 11:22 AM EST us Charlotte Dickens MD LAB URINE ORDERABLES Final Resul t [facility] [address] [place] [phone] * (ABNORMAL) Lipid Panel with Reflex to Direct LDL (12/07/2023 9:10 AM EST) Triglycerides 90 <150 mg/dL [facility] Comment:Desirable Triglyceri de: less than 150 mg/dLBorderline High Triglyceride 150-199 mg/dLHigh Triglyceride: 200-499 mg/dLVery High Triglyceride: greater than or equal to 5OO mg/dL Cholesterol 195 <200 mg/dL [facility] Comment:Desirable Cholestero l: less than 200 mg/dLBorderline High Cholesterol: 200-239 mg/dLHigh Cholesterol: greater than 239 mg/dL LDL Cholesterol Calculated 100(H) <100 mg/dL [facility] Comment:Desirable LDL: less than 100 mg/dLNear Optimal/Above Optimal LDL: 110- 129 mg/dLBorderline High LDL: 130-159 mg/dLHigh LDL: 160-189 mg/dLVery High LDL: greater than or equal to 190 mg/dL HDL Cholesterol 77 >40 mg/dL [facility] Comment:Desirable HDL: great er than 40 mg/dL Note: This HDL assay may give artificially low results in patients with liver disease. Blood 12/07/2023 9:10 AM EST 12/07/2023 11:23 AM EST us Charlotte Dickens MD LAB BLOOD ORDERABLES Final Resul t Performing Organization Address [facility]/ZIP Co de Phone Number [facility] [address] [place] [phone] * (ABNORMAL) Hemoglobin A1c (12/07/2023 9:10 AM EST) Hemoglobin A1c 7.3(H) <6.0 % [facility] Comment:Hemoglobin A1C Refer ence Range Adults: 4.8 - 6.0 % Non diabetic: < 6.0 % Goal: < 7.0 %Additional Action Suggested: > 8.0 %Note: Hemoglobin A1c results are invalid for patients with abnormal amounts of HbF. Blood transfusions may impact the HbA1c concentration in the patient sample. Estimated Average Glucose 163 mg/dL [facility] Comment:eAG = Estimated ave rage glucose which is %A1C expressed asaverage glucose, using the formula of the U6J-DappberXsiiuxf Glucose study (ADAG), Diabetes Care, Vol.31,#8,Jun. 2007 Blood Venous blood specimen / Unknown 12/07/2023 9:10 AM EST 12/07/2023 11:23 AM EST Charlotte Dickens MD LAB BLOOD ORDERABLES Final Resul t Performing Organization Address [facility]/ZIP Co de Phone Number [facility] [address] [place] [phone] * Tissue Transglutaminase Antibody, IgA (12/04/2023 1:33 PM EST) Transglutaminase IgA <1.0 U/mL [facility] Comment:Value Interpretation ----- <15.0 Antibody not detected> or = 15.0 Antibody detectedTHIS TEST WAS PERFORMED AT:[facility] [address] [phone] KOEHLER MD 12/04/2023 1:33 PM EST 12/04/2023 1:33 PM EST Generic External Data Provider LAB BLOOD ORDERAB LES Final Result Performing Organization Address [facility] de Phone Number [facility] [address] [place] [phone] * Immunoglobulin A (12/04/2023 1:33 PM EST) Immunoglobulin A, Qn, Serum 153 47 - 310 mg/dL [facility] Comment:THIS TEST WAS PERFOR MED AT:[facility] [address] [phone] KOEHLER MD 12/04/2023 1:33 PM EST 12/04/2023 1:33 PM EST Generic External Data Provider LAB BLOOD ORDERAB LES Final Result Performing Organization Address [facility] de Phone Number [facility] [address] [place] [phone] documented in this encounter Visit Diagnoses Diagnosis Type 2 diabetes mellitus without complication, without long-term current use of insulin ([facility]) documented in this encounter Additional Health Concerns Assessment Noted Time PHQ-9 Depression Total Score: 0 04/27/20 23 3:33 PM EDT documented as of this encounter Care Teams Wildland Fire Operations Specialist Relationship Specialty Start Date End Date Charlotte Dickens MD [address] [place] [phone] PCP - General Family Medicine 05/19/14 Alex Ruby, RN [address] [place] [phone] Registered Nurse Family Medicine 04/27/25 Lubna Telles 04/27/25 Antonietta Reid, PolyD [address] [place] [phone] Pharmacist Pharmacy 05/24/25 documented as of this encounter
--- OUTSIDE RECORDS SUMMARY | 2025-07-17 21:44 | XMS_ITS ---
Author Organization [employer] Address [address] [facility] 7t [place] [address] Care Team Providers Care Commission Agent Livestock Name Role Phone Charlotte Dickens MD Primary Care Provider [phone] Alex Ruby RN Unavailable [phone] Lubna Telles Unavailable Antonietta Reid PharmD Unavailable [phone] Complex Status:Enrolled (Active) Start date:04/27/2025 Enrollment date:04/27/2025 Enrollment reason:Referred by provider Overview Provider Referral- pt misses many appts. Not adherent to treatment. Low medical literacy. Getting false health facts from the media or people. Case Team Name Relationship Phone Lubna Telles(Responsible Staff) [phone] Continued Care and Services Coordination
--- OUTSIDE RECORDS SUMMARY | 2025-07-17 21:44 | XMS_ITS | Encounter Summary ---
Author Organization [employer] Address [address] [facility] 7t [place] [address] Care Team Providers Care Outside Barrel Lathe Operator Name Role Phone Charlotte Dickens MD Primary Care Provider [phone] Alex Ruby RN Unavailable [phone] Lubna Telles Unavailable Antonietta Reid PharmD Unavailable [phone] Encounter Details Date Type Department Care Team (Late st Contact Info) Description 12/08/2023 Orders Only [facility] MEDICINE [address] [place], [place] [phone] Charlotte Dickens MD [address] [place], [place] [phone] Social History Tobacco Use Types Packs/Day Years [...] Description 07/18/2025 11:30 AM EDT Medication Management [facility] [address] [place] [phone] Antonietta Reid PharmD [address] [place] [phone] documented as of this encounter Visit Diagnoses Not on filedocumented in this encounter Additional Health Concerns Assessment Noted Time PHQ-9 Depression Total Score: 0 04/27/20 23 3:33 PM EDT documented as of this encounter Care Teams Outside Barrel Lathe Operator Relationship Specialty Start Date End Date Charlotte Dickens MD [address] [place] [phone] PCP - General Family Medicine 05/19/14 Alex Ruby, RN [address] [place] [phone] Registered Nurse Family Medicine 04/27/25 Lubna Telles 04/27/25 Antonietta Reid, Mary Anne [address] [place] [phone] Pharmacist Pharmacy 05/24/25 documented as of this encounter
== END 2025-07-17 17:41 | disposition home or self-care (01) ==
LOC: HO.HHCLNP 17:40
PROVIDERS: Visit Provider Family Medicine
DX: R30.0 Dysuria (principal)
CPT/HCPCS: 87086; 87088; 87186

== ENCOUNTER 2025-07-25 11:34 | Outpatient (REF) | payer MEDICAID, SELFPAY ==
--- OUTSIDE RECORDS SUMMARY | 2025-07-24 15:20 | XMS_ITS | Encounter Summary ---
Author Organization [employer] Address [address] [facility] 7t [place] [address] Care Team Providers Care Cyber Defense Incident Responder Name Role Phone Charlotte Dickens MD Primary Care Provider [phone] Alex Ruby RN Unavailable [phone] Lubna Telles Unavailable Antonietta Reid PharmD Unavailable Reason for Visit * Reason Comments Cough Asthma Encounter Details Date Type Department Care Team (Late st Contact Info) Description 07/24/2025 3:20 PM EDT Office Visit [facility] [address] [place], [place] [phone] Vikash Newton ANP [address] [place], [place] [phone] Pleuritic pain (Primary Dx); Acute cough; Moderate persistent asthma with acute exacerbation; Primary hypertension Social History Tobacco Use Types Packs/Day Years [...] the past 12 months, has t he [employer], gas, oil or water company threatened to [...] Sign Reading Time Taken Comments Blood Pressure 151/80 07/24/2025 3:52 PM EDT Pulse 84 07/24/2025 3:52 PM EDT Temperature 36.6 C (97.9 F) 07/24/2025 3:52 PM EDT Respiratory Rate 20 07/24/2025 3:52 PM EDT Oxygen Saturation 98% 07/24/2025 3:52 PM EDT Inhaled Oxygen Concentration - - Weight 98.3 kg (216 lb 12.8 oz) 07/24/2025 3:52 PM EDT Height - - Body Mass Index 37.21 07/17/2025 1:25 PM EDT documented in this encounter Progress Notes * NARCISO Cooley - 07/24/2025 3:20 PM EDT Subjective Patient ID: Jacqui Russo is a 59 y.o. female who presents for Cough and Asthma. PMH incl GERD, asthma, T2DM, HTN Lab Results Component Value Date HGBA1C 7.1 (A) 07/17/[address] Catherine [facility] History incl hospitalization [place] [facility] [place] PNA 11/2024 Cough Associated symptoms include wheezing. Pertinent negatives include no chest pain, chills, ear pain, fever, sore throat or shortness of breath. Her past medical history is significant for asthma. Asthma Associated symptoms: cough and wheezing Associated symptoms: no chest pain, no congestion, no ear pain, no fever, no shortness of breath and no sore throat Here today w/ 1 week of worse asthma than usual Better w/ albuterol Taking advair as directed Assoc symptoms incl L sided pleuritic back pain No SOB, KOWALSKI, leg swelling, CP Family member is sick w/ cold symptoms. Non-smoker Review of Systems Constitutional: Negative for chills, fever and unexpected weight change. HENT: Negative for congestion, ear pain and sore throat. Eyes: Negative for visual disturbance. Respiratory: Positive for cough and wheezing. Negative for shortness of breath. Cardiovascular: Negative for chest pain and palpitations. Objective BP (!) 151/80 (BP Location: Left arm, Patient Position: Sitting, BP Cuff Size: Adult) Pulse 84 Temp 97.9 ??F (36.6 ??C) (Temporal) Resp 20 Wt 216 lb 12.8 oz (98.3 kg) SpO2 98% BMI 37.21 kg/m?? Physical Exam Vitals reviewed. Constitutional: Appearance: Normal appearance. She is obese. HENT: Head: Normocephalic and atraumatic. Right Ear: Tympanic membrane and ear canal normal. Left Ear: Tympanic membrane and ear canal normal. Eyes: General: No scleral icterus. Extraocular Movements: Extraocular movements intact. Pupils: Pupils are equal, round, and reactive to light. Cardiovascular: Rate and Rhythm: Normal rate and regular rhythm. Pulmonary: Effort: Pulmonary effort is normal. Breath sounds: Wheezing present. Musculoskeletal: Comments: Gait mildly antalgic, no TTP of thoracic back Lymphadenopathy: Cervical: No cervical adenopathy. Neurological: Mental Status: She is alert and oriented to person, place, and time. Psychiatric: Mood and Affect: Mood normal. Behavior: Behavior normal. Assessment/Plan Diagnoses and all orders for this visit: Pleuritic pain - XR Chest 2 Views; Future Acute cough - POCT Rapid COVID Ag - Influenza A (ID NOW Rapid Molecular) - Influenza B (ID NOW Rapid Molecular) Moderate persistent asthma with acute exacerbation Rapid testing negative for COVID & flu Recommend prednisone burst for asthma exacerbation, will notify CDTM of this for BG mgmt if needed Check XR for PNA r/o Call pt w/ result - predniSONE (Deltasone) 50 MG tablet; Take 1 tablet (50 mg) by mouth Once per day for 5 days. Hypertension Cont home meds, home monitoring, follow-up w/ PCP documented in this encounter Plan of Treatment Not on file documented as of this encounter Procedures Procedure Name Priority Date/Time Associated Diagnosis Comments XR CHEST 2 VIEWS Routine 07/25/2025 11:5 0 AM EDT Pleuritic pain POCT INFLUENZA B (ID NOW RAPID MOLECULAR) Routine 07/24/2025 4:11 PM EDT Acute cough POCT INFLUENZA A (ID NOW RAPID MOLECULAR) Routine 07/24/2025 4:11 PM EDT Acute cough POCT RAPID COVID ANTIGEN Routine 07/24/2025 4:11 PM EDT Acute cough documented in this encounter Results * XR Chest 2 Views (07/25/2025 11:50 AM EDT) Anatomical Region Laterality Modality Chest Radiographic Barby ging 07/25/2025 11:5 0 AM EDT Narrative 07/25/2025 12:03 PM EDT [address] [address] XRay Report Signed Patient: Jacqui Russo MR#: [id number] : 1965 Acct:[id number] Age/Sex: 59 / F ADM Date: 07/25/25 Loc: [facility] Attending Dr: Vikash Newton NP Ordering Physician: VIKASH NEWTON NP Date of Service: 07/25/25 Procedure(s): XR chest 2V Accession Number(s): [id number] cc: VIKASH NEWTON NP; Charlotte Dickens MD Reason for Exam: pleuritic pain, r/o PNA EXAMINATION: XR CHEST CLINICAL INFORMATION: pleuritic pain, r/o PNA COMPARISON: 11/20/2024, 03/03/2024, 01/24/2021. TECHNIQUE: 2 views of the chest were obtained. FINDINGS: The cardiac, hilar, and mediastinal contours are normal. The lungs are clear bilaterally. There is no pneumothorax or pleural effusion. There is no focal osseous or soft tissue abnormality. XR/XR chest 2V IMPRESSION: No active pulmonary disease. Electronically signed by: Ambrocio Ornelas MD 07/25/2025 12:01 PM EDT Dictated By: Ambrocio Ornelas MD Signed By: <Electronically signed by Ambrocio Ornelas MD in OV> 07/25/25 1201 DD/ 1150 TD/TT: 07/25/25 1157 Certified Peer Specialist: Procedure Note Donotuseinterpreter, Image - 07/25/2025 [place] [address] XRay Report Signed Patient: Jacqui RussoMR#: [id number] : 1965Acct:[id number] Age/Sex: 59 / FADM Date: 07/25/25 Loc: [facility] Attending Dr: Vikash Newton NP Ordering Physician: VIKASH NEWTON NP Date of Service: 07/25/25 Procedure(s): XR chest 2V Accession Number(s): [id number] cc: VIKASH NEWTON NP; Charlotte Dickens MD Reason for Exam: pleuritic pain, r/o PNA EXAMINATION: XR CHEST CLINICAL INFORMATION: pleuritic pain, r/o PNA COMPARISON: 11/20/2024, 03/03/2024, 01/24/2021. TECHNIQUE: 2 views of the chest were obtained. FINDINGS: The cardiac, hilar, and mediastinal contours are normal. The lungs are clear bilaterally. There is no pneumothorax or pleural effusion. There is no focal osseous or soft tissue abnormality. XR/XR chest 2V IMPRESSION: No active pulmonary disease. Electronically signed by: Ambrocio Ornelas MD 07/25/2025 12:01 PM EDT Dictated By: Ambrocio Ornelas MD Signed By: <Electronically signed by Ambrocio Ornelas MD in OV> 07/25/25 1201 DD/ 1150 TD/TT: 07/25/25 1157 Certified Peer Specialist: us Vikash Newton ANP IMG XR PROCEDURES Final Result * Influenza B (ID NOW Rapid Molecular) (07/24/2025 4:11 PM EDT) Influenza B Negative Negative, Indeterminate [facility] Swab 07/24/2025 4:11 PM EDT us Vikash Newton ANP POINT OF CARE TEST ENTER/EDIT OR DERABLES Final Result Performing Organization Address [facility] Co de Phone Number [facility] [address] [place] [phone] * Influenza A (ID NOW Rapid Molecular) (07/24/2025 4:11 PM EDT) Influenza A Negative Negative, Indeterminate [facility] Swab 07/24/2025 4:11 PM EDT Vikash Newton ANP POINT OF CARE TEST ENTER/EDIT OR DERABLES Final Result Performing Organization Address [facility] Co de Phone Number [facility] [address] [place] [phone] * POCT Rapid COVID Ag (07/24/2025 4:11 PM EDT) Rapid COVID Ag Negative [facility] Swab 07/24/2025 4:11 PM EDT [facility] POINT OF CARE TEST ENTER/EDIT OR DERABLES Final Result [facility] [address] [place] [phone] documented in this encounter Visit Diagnoses Diagnosis Pleuritic pain- Primary Painful respiration Acute cough Moderate persistent asthma with acute exacerbation Primary hypertension Unspecified essential hypertension documented in this encounter Additional Health Concerns Assessment Noted Time PHQ-9 Depression Total Score: 7 06/23/20 25 2:13 PM EDT documented as of this encounter Care Teams Cyber Defense Incident Responder Relationship Specialty Start Date End Date Charlotte Dickens MD [address] [place] [address] PCP - General Family Medicine 05/19/14 Alex Ruby, RICHIE [address] [place] [address] Registered Nurse Family Medicine 04/27/25 Lubna Telles 04/27/25 Antonietta Reid, Mary Anne [address] [place] [address] Pharmacist Pharmacy 05/24/25 documented as of this encounter
--- NOTE | ~2025-07-25 | XR_ITS ---
EXAMINATION: XR CHEST CLINICAL INFORMATION: pleuritic pain, r/o PNA COMPARISON: 11/20/2024, 03/03/2024, 01/24/2021. TECHNIQUE: 2 views of the chest were obtained. FINDINGS: The cardiac, hilar, and mediastinal contours are normal. The lungs are clear bilaterally. There is no pneumothorax or pleural effusion. There is no focal osseous or soft tissue abnormality. XR/XR chest 2V IMPRESSION: No active pulmonary disease. Electronically signed by: Ambrocio Ornelas MD 07/25/2025 12:01 PM EDT
--- OUTSIDE RECORDS SUMMARY | 2025-07-25 14:29 | XMS_ITS | Encounter Summary ---
Author Organization [facility] Address [address] [facility] 7t [place] [address] Care Team Providers Care Slip Maker Name Role Phone Charlotte Dickens MD Primary Care Provider [phone] Alex Ruby RN Unavailable [phone] Lubna Telles Unavailable Antonietta Reid PharmD Unavailable [phone] Encounter Details Date Type Department Care Team (Late st Contact Info) Description 12/04/2023 Orders Only [facility] MEDICINE [address] [place], [place] [phone] Charlotte Dickens MD [address] [place], [place] [phone] Type 2 diabetes mellitus without complication, without long-term current use of insulin ([facility]) Social History Tobacco Use [...] complication, without long-term current use of insulin ([facility]) HEMOGLOBIN A1C Routine 12/07/2023 9:10 AM EST Type 2 diabetes mellitus without complication, without long-term current use of insulin ([facility]) TISSUE TRANSGLUTAMINASE AB, IGA Routine 12/04/2023 1:33 PM EST Type 2 diabetes mellitus without complication, without long-term current use of insulin (CMS/HCC) IMMUNOGLOBULIN A Routine 12/04/2023 1:33 PM EST Type 2 diabetes mellitus without complication, without long-term current use of insulin ([facility]) documented in this encounter Results * Albumin, Random Urine W/Creatinine (12/07/2023 9:10 AM EST) Creatinine, Urine 111.49 mg/dL [facility] Microalbumin Urine 19.0 mg/L [facility] Microalbum Creatinine Ratio Ur 17.0 <30 ug/mg cr [facility] Comment:Albumin/Creatinine R atio Reference Ranges: Normal: < 30 ug/mg creatinine Microalbuminuria: 30 - 300 ug/mg creatinineClinical Albuminuria: > 300 ug/mg creatinine Urine 12/07/2023 9:10 AM EST 12/07/2023 11:22 AM EST us Charlotte Dickens MD LAB URINE ORDERABLES Final Resul t Performing Organization Address City/State/[facility] Co de Phone Number [facility] [address] [place] [phone] * (ABNORMAL) Lipid Panel with Reflex to Direct LDL (12/07/2023 9:10 AM EST) Triglycerides 90 <150 mg/dL [facility] Comment:Desirable Triglyceri de: less than 150 mg/dLBorderline High Triglyceride 150-199 mg/dLHigh Triglyceride: 200-499 mg/dLVery High Triglyceride: greater than or equal to 5OO mg/dL Cholesterol 195 <200 mg/dL [facility] Comment:Desirable Cholestero l: less than 200 mg/dLBorderline High Cholesterol: 200-239 mg/dLHigh Cholesterol: greater than 239 mg/dL LDL Cholesterol Calculated 100(H) <100 mg/dL [facility] Comment:Desirable LDL: less than 100 mg/dLNear Optimal/Above Optimal LDL: 110- 129 mg/dLBorderline High LDL: 130-159 mg/dLHigh LDL: 160-189 mg/dLVery High LDL: greater than or equal to 190 mg/dL HDL Cholesterol 77 >40 mg/dL [facility] Comment:Desirable HDL: great er than 40 mg/dL Note: This HDL assay may give artificially low results in patients with liver disease. Blood 12/07/2023 9:10 AM EST 12/07/2023 11:23 AM EST Charlotte Dickens MD LAB BLOOD ORDERABLES Final Resul t Performing Organization Address [facility] de Phone Number [facility] [address] [place] [phone] * (ABNORMAL) Hemoglobin A1c (12/07/2023 9:10 AM EST) Hemoglobin A1c 7.3(H) <6.0 % [facility] Comment:Hemoglobin A1C Refer ence Range Adults: 4.8 - 6.0 % Non diabetic: < 6.0 % Goal: < 7.0 %Additional Action Suggested: > 8.0 %Note: Hemoglobin A1c results are invalid for patients with abnormal amounts of HbF. Blood transfusions may impact the HbA1c concentration in the patient sample. Estimated Average Glucose 163 mg/dL [facility] Comment:eAG = Estimated ave rage glucose which is %A1C expressed asaverage glucose, using the formula of the R4K-MuciuzeAxgfpfe Glucose study (ADAG), Diabetes Care, Vol.31,#8,Jun. 2007 Blood Venous blood specimen / Unknown 12/07/2023 9:10 AM EST 12/07/2023 11:23 AM EST Charlotte Dickens MD LAB BLOOD ORDERABLES Final Resul t Performing Organization Address [facility] de Phone Number [facility] [address] [place] [phone] * Tissue Transglutaminase Antibody, IgA (12/04/2023 1:33 PM EST) Transglutaminase IgA <1.0 U/mL [facility] Comment:Value Interpretation ----- <15.0 Antibody not detected> or = 15.0 Antibody detectedTHIS TEST WAS PERFORMED AT:[facility] [address] [id number] KOEHLER MD 12/04/2023 1:33 PM EST 12/04/2023 1:33 PM EST Generic External Data Provider LAB BLOOD ORDERAB LES Final Result Performing Organization Address City/[facility]/ZIP Co de Phone Number [facility] [address] [place] [phone] * Immunoglobulin A (12/04/2023 1:33 PM EST) Immunoglobulin A, Qn, Serum 153 47 - 310 mg/dL [facility] Comment:THIS TEST WAS PERFOR MED AT:[facility] [address] [id number] KOEHLER MD 12/04/2023 1:33 PM EST 12/04/2023 1:33 PM EST Generic External Data Provider LAB BLOOD ORDERAB LES Final Result Performing Organization Address [facility]/ZIP Co de Phone Number [facility] [address] [place] [phone] documented in this encounter Visit Diagnoses Diagnosis Type 2 diabetes mellitus without complication, without long-term current use of insulin ([facility]) documented in this encounter Additional Health Concerns Assessment Noted Time PHQ-9 Depression Total Score: 0 04/27/20 23 3:33 PM EDT documented as of this encounter Care Teams Slip Maker Relationship Specialty Start Date End Date Charlotte Dickens MD [address] [place] [address] PCP - General Family Medicine 05/19/14 Alex Ruby, RN [address] [place] [address] Registered Nurse Family Medicine 04/27/25 Lubna Telles 04/27/25 Antonietta Reid, PharmD [address] [place] [phone] Pharmacist Pharmacy 05/24/25 documented as of this encounter
--- OUTSIDE RECORDS SUMMARY | 2025-07-25 14:29 | XMS_ITS | Encounter Summary ---
Author Organization [employer] [facility] Address [address] [facility] 7t [place] [address] Care Team Providers Care Pallet Assembler Name Role Phone Charlotte Dickens MD Primary Care Provider [phone] Alex Ruby RN Unavailable [phone] Lubna Telles Unavailable Antonietta Reid PharmD Unavailable [phone] Reason for Visit * Reason Onset Date Comments Appointment Request 11/03/2023 Encounter Details Date Type Department Care Team (Late st Contact Info) Description 11/03/2023 Telephone [facility]INE [address] [place], [place] [phone] Charlotte Dickens MD [address] [place], [place] [phone] Appointment Request Social History Tobacco Use Types [...] provider advice this. Please contact Pt @ [phone] documented in this encounter Plan of Treatment Not on file documented as of this encounter Visit Diagnoses Not on filedocumented in this encounter Additional Health Concerns Assessment Noted Time PHQ-9 Depression Total Score: 0 04/27/20 23 3:33 PM EDT documented as of this encounter Care Teams Pallet Assembler Relationship Specialty Start Date End Date Charlotte Dickens MD [address] [place] [address] PCP - General Family Medicine 05/19/14 Alex Ruby, RN [address] [place] [address] Registered Nurse Family Medicine 04/27/25 Lubna Telles 04/27/25 Antonietta Reid, Mary Anne [address] [place] [address] Pharmacist Pharmacy 05/24/25 documented as of this encounter
--- OUTSIDE RECORDS SUMMARY | 2025-07-25 14:29 | XMS_ITS | Encounter Summary ---
Author Organization [employer] [facility] Address [address] [facility] 7t [place] [address] Care Team Providers Care Laboratory Equipment Cleaner Name Role Phone Charlotte Dickens MD Primary Care Provider [phone] Alex Ruby RN Unavailable [phone] Lubna Telles Unavailable Antonietta Reid PharmD Unavailable [phone] Encounter Details Date Type Department Care Team (Latest Contact Info) Description 07/24/2025 Travel Social History Tobacco Use Types Packs/Day [...] the past 12 months, has t he [employer], oil or water [employer] threatened to shut off services in your [...] documented as of this encounter Care Teams Laboratory Equipment Cleaner Relationship Specialty Start Date End Date Charlotte Dickens MD [address] [place] [address] PCP - General Family Medicine 05/19/14 Alex Ruby, RICHIE [address] [place] [address] Registered Nurse Family Medicine 04/27/25 Lubna Telles 04/27/25 Antonietta Reid, Mary Anne [address] [place] [phone] Pharmacist Pharmacy 05/24/25 documented as of this encounter
--- OUTSIDE RECORDS SUMMARY | 2025-07-25 14:29 | XMS_ITS | Encounter Summary ---
Author Organization [employer] Address [address] [facility] 7t [place] [address] Care Team Providers Care Atomic Spectroscopist Name Role Phone Charlotte Dickens MD Primary Care Provider [phone] Alex Ruby RN Unavailable [phone] Lubna Telles Unavailable Antonietta Reid PharmD Unavailable [phone] Encounter Details Date Type Department Care Team (Late st Contact Info) Description 05/23/2025 Orders Only [facility] MEDICINE [address] [place], [place] [phone] Charlotte Dickens MD [address] [place], [place] [phone] Type 2 diabetes mellitus without complication, without long-term current use of insulin ([facility]) Social History Tobacco Use Types Packs/Day Years [...] complication, without long-term current use of insulin ([facility]) documented in this encounter Additional Health Concerns Assessment Noted Time PHQ-9 Depression Total Score: 0 04/12/20 24 2:57 PM EDT documented as of this encounter Care Teams Atomic Spectroscopist Relationship Specialty Start Date End Date Charlotte Dickens MD [address] [place] [address] PCP - General Family Medicine 05/19/14 Alex Ruby, RICHIE [address] [place] [address] Registered Nurse Family Medicine 04/27/25 Lubna Telles 04/27/25 Antonietta Reid, PolyD [address] [place] [phone] Pharmacist Pharmacy 05/24/25 documented as of this encounter
--- OUTSIDE RECORDS SUMMARY | 2025-07-25 14:29 | XMS_ITS | Encounter Summary ---
Author Organization [employer] Address [address] [facility] 7t [place] [address] Care Team Providers Care Heel Room Supervisor Name Role Phone Charlotte Dickens MD Primary Care Provider [phone] Alex Ruby RN Unavailable [phone] Lubna Telles Unavailable Antonietta Reid PharmD Unavailable [phone] Encounter Details Date Type Department Care Team (Latest Contact Info) Description 07/20/2025 Results Follow-Up [facility] MEDICINE [address] [place], [place] [phone] Charlotte Dickens MD [address] [place] [address] POCT glycosylated hemoglobin (Hgb A1c), POCT glucose manually resulted, Culture, Urine, Routine, POCT urinalysis dipstick manually resulted Social History Tobacco Use Types Packs/Day Years [...] the past 12 months, has t he [employer], gas, oil or water company threatened to [...] encounter Miscellaneous Notes * Telephone Encounter - Jordana Morrison RN - 07/20/2025 9:36 AM EDT Tc to pt via S ID: [id number] to let them know per PCP Please inform her urine culture grew bacteria. Sending antibiotic today. Please advise her to start treatment. Thank you . Pt verbalized understanding and agrees with plan. * Telephone Encounter - Jordana Morrison RN - 07/20/2025 9:36 AM EDT ----- Message from Charlotte Dickens MD sent at 07/20/2025 8:39 AM EDT ----- Please inform her urine culture grew bacteria. Sending antibiotic today. Please advise her to starttreatment. Thank you ----- Message ----- From: Zara Patel [place] Sent: 07/17/2025 1:27 PM EDT To: Charlotte Dickens MD documented in this encounter Plan of Treatment Not on file documented as of this encounter Visit Diagnoses Not on filedocumented in this encounter Additional Health Concerns Assessment Noted Time PHQ-9 Depression Total Score: 7 06/23/20 2:13 PM EDT documented as of this encounter Care Teams Heel Room Supervisor Relationship Specialty Start Date End Date Charlotte Dickens MD [address] [place] [address] PCP - General Family Medicine 05/19/14 Alex Ruby, RICHIE [address] [place] [address] Registered Nurse Family Medicine 04/27/25 Lubna Telles 04/27/25 Antonietta Reid, PolyD [address] [place] [address] Pharmacist Pharmacy 05/24/25 documented as of this encounter
--- OUTSIDE RECORDS SUMMARY | 2025-07-25 14:29 | XMS_ITS ---
Author Organization [employer] Address [address] [facility] 7t [place] [address] Care Team Providers Care Ore Roaster Name Role Phone Charlotte Dickens MD Primary Care Provider [phone] Alex Ruby RN Unavailable [phone] Lubna Telles Unavailable Antonietta Reid PharmD Unavailable [phone] [facility] Status:Enrolled (Active) Start date:04/27/2025 Enrollment date:04/27/2025 Enrollment reason:Referred by provider Overview Provider Referral- pt misses many appts. Not adherent to treatment. Low medical literacy. Getting false health facts from the media or people. Case Team Name Relationship Phone Lubna Telles(Responsible Staff) Continued Care and Services Coordination
--- OUTSIDE RECORDS SUMMARY | 2025-07-25 14:29 | XMS_ITS | Encounter Summary ---
Author Organization [employer] Address [address] [facility] 7t [place] [address] Care Team Providers Care Shelf Drier Operator Name Role Phone Charlotte Dickens MD Primary Care Provider [phone] Alex Ruby RN Unavailable [phone] Lubna Telles Unavailable Antonietta Reid PharmD Unavailable [phone] Encounter Details Date Type Department Care Team (Late st Contact Info) Description 07/25/2025 Telephone [facility] MEDICINE [address] [place], [place] [phone] Charlotte Dickens MD [address] [place], [place] [phone] Social History Tobacco Use Types Packs/Day Years [...] * Telephone Encounter - Devi Grullon - 07/25/2025 10:04 AM EDT Pharmacy [facility] attempted outreach call on 07/25/25 for CDTM - Diabetes appointment; however, unable to reach patient. LVM for patient to contact Devi Grullon at [phone]. documented in this encounter Plan of Treatment Not on file documented as of this encounter Visit Diagnoses Not on filedocumented in this encounter Additional Health Concerns Assessment Noted Time PHQ-9 Depression Total Score: 7 06/23/20 2:13 PM EDT documented as of this encounter Care Teams Shelf Drier Operator Relationship Specialty Start Date End Date Charlotte Dickens MD [address] [place] [address] PCP - General Family Medicine 05/19/14 Alex Ruby, RN [address] [place] [address] Registered Nurse Family Medicine 04/27/25 Lubna Telles 04/27/25 Antonietta Reid, PolyD [address] [place] [address] Pharmacist Pharmacy 05/24/25 documented as of this encounter
--- OUTSIDE RECORDS SUMMARY | 2025-07-25 14:29 | XMS_ITS | Encounter Summary ---
Author Organization [employer] Address [address] [facility] 7t [place] [address] Care Team Providers Care Boiler Cleaner Name Role Phone Charlotte Dickens MD Primary Care Provider [phone] Alex Ruby RN Unavailable [phone] Lubna Telles Unavailable Antonietta Reid PharmD Unavailable [phone] Encounter Details Date Type Department Care Team (Late st Contact Info) Description 07/20/2025 Orders Only [facility] MEDICINE [address] [place], [place] [phone] Charlotte Dickens MD [address] [place], [place] [phone] Social History Tobacco Use Types Packs/Day Years [...] documented as of this encounter Care Teams Boiler Cleaner Relationship Specialty Start Date End Date Charlotte Dickens MD [address] [place] [address] PCP - General Family Medicine 05/19/14 Alex Ruby RN [address] [place] [address] Registered Nurse Family Medicine 04/27/25 Lubna Telles 04/27/25 Antonietta Reid, PharmD [address] [place] [phone] Pharmacist Pharmacy 05/24/25 documented as of this encounter
--- OUTSIDE RECORDS SUMMARY | 2025-07-25 14:29 | XMS_ITS | Encounter Summary ---
Author Organization [employer] Address [address] [facility] 7t [place] [address] Care Team Providers Care Medical Insurance Biller Name Role Phone Charlotte Dickens MD Primary Care Provider [phone] Alex Ruby RN Unavailable [phone] Lubna Telles Unavailable Antonietta Reid PharmD Unavailable [phone] Encounter Details Date Type Department Care Team (Late st Contact Info) Description 12/08/2023 Orders Only [facility] MEDICINE [address] [place], [place] [phone] Charlotte Dickens MD [address] [place], [place] [phone] Social History Tobacco Use Types Packs/Day Years [...] documented as of this encounter Care Teams Medical Insurance Biller Relationship Specialty Start Date End Date Charlotte Dickens MD [address] [place] [address] PCP - General Family Medicine 05/19/14 Alex Ruby, RICHIE [address] [place] [address] Registered Nurse Family Medicine 04/27/25 Lubna Telles 04/27/25 Antonietta Reid, Mary Anne [address] [place] [address] Pharmacist Pharmacy 05/24/25 documented as of this encounter
--- OUTSIDE RECORDS SUMMARY | 2025-07-25 14:29 | XMS_ITS | Clinical Summary ---
Author Organization [employer] Address [address] [facility] 7[address] [place] [address] Care Team Providers Care Speeder Worker Name Role Phone Charlotte Dickens MD Primary Care Provider [phone] Alex Ruby RN Unavailable [phone] [place] Telles Unavailable Antonietta Reid PharmD Unavailable Allergies Active Allergy Reactions Criticality Noted Date [...] 3 times per day 100 each 3 Active BD Pen Needle Noemy Ultrafine 32G X 4 MM misc use as directed Active ondansetron ODT (Zofran-ODT) 4 MG disintegrating tabletIndications :Vertigo DISSOLVE 1 TABLET ON TONGUE EVERY 8 HOURS NEEDED FOR NAUSEA AND VOMITING 20 tablet 1 Active meclizine (Antivert) 25 MG tabletIndications :Vertigo TAKE 1 TABLET BY MOUTH EVERY 6 HOURS NEEDED FOR DIZZINESS 30 tablet 1 Active metFORMIN XR (Glucophage-XR) 500 MG 24 hr tabletIndications :Type 2 diabetes mellitus without complication, without long-term current use of insulin ([facility]) TAKE 2 TABLETS BY MOUTH TWICE DAILY WITH BREAKFAST AND WITH DINNER, DO NOT BREAK, CRUSH, DISSOLVE OR CHEW 360 tablet 1 Active Ventolin HFA 108 (90 Base) MCG/ACT inhaler INHALE 2 PUFFS BY MOUTH EVERY 4 TO 6 HOURS NEEDED FOR DIFFICULTY BREATHING. DO NOT EXCEED FOUR TIMES DAILY. 18 g 3 Active predniSONE (Deltasone) 50 MG tabletIndications :Moderate persistent asthma with acute exacerbation Take 1 tablet (50 mg) by mouth Once per day for 5 days. 5 tablet 025 2024 Active Ventolin HFA 108 (90 Base) MCG/ACT inhaler INHALE 2 PUFFS BY MOUTH EVERY 4 TO 6 HOURS NEEDED FOR DIFFICULTY BREATHING, DO NOT EXCEED 4 TIMES / DAY 18 g 3 024 2024 Discontinued metFORMIN XR (Glucophage-XR) 500 MG 24 hr tablet TAKE 2 TABLETS BY MOUTH TWICE DAILY WITH BREAKFAST AND WITH DINNER, DO NOT BREAK, CRUSH, DISSOLVE OR CHEW 025 2024 Discontinued(R eorder (will not trigger notification to Pharmacy)) levoFLOXacin (Levaquin) 250 MG tablet Take 1 tablet (250 mg) by mouth Once per day for 3 days. 3 tablet 025 2024 Active Problems Problem Noted Date Diagnosed Date [...] normal Symptoms clinically described as vertigo and [place] -Hallpike maneuver is triggering symptoms , normal [...] 44 - Diabetic eye exam: 02/17/24 [facility] Eye care. No retinopathy - Foot [...] 44 - Diabetic eye exam: 02/17/24 [facility] Eye care. No retinopathy - Foot [...] 70 - Diabetic eye exam: 02/17/24 [facility] Eye care. No retinopathy - Foot [...] 70 - Diabetic eye exam: 02/17/24 [facility] Eye care. No retinopathy - Foot [...] Metavir score F2 to F3 suggestive of bhze-de-ivuimzuh risk of developing liver fibrosis. 09/12/21 US no liver lesion Evaluated by [facility], last seen in Dec 2023 Assessment & Plan (04/29/2023 5:34 PM EDT): Hx Hep C s/p Tx 06/10/19 Abd US 1. Slightly echogenic heterogeneous liver echotexture suggestive of hepatocellular disease. No focal liver lesion seen. Wall echo shadow complex suggestive of a gallbladder filled with gallstones. 2. Elastography: Metavir score F2 to F3 suggestive of lyni-ph-uovtqyot risk of developing liver fibrosis. 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 Mejia, GI Backache 08/09/2015 Asthma 02/15/2013 Assessment & Plan (07/17/2025 5:49 AM EDT): -Pillowcase Sewer: Dr. Catherine, last seen in Nov 2023 -Most recent exacerbation on 03/03/24, seen in [facility]. Treated with prednisone burst. -01/26/24 treated [...] Assessment & Plan (04/16/2025 5:11 PM EDT): -Pillowcase Sewer: Dr. Catherine, last seen in Nov 2023 -Most recent exacerbation on 03/03/24, seen in [facility]. Treated with prednisone burst. -01/26/24 treated [...] Assessment & Plan (04/12/2024 10:11 AM EDT): -Pillowcase Sewer: Dr. Catherine, last seen in Nov 2023 -Most recent exacerbation on 03/03/24, seen in [facility]. Treated with prednisone burst. -01/26/24 treated [...] Assessment & Plan (02/28/2024 12:10 PM EDT): -Pillowcase Sewer: Dr. Catherine, last seen in Nov 2023 [...] Assessment & Plan (01/11/2024 5:39 AM EDT): -Pillowcase Sewer: Dr. Catherine, last seen in Nov 2023 [...] Assessment & Plan (12/14/2023 1:13 PM EST): -Pillowcase Sewer: Dr. Catherine, last seen in Nov 2023 -Most recent exacerbation on 11/26/23, treated with prednisone burst -Continue Advair to 500/50 one puff bid. -Continue Singulair 10 mg qhs. -Continue albuterol HFA/neb prn. -pt's symptoms improve better with a nebulizer treatment. Nebulizer was prescribed. Assessment & Plan (04/29/2023 5:35 PM EDT): -Pillowcase Sewer: Dr. Catherine, last seen May 2022 -Most [...] Encounters Date Type Department Care Team Description 07/25/2025 Telephone [facility] [address] [place] [phone] Charlotte Dickens MD 07/24/2025 3:20 PM EDT Office Visit [facility] [address] [place] [phone] Vikash Newton ANP Pleuritic pain (Primary Dx); Acute cough; Moderate persistent asthma with acute exacerbation; Primary hypertension 07/24/2025 Travel 07/24/2025 Patient Outreach [facility] [address] [place], [place] [phone] Charlotte Dickens MD Care Management (C3CM- follow up call # 1) 07/20/2025 Orders Only [facility] [address] [place] [address] [phone] Charlotte Dickens MD 07/20/2025 Results Follow-Up [facility] [address] [place] [phone] Charlotte Dickens MD POCT glycosylated hemoglobin (Hgb A1c), POCT glucose manually resulted, Culture, Urine, Routine, POCT urinalysis dipstick manually resulted 07/19/2025 Telephone [facility] [place] [address] Charlotte Dickens MD 07/17/2025 1:15 PM EDT Office Visit [facility] [place] [address] Charlotte Dickens MD Hypertension, unspecified type (Primary Dx); Dyslipidemia; Type 2 diabetes mellitus without complication, without long-term current use of insulin ([facility]); EN (obstructive sleep apnea); Moderate persistent asthma without complication; Dysuria; Encounter for immunization 07/17/2025 Travel 07/14/2025 Telephone [facility] [place] [address] Charlotte Dickens MD CHART PREP 07/11/[address] [address] Charlotte Dickens MD Appointment Request 07/07/2025 Patient Outreach [address] [address] Charlotte Dickens MD Pre-visit Planning (SDOH screening was completed on 04/27/2025) 06/29/[address] [address] Charlotte Dickens MD 06/27/2025 Travel 06/26/2025 Plan of Care Documentation [address] [phone] 06/22/2025 Patient Outreach [address] [address] Charlotte Dickens MD Care Management (C3CM- Initial assessment/enrollmen t) 06/21/2025 Patient Outreach [address] [address] Charlotte Dickens MD Care Coordination (C3 CM-W [place] Telles telephone call outreach) 06/20/2025 Refill [facility] [address] [place] [phone] Chas Angel MD Vertigo 06/19/2025 Refill [facility] [address] [place] [phone] Charlotte Dickens MD Vertigo 05/31/2025 Patient Outreach [address] [phone] Charlotte Dickens MD Care Coordination (C3 CM-[facility] Lubna Elfego telephone call outreach) 05/29/[address] [address] Antonietta Reid, PharmD 05/24/[address] [address] Antonietta Reid, PharmD 05/23/2025 Orders Only [address] [address] Charlotte Dickens MD Type 2 diabetes mellitus without complication, without long-term current use of insulin (CMS/HCC) 05/23/2025 Travel 05/15/2025 Patient Outreach [address] [address] Charlotte Dickens MD Care Management (C3CM- Initial assessment/enrollmen t) 05/12/2025 Patient Outreach [address] [address] Charlotte Dickens MD Care Coordination (C3 -[facility] Lubna Telles telephone call outreach) 05/11/2025 Orders Only [address] [address] Charlotte Dickens MD Type 2 diabetes mellitus without complication, without long-term current use of insulin (CMS/HCC) (Primary Dx); Hypertension, unspecified type; Moderate persistent asthma without complication 04/27/2025 Patient Outreach [address] [address] Charlotte Dickens MD Care Coordination 04/27/2025 Patient Outreach [address] [phone] Charlotte Dickens MD 04/27/2025 Patient Outreach [address] [address] Charlotte Dickens MD Care Coordination ([facility]- chart review) 04/27/2025 Patient Outreach [facility] [address] [place] [address] Charlotte Dickens MD from Last 3 Months Immunizations Immunization Administration [...] 12.8 oz) 07/24/2025 3:52 PM EDT Height 162.6 cm (5' 4 ) 07/17/2025 1:25 PM EDT Body Mass Index 37.21 07/17/2025 1:25 PM EDT Plan of Treatment Health Maintenance Due Date Last Done Comments CT Colonography 1967 Colonoscopy 1967 Colorectal Cancer Screening 1967 FIT DNA/Cologuard 1967 FIT 1967 FOBT 1967 Sigmoidoscopy 1967 Pap Smear 1988 Cervical Cancer Screening 1997 HPV/Cotest 1997 Eye Exam 02/05/2025 02/05/2023, 04/0 04/2023, 02/05/2023, Additional history exists COVID-19 Vaccine ( season) 2025 Influenza Vaccine (#1) 2025 , 11/22/2020, 10/24/2019, Additional history exists DTaP/Tdap/Td Vaccines (2 - Td or Tdap) 08/09/2025 08/09/2015, 03/17/2005 Diabetes: Hemoglobin A1C 10/16/2025 025, 04/17/2025, 04/12/2024, Additional history exists Diabetes: Foot Exam 04/17/2026 04/17/2025, 04/12/2024, 04/12/2024, Additional history exists Lipid Panel 04/17/2026 04/17/2025, 02/0 03/2024, 04/27/2023, Additional history exists Diabetes: Urine Protein Screening 04/18/2026 04/18/2025, 12/07/2023 SDOH Screening 04/27/2026 04/27/2025 Depression Screening 06/23/2026 06/23/2025, 06/23/20 25 Alcohol/Substance Use Screening 07/17/2026 07/17/2025 Disability Screening 07/17/2026 07/17/2025 Tobacco Screening 07/24/2026 07/24/2025 Mammogram 06/15/2027 06/15/2025, 09/16/2021 RSV Patients and Patients Aged 60 years or older (1 - 1-dose 75+ series) 2042 Hepatitis A Vaccines Completed 09/01/2016, 03/17/20 05 Hepatitis B Vaccines Completed 12/16/2016, 09/01/2016, 03/17/2005 [...] 07/24/2025 4:11 PM EDT Acute cough POCT URINALYSIS DIPSTICK Routine 07/17/2025 1:53 PM EDT Dysuria CULTURE, URINE, ROUTINE Routine 07/17/2025 1:50 PM EDT Dysuria POCT GLYCOSYLATED HEMOGLOBIN (HGB A1C) Routine 07/17/2025 1:29 PM EDT Type 2 diabetes mellitus without complication, without long-term current use of insulin ([facility]) POCT GLUCOSE Routine 07/17/2025 1:27 PM EDT Type 2 diabetes mellitus without complication, without long-term current use of insulin (CMS/HCC) BI MAMMOGRAM SCREENING TOMOSYNTHESIS BILATERAL Routine 06/15/2025 1:30 PM EDT Breast cancer screening by mammogram ALBUMIN, RANDOM URINE W/CREATININE Routine 04/18/2025 1:25 PM EDT Hypertension, unspecified type Type 2 diabetes mellitus without complication, without long-term current use of insulin (CMS/HCC) LIPID PANEL WITH REFLEX TO DIRECT LDL Routine 04/17/2025 12:52 PM EDT Dyslipidemia HIV 1/2 ANTIGEN/ANTIBODY, FOURTH GENERATION W/RFL Routine 09/10/2022 11:22 AM EST from Last 3 Months or Most Recently Relevant to Health Maintenance Results * XR Chest 2 Views (07/25/2025 11:50 AM EDT) Anatomical Region Laterality Modality Chest Radiographic Barby ging 07/25/2025 11:5 0 AM EDT Narrative 07/25/2025 12:03 [place] [address] XRay Report Signed Patient: Jacqui Russo MR#: [id number] : 1965 Acct:[id number] Age/Sex: 59 / F ADM Date: 07/25/25 Loc: HO.HHCX Attending Dr: Vikash Newton NP Ordering Physician: VIKASH NEWTON NP Date of Service: 07/25/25 Procedure(s): XR chest 2V Accession Number(s): [id number] cc: VIKASH NEWTON NP; Charlotte Dickens MD [...] Ambrocio Ornelas MD 07/25/2025 12:01 PM EDT RP Dictated By: Ambrocio Ornelas MD Signed By: <Electronically signed by Ambrocio Ornelas MD in OV> 07/25/25 1201 DD/ 1150 TD/TT: 07/25/25 115 Motion Picture Cameraman: Procedure Note Donotuseinterpreter, Image - 07/25/[address] [address] XRay Report Signed Patient: Jaqui Russo#: [id number] : 1965Acct:[id number] Age/Sex: 59 / FADM Date: 07/25/25 Loc: HO.HHCX Attending Dr: Vikash Newton NP Ordering Physician: VIKASH NEWTON NP Date of Service: 07/25/25 Procedure(s): XR chest 2V Accession Number(s): [id number] cc: VIKASH NEWTON NP; Charlotte Dickens MD [...] Ambrocio Ornelas MD 07/25/2025 12:01 PM EDT RP Dictated By: Ambrocio Ornelas MD Signed By: <Electronically signed by Ambrocio Ornelas MD in OV> 07/25/25 1201 DD/ 1150 TD/TT: 07/25/25 115 Motion Picture Cameraman: Vikash Newton ANP IMG XR PROCEDURES Final Result * Influenza B (ID NOW Rapid Molecular) (07/24/2025 4:11 PM EDT) Pathologist [facility] [place] Influenza B Negative Negative, Indeterminate [facility] Swab 07/24/2025 4:11 PM EDT Vikash Newton ANP POINT OF CARE TEST ENTER/EDIT OR DERABLES Final Result Performing Organization Address [facility] Co de Phone Number [facility] [address] [place] [phone] * Influenza A (ID NOW Rapid Molecular) (07/24/2025 4:11 PM EDT) Pathologist [facility] [place] Influenza A Negative Negative, Indeterminate [facility] Swab 07/24/2025 4:11 PM EDT Vikash Newton ANP POINT OF CARE TEST ENTER/EDIT OR DERABLES Final Result Performing Organization Address [facility] Co de Phone Number [facility] [address] [place] [phone] * POCT Rapid COVID Ag (07/24/2025 4:11 PM EDT) [facility] Rapid COVID Ag Negative [facility] Swab 07/24/2025 4:11 PM EDT Vikash STUART POINT OF CARE TEST ENTER/EDIT OR DERABLES Final Result Performing Organization Address [facility] Co de Phone Number [facility] [address] [place] [phone] * POCT urinalysis dipstick manually resulted (07/17/2025 1:53 PM EDT) Pathologist [facility] [place] Color, UA Yellow Clarity, UA Clear Glucose, [...] TEST ENTER/EDIT OR DERABLES Final Result * Culture, Urine, Routine (07/17/2025 1:50 PM EDT) Urine Urine specimen obtained by clean catch procedure / Unknown 07/17/2025 1:50 PM EDT 07/17/2025 5:42 PM EDT Comment:[facility] Narrative [facility] - 07/20/2025 8:05 AM EDT Proteus mirabilis Quant > 100,000 cfu/mL Proteus mirabilis: Ampicillin >=32(R) Proteus mirabilis: Cefazolin (Urine) 8(S) Proteus mirabilis: Cefepime 2(S) Proteus mirabilis: Ceftriaxone <=0.25(S) Proteus mirabilis: Ciprofloxacin <=0.06(S) Proteus mirabilis: Gentamicin <=1(S) Proteus mirabilis: Nitrofurantoin 64(R) Proteus mirabilis: Trimethoprim/Sulfamethoxazole >=320(R) Specimen Source: Urine clean catch Charlotte Dickens MD LAB MICROBIOLOGY - GENERAL ORDER AZUL Final Result [facility] [address] [place] [phone] * (ABNORMAL) POCT glycosylated hemoglobin (Hgb A1c) [...] Media Lot # [id number] Lot# Expiration Date ,828,666 Blood Capillary blood specimen / Unknown 07/17/2025 1:27 PM EDT Charlotte Dickens MD POINT OF CARE TEST ENTER/EDIT OR DERABLES Final Result * BI Mammogram Screening Tomosynthesis Bilateral (06/15/2025 1:30 PM EDT) Anatomical Region Laterality Modality Breast Bilateral Mammography 06/15/2025 1:30 PM EDT Narrative 06/20/2025 1:59 PM EDT [facility] [place] [address] Mammography Report Signed Patient: Jacqui Russo MR#: [id number] : 1965 Acct:[id number] Age/Sex: 59 / F ADM Date: 06/15/25 Loc: PollyMAMMO Attending Dr: Charlotte Dickens MD Ordering Physician: Charlotte Dickens MD Results: 1Negative Date of Service: 06/15/25 Follow Up: 1 Year From [facility] Mammogram Procedure(s): MM tomosynthesis screening BI Accession Number(s): [id number] cc: Charlotte Dickens MD EXAMINATION: MM SCREENING [...] Meredith Lacy DO 06/20/2025 01:57 PM EDT RP Dictated By: Meredith Lacy DO Signed By: <Electronically signed by Meredith Lacy DO in OV> 06/20/25 1355 DD/ 1330 TD/TT: 06/15/25 1404 Motion Picture Cameraman: Procedure Note Donotuseinterpreter, Image - 06/20/20[facility] [address] [place] [address] Mammography Report Signed Patient: Jacqui RussoMR#: [id number] : 1965Acct:[id number] Age/Sex: 59 / FADM Date: 06/15/25 Loc: PollyMAMMO Attending Dr: Charlotte Dickens MD Ordering Physician: Charlotte Dickens MDResults: 1Negative Date of Service: 06/15/25Follow Up: 1 Year From [facility] Mammogram Procedure(s): MM tomosynthesis screening BI Accession Number(s): [id number] cc: Charlotte Dickens MD EXAMINATION: MM SCREENING [...] Meredith Lacy DO 06/20/2025 01:57 PM EDT RP Dictated By: Meredith Lacy DO Signed By: <Electronically signed by Meredith Lacy DO in OV> 06/20/25 1357 DD/ 1330 TD/TT: 06/15/25 1404 Motion Picture Cameraman: us Charlotte Dickens MD IMG BI PROCEDURES Final Result * Albumin, Random Urine W/Creatinine (04/18/2025 1:25 PM EDT) Creatinine, Urine 102.75 mg/dL [facility] Microalbumin Urine 20.0 mg/L [facility] Microalbum Creatinine Ratio Ur 19.4 <30 ug/mg cr [facility] Comment:Albumin/Creatinine R atio Reference Ranges: Normal: < 30 ug/mg creatinine Microalbuminuria: 30 - 300 ug/mg creatinineClinical Albuminuria: > 300 ug/mg creatinine Urine 04/18/2025 1:25 PM EDT 04/18/2025 4:05 PM EDT Charlotte Dickens MD LAB URINE ORDERABLES Final Resul t [facility] [address] [place] [phone] * (ABNORMAL) Lipid Panel with Reflex to Direct LDL (04/17/2025 12:52 PM EDT) Triglycerides 186(H) <150 mg/dL [facility] Comment:Desirable Triglyceri de: less than 150 mg/dLBorderline High Triglyceride 150-199 mg/dLHigh Triglyceride: 200-499 mg/dLVery High Triglyceride: greater than or equal to 5OO mg/dL Cholesterol 203(H) <200 mg/dL [facility] Comment:Desirable Cholestero l: less than 200 mg/dLBorderline High Cholesterol: 200-239 mg/dLHigh Cholesterol: greater than 239 mg/dL LDL Cholesterol Calculated 122(H) <100 mg/dL [facility] Comment:Desirable LDL: less than 100 mg/dLNear Optimal/Above Optimal LDL: 110- 129 mg/dLBorderline High LDL: 130-159 mg/dLHigh LDL: 160-189 mg/dLVery High LDL: greater than or equal to 190 mg/dL HDL Cholesterol 44 >40 mg/dL [facility] Comment:Desirable HDL: great er than 40 mg/dL Note: This HDL assay may give artificially low results in patients with liver disease. Blood 04/17/2025 12:5 2 PM EDT 04/17/2025 4:10 PM EDT us Charlotte Dickens MD LAB BLOOD ORDERABLES Final Resul t [facility] [address] [place] [phone] * HIV 1/2 ANTIGEN/ANTIBODY,FOURTH GENERATION W/RFL [...] purpose. For additional information please refer to http://education.[employer]/faq/VBL155 (This link is being provided for informational/ educational purposes only.) The performance of this assay has not been clinically validated in patients less than 2 years old. 09/10/2022 11:2 2 AM EST Charlotte Dickens MD LAB BLOOD ORDERABLES Final Resul t [facility] from Last 3 Months or Most Recently Relevant to Health Maintenance Insurance [address] [place], [place] [address] C3 Care Teams Speeder Worker Relationship Specialty Start Date End Date Charlotte Dickens MD [address] [place] [phone] PCP - General Family Medicine 05/19/14 Alex Ruby, RN [address] [place] [phone] Registered Nurse Family Medicine 04/27/25 Lubna Telles 04/27/25 Antonietta Reid, PharmD [address] [place] [phone] Pharmacist Pharmacy 05/24/25
--- OUTSIDE RECORDS SUMMARY | 2025-07-25 14:29 | XMS_ITS | Encounter Summary ---
Author Organization [employer] Address [address] [facility] [address]t [place] [address] Care Team Providers Care Director Digital Advertising Name Role Phone Charlotte iDckens MD Primary Care Provider [phone] Alex Ruby RN Unavailable [phone] [place] Telles Unavailable Antonietta Reid PharmD Unavailable [phone] Reason for Referral * Imaging (Routine) - Closed Specialty Diagnoses / Procedures Referred By Inez elias Referred To Contact Radiology Diagnoses Elevated AFP Transaminitis Procedures US Abdomen Complete Charlotte Dickens MD [address] [place] [address] Phone: tel: fax: [address] Phone: tel: fax: Referral ID Status Reason Start Date Expiration Date Visits Re quested Visits Authorized [id number] Closed 04/29/2023 04/28/2024 1 1 Encounter Details Date Type Department Care Team (Late st Contact Info) Description 04/29/2023 Orders Only [facility] [address] [place] [address] [phone] Charlotte Dickens MD [address] [place], [place] [phone] Elevated AFP (Primary Dx); Transaminitis Social History [...] as of this encounter Plan of Treatment Scheduled Orders Name Type Priority Associated Diagnoses [...] as of this encounter Care Teams Director Digital Advertising Relationship Specialty Start Date End Date Charlotte Dickens MD [address] [place] [address] PCP - General Family Medicine 05/19/14 Alex Ruby, RN [address] [place] [phone] Registered Nurse Family Medicine 04/27/25 Lubna Telles 04/27/25 Antonietta Reid, Mary Anne [address] [place] [phone] Pharmacist Pharmacy 05/24/25 documented as of this encounter
--- OUTSIDE RECORDS SUMMARY | 2025-07-25 14:29 | XMS_ITS ---
Author Organization [employer] Address [address] [facility] [address] [place] [address] Care Team Providers Care Hospice Volunteer Coordinator Name Role Phone Charlotte Dickens MD Primary Care Provider Alex Ruby RN Unavailable [phone] [place]na Telles Unavailable Antonietta Reid PharmD Unavailable [phone] CM Complex Status:Enrolled (Active) Start date:04/27/2025 Enrollment date:06/22/2025 Enrollment reason:Referred by provider Overview Provider Referral- pt misses many appts. Not adherent to treatment. Low medical literacy. Getting false health facts from the media or people. Case Team Name Relationship Phone Alex Ruby RN(Responsible Staff) Registered Marivel sweeney [phone] Continued Care and Services Coordination
--- OUTSIDE RECORDS SUMMARY | 2025-07-25 14:29 | XMS_ITS | Encounter Summary ---
Author Organization [employer] Address [address] [facility] 7t [place] [address] Care Team Providers Care Vat Operator Name Role Phone Charlotte Dickens MD Primary Care Provider [phone] Alex Ruby RN Unavailable [phone] Lubna Telles Unavailable Antonietta Reid PharmD Unavailable [phone] Reason for Visit * Reason Comments Med Refill Encounter Details Date Type Department Care Team (Late st Contact Info) Description 12/23/[address] [facility] [address] [place], [place] [phone] Chas Angel MD [address] [place], [place] [phone] Vertigo Social History Tobacco Use Types Packs/Day Years Used Date Smoking Tobacco: Never Passive Smoke Exposure: Never Smokeless Tobacco: Never Depression Answer Date Recorded Patient Health Questionnaire-9 Score 0 04/12/2024 Patient Health Questionnaire-9 Score 0 04/12/2024 Last PHQ-9: Questionnaire Data Not on file 0 04/12/2024 Housing Stability Answer Date Recorded What is your housing situation today? I have shyae betancourt 11/28/[address] you [...] documented as of this encounter Care Teams Vat Operator Relationship Specialty Start Date End Date Charlotte Dickens MD [address] [place] [address] PCP - General Family Medicine 05/19/14 Alex Ruby, RN [address] [place] [id number] Registered Nurse Family Medicine 04/27/25 Lubna Telles 04/27/25 Antonietta Reid, Mary Anne [address] [place] [address] Pharmacist Pharmacy 05/24/25 documented as of this encounter
--- OUTSIDE RECORDS SUMMARY | 2025-07-25 14:29 | XMS_ITS | Encounter Summary ---
Author Organization [employer] Address [address] [facility] 7t [place] [address] Care Team Providers Care Business Risk Analyst Name Role Phone Charlotte Dickens MD Primary Care Provider [phone] Alex Ruby RN Unavailable [phone] Lubna Telles Unavailable Antonietta Reid PharmD Unavailable [phone] Reason for Visit * Reason Comments Care Management C3CM- follow up call # 1 Encounter Details Date Type Department Care Team ([facility] st Contact Info) Description 07/24/2025 Patient Outreach [facility] [address] [place], [place] [phone] Charlotte Dickens MD [address] [place] [phone] Care Management (C3CM- follow up call # 1) Social History Tobacco Use Types Packs/Day Years [...] the past 12 months, has t he [employer], gas, oil or water company threatened to [...] AM EDT documented as of this encounter Progress Notes * Alex Ruby RN - 07/24/2025 11:04 AM EDT MONSERRAT Ruby RN placed outbound call to patient. Patient's name, and address confirmed. Patient states is doing well with no recent illnesses or emergency room visits. Patient reports that physical appointment with PCP on 07/17/25 went well. Patient reports controlled BP and BS levels. Patient reports medication compliance, denies any side effects or need for refills. Patient reports currently dealing with asthma and is using her inhalers and nebulizer machine with relief. CM advised to seek the ER if asthma does not improve with inhaler and nebulizer. Patient reports that she rescheduled her urology appointment. No further questions or concerns. CM reinforced direct contact information for any additional questions or concerns. Education provided on Walk-In Ur[facility] Care located in [facility]. Patient provided with after-hours line for [facility], , which offer night time triage service and option to transfer to rn observation provider if needed. 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 A follow up call will be placed within 10 days, patient agrees with plan. documented in this encounter Plan of Treatment Not on file documented as of this encounter Visit Diagnoses Not on filedocumented in this encounter Additional Health Concerns Assessment Noted Time PHQ-9 Depression Total Score: 7 06/23/20 2:13 PM EDT documented as of this encounter Care Teams Business Risk Analyst Relationship Specialty Start Date End Date Charlotte Dickens MD [address] [place] [phone] PCP - General Family Medicine 05/19/14 Alex Ruby, RN [address] [place] [address] Registered Nurse Family Medicine 04/27/25 Lubna Telles 04/27/25 Antonietta Reid, PolyD [address] [place] [id number] Pharmacist Pharmacy 05/24/25 documented as of this encounter
== END 2025-07-25 11:35 | disposition home or self-care (01) ==
LOC: HO.HHCX 11:34
PROVIDERS: PCP Family Medicine; Visit Provider Nurse Practitioner Primary Care
DX: R07.81 Pleurodynia (principal)
CPT/HCPCS: 71046

== ENCOUNTER → 2025-07-25 11:37 | Outpatient (BNV) | payer MEDICAID, SELFPAY | PROVIDERS: PCP Family Medicine; Visit Provider Radiology Diagnostic Radiology | DX: R07.81 Pleurodynia (principal) | CPT/HCPCS: 71046 ==

== ENCOUNTER 2025-08-29 10:51 | Outpatient (AMB) | payer MEDICAID, SELFPAY ==
--- NOTE | 2025-08-29 10:58 | A.OFFVIS_ITS ---
Intake Visit Reasons: History of recurrent UTI Intake Note: patient presents today for: new pt hx of uti urology medications: none blood thinners: none smoker: Acoustic Warfare Analyst Required: No Acoustic Warfare Analyst Name: yari Stevenson Accompanied by: Self / Same As Patient Allergies prochlorperazine (From Compazine) Allergy (Verified 08/29/25 11:28) Anaphylaxis nitrofurantoin Adverse Reaction (Unknown, Verified 08/29/25 11:28) nausea and vomiting From COMPAZINE Allergy (Unknown, Uncoded 08/29/25 11:28) ANAPHYLAXIS Medication List - Last Reconciled 08/29/25 by EROS Patton acetaminophen (Tylenol Extra Strength) 1,000 mg (2 x 500 mg) PO Q8H PRN albuterol sulfate 90 mcg/actuation (ProAir HFA) 2 puffs PO Q4-6H PRN albuterol sulfate 90 mcg/actuation (Ventolin HFA) 2 puffs inhalation Q4-6H PRN benzonatate 100 mg PO TID PRN cetirizine 10 mg PO DAILY estradiol 0.01%(0.1mg/gram) Pea-sized amount to urethra daily x1 month and then 3 times per week thereafter 90 days fluticasone propion-salmeterol 500-50 mcg/dose (Advair Diskus) 1 ea inhalation fluticasone propion-salmeterol 500-50 mcg/dose (Advair Diskus) 1 ea inhalation BID fluticasone propionate 50 mcg/actuation 1 spray intranasal DAILY furosemide 60 mg (1.5 x 40 mg) PO DAILY ibuprofen 600 mg PO Q6H PRN lidocaine 5% patches topical lisinopril 10 mg PO DAILY loratadine 10 mg PO DAILY losartan 25 mg PO QAM meclizine 25 mg PO TID PRN metformin ER 500 mg PO metformin ER 500 mg PO BID mometasone 0.1% topical QAM montelukast 10 mg PO DAILY montelukast 10 mg PO BEDTIME peg 3350-electrolytes 236-22.74-6.74 -5.86 gram (Golytely) 240 mL PO Q10M HPI Comments Details: Nancy is a very pleasant 59-year-old Lithuanian-speaking female patient of Dr. Dickens. She has a past medical history of anxiety, type 2 diabetes, asthma, obesity, and constipation. She presents to the office today as a new patient for recurrent urinary tract infections. In discussion with the patient today she reports having experience to urinary tract infections since earlier this year and has been experiencing bladder pressure status post treatment of her infections. She reports having followed up with her PCP at which time recommendations were made for urology referral for further assessment evaluation. In review of patient's chart it appears urine cultures are as follows: 07/27 Proteus mirabilis In office urinalysis results reviewed with the patient today. Negative nitrates negative leukocytes. PH 5.5. We did discussed the importance of adequate hydration relation to infections as well as lower urinary tract symptoms. We discussed obtaining retroperitoneal ultrasound for further assessment evaluation. We also discussed correlation of constipation with recurrent urinary tract infections. All questions were answered. She denies urinary urgency, urinary frequency, incontinence, nocturia, hematuria, dysuria, foul smelling urine, changes to urinary stream, flank pain, fever, and or chills. We also discussed the importance of management and diabetes for improvement in urological health as well as overall health and well-being. [facility] Medical History Anxiety Insulin dependent type 2 diabetes mellitus Asthma Diabetes Porcelain gallbladder Asthma Morbid obesity Left flank pain Surgical History (Updated 05/24/25 @ 14:18 by Daniela Cerrato) Hx of section History of tubal ligation H/O section Family History Mother Ovarian cancer Maternal Grandfather Throat cancer Social History (System 05/24/25 @ 14:18 by Daniela Cerrato) Household Members: Children Housing: Apartment Do you presently have visiting nurse or other home services: No Alcohol intake: never Patient Tobacco Use Status: Never used Tobacco service: No Current occupational status: employed 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 Review of Systems Const All systems reviewed & are unremarkable except as noted in HPI and below Physical Exam Const General: cooperative, healthy appearing, comfortable, no acute distress, well developed, alert and awake Nutritional Appearance: overweight Orientation/consciousness: patient oriented x3 Limitations: language barrier HEENT Head: Yes normal to inspection, Yes normocephalic and Yes atraumatic Ears: hearing grossly normal bilaterally Eyes General: appearance normal, both eyes and all related structures Neck Neck: Yes normal visual inspection and Yes trachea midline Chest Chest palpation & inspection: normal inspection of the chest Resp Effort & Inspection: normal respiratory effort and able to speak in complete sentences Cardio Rate: regular rate GI Inspection: Yes normal to inspection General: Yes no CVA tenderness Back/Spine/Pelvis Back: no CVA tenderness Skin General skin exam: no rashes or lesions noted Neuro General: patient oriented x3 Extrem General: Yes normal to inspection Psych Appearance: grossly normal and well kempt Mental Status: mental status grossly normal Speech and movement: Normal speech and movement present and Clear speech present Affect: normal affect Attitude: cooperative Thought process: Normal thought process present Thought content: Normal thought content present Insight: Fair insight present (Psych) Judgement: Fair judgement present (Psych) Results AMB Urinalysis, Automated UA Leukoctes 0 Maryanne/uL Last Edit by MARIUM Huang on 08/29/25 11:08 UA Nitrite Last Edit by MARIUM Huang on 08/29/25 11:08 UA Urobilinogen 0.2 mg/dL Last Edit by MARIUM Huang on 08/29/25 11:0 8 UA Protein 0 mg/dL Last Edit by MARIUM Huang on 08/29/25 11:08 UA pH 5.5 Last Edit by MARIUM Huang on 08/29/25 11:08 UA Blood 10 Con/uL Last Edit by MARIUM Huang on 08/29/25 11:08 UA Specific [place] 1.020 Last Edit by MARIUM Huang on 08/29/25 11: 08 UA Ketone Last Edit by MARIUM Huang on 08/29/25 11:08 UA Bilirubin 0 mg/dL Last Edit by MARIUM Huang on 08/29/25 11:08 UA Glucose 0 mg/dL Last Edit by MARIUM Huang on 08/29/25 11:08 Results Reviewed Results Reviewed: Laboratory Last Values Urine pH (Auto) 5.5 08/29/25 11:08 Specific [place] (Auto) 1.020 08/29/25 11:08 Urine Protein (Auto) 0 mg/dL 08/29/25 11:08 Glucose (UA)(Auto) 0 mg/dL 08/29/25 11:08 Urine Blood (Auto) 10 Con/uL 08/29/25 11:08 Urine Bilirubin (Auto) 0 mg/dL 08/29/25 11:08 Urine Urobilinogen (Auto) 0.2 mg/dL 08/29/25 11:08 Leukocyte Esterase (Auto) 0 Maryanne/uL 08/29/25 11:08 Assessment & Plan Assessment & Plan (1) Recurrent UTI: Code(s): N39.0 - Urinary tract infection, site not specified Category: Medical Plan In office urinalysis results reviewed with the patient today; as noted above; w ill send for urine cytology. We did discussed potential causes of urinary tract infections as well as bladder pressure We did discussed the importance of adequate hydration relation urinary tract in fections as well as overall health and well-being. Will obtain retroperitoneal ultrasound for further assessment evaluation. Start Estrace cream as discussed and prescribed. We discussed importance of management and diabetes for improvement in urological health as well as overall health and well-being. All questions were answered. Follow-up in 1-3 months with imaging to be completed prior and PVR at next office visit; or sooner with any issues, concerns, and or questions. Orders: Orders AMB Urinalysis Automated Today Z13.9 - Encounter for screening, unspecified US retroperitoneal comp Today N39.0 - Urinary tract infection, site not specified Urine Cytology Today N39.0 - Urinary tract infection, site not specified Medications: New estradiol 0.01%(0.1mg/gram) Pea-sized amount to urethra daily x1 month and then 3 times per week thereafter 42.5 grams 2RF 90 days Patient Instructions: The patient had an opportunity to ask questions regarding the treatment plan. All questions were answered. Physical exam, labs, and imaging were discussed and reviewed in detail. As well as risks, benefits, and discussion of treatment choices. No major barriers to understanding were identified. The patient expressed understanding and agreement with the above treatment plan. The patient was made aware they should contact our office by phone for worsening of their current condition, the appearance of new symptoms, or with any questions or concerns. Compliance is encouraged with any medications and follow up testing that is ordered. It is a privilege to be allowed the opportunity to participate in? your urological care.? Again, if you have any questions or concerns If you have any questions or concerns please do not hesitate to contact me. The office is [phone]. This note is constructed using voice recognition software. While every effort has been made to ensure accuracy sheriff officer errors may have been included. Yours sincerely, JALEESA Patton-JUANPABLO Coding Level of Care Code New Pt Level 4 (67203) Diagnoses Recurrent UTI N39.0
--- OUTSIDE RECORDS SUMMARY | 2025-08-29 13:55 | XMS_ITS | Data Portability ---
Author Organization [place] - [facility], Allergy Address [address] [facility] 100 [place] [address] Care Team Providers Care Card Lacer Jacquard Name Role Phone MARIAH CUELLAR Primary Care Provider Assessment Encounter Date Assessment Date Assessment LastModified by Organization Details LastModified Time 05/31/2025 05/31/2025 Patient describe s swelling and tenderness along the left neck near the angle of mandible. On examination when I palpated her sternocleidomastoid she indicated that was the specific area of tenderness. She is likely experiencing some muscle tension which may respond well to warm compress, gentle massage and use of acetaminophen. She is not able to take ibuprofen given her renal status. She does not have any palpable lymphadenopathy or any symptoms or findings to suggest salivary gland pathology. No odontogenic source of infection on examination. [email or web address] Not available 05/31/2025 14:28:00 Plan of Treatment Reminders Order Date Submit Date Provider Last Modified By Organization Details Last Modified Time Details Appointments None record ed. Lab None record ed. Referral None record ed. Procedures None record ed. Surgeries None record ed. Imaging None record ed. Medication Orders None record ed. Patient TargetsNo targets recorded. Patient InstructionsNo instructions recorded. Reason for Referral None Reported. Problems Name Problem SNOMED Code Status Onset Date Resolution Date Notes Provider Name and Address Organization Details Recorded Time Strain of neck muscle 629838540 Active 025 GÉNESIS WHYTE MD 100 [facility] 100, [facility] [place], [address] , [place] - [facility] 05/31/2025 14:26:56 Problem Notes None recorded. Medical Equipment None Reported. Allergies Allergen ID Allergen Name Allergen Category Reaction Reaction Severity Criticality Documentation Date Start Date Code Code System Note Provider Name and Address Organization Details Recorded Time 284851 Compazine medicatio n Not available Not available Not available 05/31/202582390 6 RxNorm KEKE hilliard [place] - [facility] 5 14:01:14 Medications Name Sig Start Date Stop Date Status Note LastModified by Organization Details LastModified Time losartan 50 mg tablet TAKE 1 TABLET BY MOUTH EVERY MORNING active Not Available Not Available No t Available prednisone 10 mg tablet TAKE 4 TABLETS DAILY FOR 3 DAYS, TAKE 3 TABLETS DAILY FOR 3 DAYS, TAKE 2 TABLETS DAILY FOR 3 DAYS, TAKE 1 TABLET DAILY FOR 3 DAYS 05/31 completed Not Available Not Available Not Available tizanidine 2 mg tablet TAKE 1 TABLET BY MOUTH EVERY 6 HOURS NEEDED FOR MUSCLE SPASMS FOR UP TO 7 DAYS active Not Available Not Available No t Available atorvastati n 10 mg tablet TAKE 1 TABLET BY MOUTH EVERY DAY 05/31 completed Not Available Not Available Not Available sulfamethox azole 800 mg-trimetho prim 160 mg tablet TAKE 1 TABLET BY MOUTH TWICE DAILY FOR 3 DAYS 05/31 completed Not Available Not Available Not Available meclizine 25 mg tablet TAKE 1 TABLET BY MOUTH EVERY 6 HOURS NEEDED FOR DIZZINESS 05/31 completed Not Available Not Available Not Available benzonatate 100 mg capsule TAKE 1 CAPSULE BY MOUTH THREE TIMES DAILY NEEDED FOR COUGH 05/31 completed Not Available Not Available Not Available lidocaine 5 % topical patch APPLY 1 PATCH TOPICALLY TO SKIN, LEAVE ON FOR 12 HOURS AND OFF FOR 12 HOURS DIRECTED active Not Available Not Available No t Available losartan 25 mg tablet TAKE 1 TABLET BY MOUTH EVERY MORNING active Not Available Not Available No t Available montelukast 10 mg tablet TAKE 1 TABLET BY MOUTH EVERY DAY AT BEDTIME active Not Available Not Available No t Available cefuroxime axetil 500 mg tablet TAKE 1 TABLET BY MOUTH TWICE DAILY UNTIL FINISHED 05/31 completed Not Available Not Available Not Available ondansetron 4 mg disintegrat ing tablet DISSOLVE 1 TABLET ON TONGUE EVERY 8 HOURS NEEDED FOR NAUSEA AND VOMITING active Not Available Not Available No t Available metformin ER 500 mg tablet,exte nded release 24 hr TAKE 2 TABLETS BY MOUTH TWICE DAILY WITH BREAKFAST AND WITH DINNER, DO NOT BREAK, CRUSH, DISSOLVE OR CHEW active Not Available Not Available No t Available doxycycline hyclate 100 mg tablet TAKE 1 TABLET BY MOUTH TWICE DAILY UNTIL FINISHED 05/31 completed Not Available Not Available Not Available Ventolin HFA 90 mcg/actuati on aerosol inhaler INHALE 2 PUFFS BY MOUTH EVERY 4 TO 6 HOURS NEEDED FOR DIFFICULT Y BREATHING . DO NOT EXCEED FOUR TIMES DAILY. active Not Available Not Available No t Available Alcohol Prep Pads USE DIRECTED TO TEST BLOOD SUGAR THREE TIMES DAILY active Not Available Not Available No t Available albuterol sulfate active Not Available Not Available Not Available Advair HFA active Not Available Not Av ailable Not Available FreeStyle Lite Strips USE TO TEST BLOOD SUGAR ONCE DAILY active Not Available Not Available No t Available Lantus Solostar U-100 Insulin 100 unit/mL (3 mL) subcutaneou s pen INJECT 10 UNITS SUBCUTANE OUSLY AT BEDTIME active Not Available Not Available No t Available FreeStyle [place] Lite kit USE ONCE DAILY TO TEST BLOOD SUGAR active Not Available Not Available No t Available diclofenac 1 % topical gel APPLY 2 GRAMS TO AFFECTED AREA(S) 4 TIMES A DAY IN THE MORNING, AT NOON, IN THE EVENING, AND AT BEDTIME NEEDED FOR PAIN FOR UP TO 7 DAYS 05/31 completed Not Available Not Available Not Available blood pressure kit-extra large cuff USE TO CHECK BLOOD PRESSURE ONCE DAILY AND NEEDED active Not Available Not Available No t Available BD Ultra-Fine Noemy Pen Needle 32 gauge x 5/32 USE DIRECTED active Not Available Not Available No t Available TRUEplus Lancets 33 gauge USE DIRECTED TO TEST BLOOD SUGAR THREE TIMES DAILY active Not Available Not Available No t Available Tresiba FlexTouch U-100 insulin 100 unit/mL (3 mL) subcutaneou s pen INJECT 10 UNITS SUBCUTANE OUSLY ONCE DAILY active Not Available Not Available No t Available Vitals Date Recorded Body height Body mass index (BMI) Body weight Provider Name and Address Organization Details Last Updated DateTime 05/31/2025 162.56 cm 37.6 kg/m2 97598.73 g KEKE MEDRANO [place] - [facility] 05/31/2025 13:58:59 Social History None recorded. Functional Status None recorded. Mental Status None recorded. Family History Nothing Reported. Medical History Condition Response Anemia Y Migraines Y Arthritis Y Hypertension Y Anxiety Y Asthma Y Gynecological HistoryNo gynecological history recorded. Obstetrics History GPAL:G 0 P 0 0 0 0 Past Encounters Encounter ID Performer Location Encounter Start Date Encounter Closed Date Diagnosis/Indication Diagnosis SNOMED-CT Code Diagnosis ICD10 Code Diagnosis IMO Codes Diagnosis Note [id number] GÉNESIS WHYTE MD [facility] [address] [place] [address] 05/31/2025 13:41:41 05/31/2025 14:39:06 Strain of neck muscle 062439829 S16.1XXA 6500541 Health Concerns Section Related Observation LastModified by Organization Detai ls LastModified Time None Recorded Concern Status LastModified by Organization Details LastModified Time None Recorded Advance Directives Directive None Recorded Payers Insurance Date Sequence Insurance Name Policy Number Policy Mak Covered Member ID Mak Member ID Guarantor Name 05/31/2025 1 [place] [facility] Jacqui Karan [id number] Jacqui Russo Notes Date Note Type Note Provider Name and Address Organization Details Recorded Time 05/31/2025 text/html ROS as noted in the HPI IPad Spanishneck swellingescorted by daughterfeels swelling on left neck near mandibledoes not seem to relate to when eating 11/18/22 [facility], [place] w bx left base of tonguepath - benign, reactive process GÉNESIS WHYTE MD [address] [place] [address], [id number], [place] - [facility] 05/31/2025 14:28:15 OBGyn Episode No OBEpisode recorded.
== END 2025-08-29 11:45 | disposition home or self-care (01) ==
LOC: HO.HUSH 10:51
PROVIDERS: PCP Family Medicine; Visit Provider Nurse Practitioner Family
DX: N39.0 Urinary tract infection, site not specified (principal); Z13.9 Encounter for screening, unspecified
CPT/HCPCS: 99204

== ENCOUNTER 2025-08-29 10:51 | Outpatient (REF) | payer MEDICAID, SELFPAY ==
--- OUTSIDE RECORDS SUMMARY | 2025-08-29 14:54 | XMS_ITS | Encounter Summary ---
Author Organization [email or web address] Address [address] [facility] 7t [place] [address] Care Team Providers Care Lead Technologist In Cytogenetics Name Role Phone Charlotte Dickens MD Primary Care Provider [phone] Alex Ruby RN Unavailable [phone] Lubna Telles Unavailable Antonietta eRid PharmD Unavailable [phone] Reason for Visit * Reason Onset Date Comments Appointment Request 11/03/2023 Encounter Details Date Type Department Care Team (Late st Contact Info) Description 11/03/2023 Telephone [facility] [address] [place], [place] [phone] Charlotte Dickens MD [address] [place], [place] [phone] Appointment Request Social History Tobacco Use Types [...] Miscellaneous Notes * Telephone Encounter - Earlene Aldana Galvez - 11/03/2023 1:44 PM EST Tc from pt requesting an appt with provider. States provider advice this. Please contact Pt @ [phone] documented in this encounter Plan of Treatment Upcoming Encounters Date Type Department Care Team (Late st Contact Info) Description 12/15/2025 9:30 AM EST Office Visit [facility] [address] [place] [address] Shon, Fauzia, OD [address] [place] [address] documented as of this encounter Visit Diagnoses Not on filedocumented in this encounter Additional Health Concerns Assessment Noted Time PHQ-9 Depression Total Score: 0 04/27/20 23 3:33 PM EDT documented as of this encounter Care Teams Lead Technologist In Cytogenetics Relationship Specialty Start Date End Date Charlotte Dickens MD [address] [place] [address] PCP - General Family Medicine 05/19/14 Alex Ruby, RICHIE [address] [place] [address] Registered Nurse Family Medicine 04/27/25 Lubna Telles 04/27/25 Antonietta Reid, PharmD [address] [place] [address] Pharmacist Pharmacy 05/24/25 documented as of this encounter
--- OUTSIDE RECORDS SUMMARY | 2025-08-29 14:54 | XMS_ITS | Encounter Summary ---
Author Organization [employer] Address [address] [facility] 7t [place] [address] Care Team Providers Care Mine Development Engineer Name Role Phone Charlotte Dickens MD Primary Care Provider [phone] Alex Ruby RN Unavailable [phone] Lubna Telles Unavailable Antonietta Reid PharmD Unavailable [phone] Reason for Referral * Imaging (Routine) - Closed Specialty Diagnoses / Procedures Referred By Inez elias Referred To Contact Radiology Diagnoses Elevated AFP Transaminitis Procedures US Abdomen Complete Charlotte Dickens MD [address] [place] [address] Phone: tel: fax: [address] Phone: tel: fax: Referral ID Status Reason Start Date Expiration Date Visits Re quested Visits Authorized [id number] Closed 04/29/2023 04/28/2024 1 1 Encounter Details Date Type Department Care Team (Late st Contact Info) Description 04/29/2023 Orders Only [facility] MEDICINE [address] [place] [address] [phone] Charlotte Dickens MD [address] [place], [place] [phone] Elevated AFP (Primary Dx); Transaminitis Social History [...] Description 12/15/2025 9:30 AM EST Office Visit [facility] OPTOMETRY [address] [place], [place] [phone] Shon, Fauzia, OD [address] [place] [address] Scheduled Orders Name Type Priority Associated Diagnoses [...] documented as of this encounter Care Teams Mine Development Engineer Relationship Specialty Start Date End Date Charlotte Dickens MD [address] [place] [address] PCP - General Family Medicine 05/19/14 Alex Ruby, RN [address] [place] [address] Registered Nurse Family Medicine 04/27/25 Lubna Telles 04/27/25 Antonietta Reid, PharmD [address] [place] [address] Pharmacist Pharmacy 05/24/25 documented as of this encounter
--- OUTSIDE RECORDS SUMMARY | 2025-08-29 14:54 | XMS_ITS | Encounter Summary ---
Author Organization [employer] Address 75 [facility] 7t [place] [address] Care Team Providers Care Senior Loan Officer Name Role Phone Charlotte Dickens MD Primary Care Provider [phone] Alex Ruby RN Unavailable [phone] Lubna Telles Unavailable Antonietta Reid PharmD Unavailable [phone] Encounter Details Date Type Department Care Team (Late st Contact Info) Description 05/23/2025 Orders Only [facility] MEDICINE [address] [place], [place] [phone] Charlotte Dickens MD [address] [place], [place] [phone] Type 2 diabetes mellitus without complication, without long-term current use of insulin ([facility]) Social History Tobacco Use Types Packs/Day [...] Description 12/15/2025 9:30 AM EST Office Visit [facility] OPTOMETRY [address] [place] [address] Shon, Fauzia, OD [address] [place] [address] documented as of this encounter Visit Diagnoses Diagnosis Type 2 diabetes mellitus without complication, without long-term current use of insulin (HCC) documented in this encounter Additional Health Concerns Assessment Noted Time PHQ-9 Depression Total Score: 0 04/12/20 24 2:57 PM EDT documented as of this encounter Care Teams Senior Loan Officer Relationship Specialty Start Date End Date Charlotte Dickens MD [address] [place] [address] PCP - General Family Medicine 05/19/14 Alex Ruby, RN [address] [place] [address] Registered Nurse Family Medicine 04/27/25 Lubna Telles 04/27/25 Antonietta Reid, PharmD [address] [place] [phone] Pharmacist Pharmacy 05/24/25 documented as of this encounter
--- OUTSIDE RECORDS SUMMARY | 2025-08-29 14:54 | XMS_ITS | Encounter Summary ---
Author Organization [employer] Address 75 [facility] 7t [place] [address] Care Team Providers Care Cook Mayonnaise Name Role Phone Charlotte Dickens MD Primary Care Provider [phone] Alex Ruby RN Unavailable [phone] Lubna Telles Unavailable Antonietta Reid PharmD Unavailable [phone] Reason for Visit * Reason Comments Med Refill Encounter Details Date Type Department Care Team (Late st Contact Info) Description 12/23/2024 Refill [facility] [address] [place], [place] [phone] Chas Angel MD [address] [place], [place] [phone] Vertigo Social History Tobacco Use Types Packs/Day [...] Description 12/15/2025 9:30 AM EST Office Visit [facility] OPTOMETRY [address] [place] [address] Shon, Fauzia, OD [address] [place] [address] documented as of this encounter Visit Diagnoses Diagnosis Vertigo Dizziness and giddiness documented in this encounter Additional Health Concerns Assessment Noted Time PHQ-9 Depression Total Score: 0 04/12/20 24 2:57 PM EDT documented as of this encounter Care Teams Cook Mayonnaise Relationship Specialty Start Date End Date Charlotte Dickens MD [address] [place] [address] PCP - General Family Medicine 05/19/14 Alex Ruby, RN [address] [place] [address] Registered Nurse Family Medicine 04/27/25 Lubna Telles 04/27/25 Antonietta Reid, PharmD [address] [place] [address] Pharmacist Pharmacy 05/24/25 documented as of this encounter
--- OUTSIDE RECORDS SUMMARY | 2025-08-29 14:55 | XMS_ITS ---
Author Organization [employer] Address [address] [facility] 7t [place] [address] Care Team Providers Care Net Development Manager Name Role Phone Charlotte Dickens MD Primary Care Provider [phone] Alex Ruby RN Unavailable [phone] Lubna Telles Unavailable Antonietta Reid PharmD Unavailable [phone] [facility] Complex Status:Enrolled (Active) Start date:04/27/2025 Enrollment date:06/22/2025 Enrollment reason:Referred by provider Overview Provider Referral- pt misses many appts. Not adherent to treatment. Low medical literacy. Getting false health facts from the media or people. Case Team Name Relationship Phone Alex Ruby RN(Responsible Staff) Registered Marivel sweeney [phone] Continued Care and Services Coordination
--- OUTSIDE RECORDS SUMMARY | 2025-08-29 14:55 | XMS_ITS | Encounter Summary ---
Author Organization [employer] Address [address] [facility] 7[address] [place] [address] Care Team Providers Care Refined Syrup Operator Name Role Phone Charlotte Dickens MD Primary Care Provider [phone] Alex Ruby RN Unavailable [phone] Lubna Telles Unavailable Antonietta Reid PharmD Unavailable [phone] Encounter Details Date Type Department Care Team (Late st Contact Info) Description 07/20/2025 Orders Only [facility] MEDICINE [address] [place], [place] [phone] Charlotte Dickens MD [address] [place], [place] [phone] Social History Tobacco Use Types Packs/Day Years [...] Upcoming Encounters Date Type Department Care Team ([facility] st Contact Info) Description 12/15/2025 9:30 AM EST Office Visit [facility] OPTOMETRY [address] [place] [address] Shon, Fauzia, OD [address] [place] [address] documented as of this encounter Visit Diagnoses Not on filedocumented in this encounter Additional Health Concerns Assessment Noted Time PHQ-9 Depression Total Score: 7 06/23/20 25 2:13 PM EDT documented as of this encounter Care Teams Refined Syrup Operator Relationship Specialty Start Date End Date Charlotte Dickens MD [address] [place] [address] PCP - General Family Medicine 05/19/14 Alex Ruby, RN [address] [place] [address] Registered Nurse Family Medicine 04/27/25 Lubna Telles 04/27/25 Antonietta Reid, PolyD [address] [place] [address] Pharmacist Pharmacy 05/24/25 documented as of this encounter
--- OUTSIDE RECORDS SUMMARY | 2025-08-29 14:55 | XMS_ITS ---
Author Organization [employer] Address 75 [facility] 7t [place] [address] Care Team Providers Care Turntable Worker Name Role Phone Charlotte Dickens MD Primary Care Provider [phone] Alex Ruby RN Unavailable [phone] Lubna Telles Unavailable Antonietta Reid PharmD Unavailable [phone] Complex Status:Enrolled (Active) Start date:04/27/2025 Enrollment date:04/27/2025 Enrollment reason:Referred by provider Overview Provider Referral- pt misses many appts. Not adherent to treatment. Low medical literacy. Getting false health facts from the media or people. Case Team Name Relationship Phone Lubna Telles(Responsible Staff) [phone] Continued Care and Services Coordination
--- OUTSIDE RECORDS SUMMARY | 2025-08-29 14:55 | XMS_ITS | Encounter Summary ---
Author Organization [employer] Address [address] [facility] [address]t [place] [address] Care Team Providers Care Wood Crafter Name Role Phone Charlotte Dickens MD Primary Care Provider [phone] Alex Ruby RN Unavailable [phone] Lubna Telles Unavailable Antonietta Reid PharmD Unavailable [phone] Encounter Details Date Type Department Care Team (Late st Contact Info) Description 12/08/2023 Orders Only [facility] MEDICINE [address] [place], [place] [phone] Charlotte Dickens MD [address] [place], [place] [phone] Social History Tobacco Use Types Packs/Day Years [...] Description 12/15/2025 9:30 AM EST Office Visit [facility] OPTOMETRY [address] [place], [place] [phone] Shon, Fauzia, OD [address] [place] [address] documented as of this encounter Visit Diagnoses Not on filedocumented in this encounter Additional Health Concerns Assessment Noted Time PHQ-9 Depression Total Score: 0 04/27/20 23 3:33 PM EDT documented as of this encounter Care Teams Wood Crafter Relationship Specialty Start Date End Date Charlotte Dickens MD [address] [place] [address] PCP - General Family Medicine 05/19/14 Alex Ruby, RN [address] [place] [address] Registered Nurse Family Medicine 04/27/25 Lubna Telles 04/27/25 Antonietta Reid, PolyD [address] [place] [address] Pharmacist Pharmacy 05/24/25 documented as of this encounter
--- OUTSIDE RECORDS SUMMARY | 2025-08-29 14:55 | XMS_ITS | Clinical Summary ---
Author Organization [employer] Address [address] [facility] [address] [place] [address] Care Team Providers Care Overcoil Stepper Name Role Phone Charlotte Dickens MD Primary Care Provider [phone] lAex Ruby RN Unavailable [phone] Lubna Telles Unavailable Antonietta Reid PharmD Unavailable [phone] Allergies Active Allergy Reactions Criticality Noted Date Comments Nitrofurantoin Nausea And Vomiting 07/02/2017 Other reaction(s): Nausea / Vomiting Side Effects Prochlorperazine 11/24/2022 Other reaction(s): mouth swelling Medications cetirizine (ZyrTEC) 10 MG tablet Take 10 mg by mouth Once per day. 10/29/20 22 Active Advair Diskus 500-50 MCG/ACT aerosol powder 10/29/20 22 Active furosemide (Lasix) 40 MG tablet 11/06/19 23 Active fluticasone (Flonase) 50 MCG/ACT nasal spray Administer 1 spray into each nostril in the morning. 48 g 1 10/16/20 23 Active Acetaminophen Extra Strength 500 MG tablet TAKE 2 TABLETS BY MOUTH EVERY 8 HOURS NEEDED 50 tablet 12/28/19 24 Active atorvastatin (Lipitor) 10 MG tablet Take 1 tablet (10 mg) by mouth Once per day. 90 tablet 3 02/22/20 24 Active montelukast (Singulair) 10 MG tablet Take 1 tablet (10 mg) by mouth at bedtime. 90 tablet 3 04/12/20 24 Active tiZANidine (Zanaflex) 2 MG tablet TAKE 1 TABLET BY MOUTH EVERY 6 HOURS NEEDED FOR MUSCLE SPASMS 30 tablet 07/26/20 24 Active TRUEplus Lancets 33G miscIndications:T ype 2 diabetes mellitus without complication, without long-term current use of insulin ([facility]) USE TO TEST BLOOD SUGAR EVERY DAY 100 each 03/15/20 Active losartan (Cozaar) 50 MG tabletIndications :Hypertension, unspecified type TAKE 1 TABLET BY MOUTH EVERY MORNING 90 tablet 04/17/20 Active FREESTYLE LITE test stripIndications: Type 2 diabetes mellitus without complication, without long-term current use of insulin ([facility]) Check blood glucose 100 each 04/17/20 Active Blood Glucose Monitoring Suppl (FreeStyle Lite) w/Device kitIndications:Ty pe 2 diabetes mellitus without complication, without long-term current use of insulin ([facility]) 1 each Once per day. 1 kit 04/17/20 Active Tirzepatide (Mounjaro) 2.5 MG/0.5ML solution auto-injectorIndi cations:Type 2 diabetes mellitus without complication, without long-term current use of insulin ([facility]) Inject 2.5 mg under the skin 1 (one) time per week. 2 mL 04/17/20 25 Active insulin glargine (Lantus SoloStar) 100 UNIT/ML penIndications:Ty pe 2 diabetes mellitus without complication, without long-term current use of insulin ([facility]) Inject 10 Units under the skin at bedtime. 15 mL 05/23/20 25 Active FreeStyle lancetsIndication s:Type 2 diabetes mellitus without complication, without long-term current use of insulin ([facility]) 1 each by Other route 3 times daily. 100 each 05/23/20 25 Active Alcohol Swabs (Alcohol Prep) padsIndications:T ype 2 diabetes mellitus without complication, without long-term current use of insulin ([facility]) USE TO TEST BLOOD SUGAR 3 times per day 100 each 05/23/20 25 Active BD Pen Needle Noemy Ultrafine 32G X 4 MM misc use as directed 04/17/20 Active meclizine (Antivert) 25 MG tabletIndications :Vertigo TAKE 1 TABLET BY MOUTH EVERY 6 HOURS NEEDED FOR DIZZINESS 30 tablet 1 06/21/20 25 Active metFORMIN XR (Glucophage-XR) 500 MG 24 hr tabletIndications :Type 2 diabetes mellitus without complication, without long-term current use of insulin ([facility]) TAKE 2 TABLETS BY MOUTH TWICE DAILY WITH BREAKFAST AND WITH DINNER, DO NOT BREAK, CRUSH, DISSOLVE OR CHEW 360 tablet 1 06/28/20 25 Active Ventolin HFA 108 (90 Base) MCG/ACT inhaler INHALE 2 PUFFS BY MOUTH EVERY 4 TO 6 HOURS NEEDED FOR DIFFICULTY BREATHING. DO NOT EXCEED FOUR TIMES DAILY. 18 g 3 06/29/20 25 Active lidocaine (Lidoderm) 5 % patch APPLY 1 PATCH TOPICALLY TO SKIN, LEAVE ON FOR 12 HOURS AND OFF FOR 12 HOURS DIRECTED 30 patch 2 08/16/20 25 Active ondansetron ODT (Zofran-ODT) 4 MG disintegrating tabletIndications :Vertigo DISSOLVE 1 TABLET BY MOUTH EVERY 8 HOURS NEEDED FOR NAUSEA AND VOMITING 20 tablet 1 08/23/20 25 Active lidocaine (Lidoderm) 5 % patch APPLY 1 PATCH TOPICALLY TO SKIN, LEAVE ON FOR 12 HOURS AND OFF FOR 12 HOURS DIRECTED 30 patch 2 11/14/19 25 2024 Discontinued ondansetron ODT (Zofran-ODT) 4 MG disintegrating tabletIndications :Vertigo DISSOLVE 1 TABLET ON TONGUE EVERY 8 HOURS NEEDED FOR NAUSEA AND VOMITING 20 tablet 1 06/19/20 25 2024 Discontinued Active Problems Problem Noted Date Diagnosed Date Metabolic dysfunction-associ ated steatotic liver disease (MASLD) 07/27/2025 Assessment & Plan (07/27/2025 8:26 AM EDT): - known history of hepatic steatosis, porcelain gallbladder, and Hep C s/p Harvoni (ledipasvir/sofosbuvir) treatment History of recurrent UTI (urinary tract infectio n) 04/26/2025 Assessment & Plan (07/27/2025 8:17 AM EDT): - in a setting of uncontrolled diabetes mellitus and diuretic use - optimize diabetes management - Last seen by urologist in 2020 - last UTI in September 2022. Urine culture grew E. coli which was resistant to penicillin, cephalosporin first-generation. Sensitivity to younger generation cephalosporin, fluoroquinolone, nitrofurantoin, TMP/SMX. - currently symptomatic. Patient does not want to start empiric treatment. Will send urine culture. Addendum: urine culture grew Proteus mirabilis resistant to ampicillin, nitrofurantoin, and TMP/SMX. Treated with levofloxacin Assessment & Plan (04/26/2025 9:16 AM EDT): [...] Dyspnea on exertion 07/20/2024 Environmental allergies 07/20/2024 NE (obstructive sleep apnea) 07/20/2024 Assessment [...] normal Symptoms clinically described as vertigo and [place] -Hallpike maneuver is triggering symptoms , normal neurologic exam -check TSH, CBC,Chem -resume meclizine ,Zofran prn -hydration advised -Alarm signs and symptoms discussed w pt -if ongoing may need to consider MRI brain -warm compress in neck ,tylenol prn -home head excercises explained to pt -apt 07/25/2024 w PCP scheduled already Dyslipidemia 02/28/2024 Assessment & Plan (07/27/2025 7:57 AM EDT): - last lipid profile 04/17/25, TRIG 186, TC 203, LDL 122, HDL 44 - continue atorvastatin 10 mg at bedtime, improve adherence. Consider increasing to 20 mg at bedtime. - Continue working on lifestyle modification Assessment [...] - Will start atorvastatin 10 mg qhs Candidate for statin therapy due to risk of future cardiovascular event 01/11/2024 Assessment & Plan (01/11/2024 5:41 AM EDT): - lipid profile on 12/07/23 total cholesterol 195; triglyceride 90; LDL 100; HDL 70 Allergic rhinitis 12/09/2023 Assessment & Plan (07/27/2025 7:58 AM EDT): - continue following with Dr. Catherine Assessment & Plan (12/14/2023 1:17 PM EST): - continue following with Dr. Catherine Diabetes mellitus, type 2 12/04/2023 Assessment & Plan (07/27/2025 8:01 AM EDT): - Dx Dec 2023, RBG 300, patient had just completed prednisone burst - Hgb A1C 7.1% on 07/17/25, improved from 15.0% on 04/17/25 - Continue working on lifestyle modifications - Continue checking glucose once a day - Continue metformin ER 1000 mg bid - Continue long-acting insulin, Tresiba, 10 units daily - Continue tirzepatide 2.5 mg nightly, consider increasing to 5 mg nightly if no improvement in A1c by next visit - Microalbumin test: 04/18/2025 UACR 19.4 - Last lipid profile 04/17/25, TRIG 186, TC 203, LDL 122, HDL 44 - Diabetic eye exam: 02/17/24 [facility]. No retinopathy. Upcoming appointment in December 2025? - Foot exam: April 2025 Assessment & [...] HDL 44 - Diabetic eye exam: 02/17/24 [facility]. No retinopathy - Foot [...] HDL 70 - Diabetic eye exam: 02/17/24 [facility]. No retinopathy - Foot [...] HDL 70 - Diabetic eye exam: 02/17/24 [facility]. No retinopathy - Foot [...] of hepatitis C 04/29/2023 Assessment & Plan (07/27/2025 8:08 AM EDT): - Likely transmitted through transfusion which she received during childbirth -Genotype 1a. - s/p Harvoni in Dec and December 2016 - 08/11/16 Abdominal US No focal liver lesion. Cholelithiasis -09/12/21 US no liver lesion / GB stone and wall thickening -Most recent imaging in April 2024. Abdominal CT scan: Possibly Bladder is discontinuous/incomplete. Mural calcification. Continued surveillance is recommended if surgical resection is not performed. Hepatic steatosis. Atrophic left kidney with compensatory hypertrophy of the right kidney. - Avoid hepatotoxic substances / drugs / behaviors. - Completed Hep A and B immunization. Will order abdominal US Assessment & Plan (04/19/2025 12:39 PM EDT): [...] Obesity 12/02/2022 Hypertension 11/24/2022 Assessment & Plan (07/27/2025 7:56 AM EDT): -Goal BP < 130/80 per ACC/AHA guideline -Treatment Hx: Started on hydrochlorothiazide in May 2019, but it was discontinued since she was prescribed furosemide by another provider in 2020. Lisinopril added in Aug 2022, which was changed to losartan in Dec 2023 due to patient's non- adherence. . - Continue furosemide 40 mg daily - Continue losartan 50 mg daily -Continue working on lifestyle modifications Assessment & Plan (04/26/2025 10:24 AM EDT): [...] Solitary kidney, congenital 10/31/2022 Assessment & Plan (07/27/2025 8:10 AM EDT): - functioning right kidney - CT in April 2024 showed: Atrophic left kidney with compensatory hypertrophy of right kidney Assessment & Plan (04/26/2025 9:16 AM EDT): - right kidney only Vitamin D deficiency 03/31/2018 Elevated AFP 03/31/2018 Assessment & Plan (07/27/2025 8:19 AM EDT): Hx Hep C s/p Tx 06/10/19 Abd US 1. Slightly echogenic heterogeneous liver echotexture suggestive of hepatocellular disease. No focal liver lesion seen. Wall echo shadow complex suggestive of a gallbladder filled with gallstones. 2. Elastography: Metavir score F2 to F3 suggestive of [id number] risk of developing liver fibrosis. 09/12/21 US no liver lesion Evaluated by [facility], last seen in Dec 2023 Last AFP 7.2 in May 2024 Repeat US and refer back to GI. Assessment & Plan (12/14/2023 1:17 PM EST): Hx Hep C s/p Tx 06/10/19 Abd US 1. Slightly echogenic heterogeneous liver echotexture suggestive of hepatocellular disease. No focal liver lesion seen. Wall echo shadow complex suggestive of a gallbladder filled with gallstones. 2. Elastography: Metavir score F2 to F3 suggestive of [id number]-wreezoqz risk of developing liver fibrosis. 09/12/21 US no liver lesion Evaluated by [facility], last seen in Dec 2023 Assessment & Plan (04/29/2023 5:34 PM EDT): Hx Hep C s/p Tx 06/10/19 Abd US 1. Slightly echogenic heterogeneous liver echotexture suggestive of hepatocellular disease. No focal liver lesion seen. Wall echo shadow complex suggestive of a gallbladder filled with gallstones. 2. Elastography: Metavir score F2 to F3 suggestive of fwws-yz-dkmmkqph risk of developing liver fibrosis. 09/12/21 US no liver lesion Referred to GI in 2021 Will check the status of appt Update US while waiting for appt Migraine 12/16/2016 Porcelain gallbladder 08/25/2016 Assessment & Plan (07/27/2025 8:06 AM EDT): - Following with [facility], last seen in 2023. - Hospitalized in 2021. Treated with IV antibiotic. Evaluated by general surgeon, and elected observation. - Evaluated by general surgeon again in 2023. Patient chose to continue observation, rather than elective cholecystectomy. Assessment & Plan (12/14/2023 1:15 PM EST): - CT scan is ordered by Dr. Mejia, GI Backache 08/09/2015 Asthma 02/15/2013 Assessment & Plan (07/27/2025 8:23 AM EDT): -Fruit Sprayer: Dr. Catherine, last seen in Nov 2023 -Most recent exacerbation on 03/03/24, seen in [facility]. Treated with prednisone burst. -01/26/24 treated with prednisone burst, patient had exacerbation on 12/08/23 and 11/26/23, treated with prednisone burst -Frequency of exacerbation 1 -2 x / mo for last 6 months -Continue Advair to 500/50 one puff bid. -Continue Singulair 10 mg qhs. -Continue albuterol HFA/neb prn. -pt's symptoms improve better with a nebulizer treatment. Nebulizer was prescribed. -Consider switching to SMART with budesonide / formoterol (Symbicort) or Assessment & Plan (04/16/2025 5:11 PM EDT): -Fruit Sprayer: Dr. Catherine, last seen in Nov 2023 -Most recent exacerbation on 03/03/24, seen in [facility]. Treated with prednisone burst. -01/26/24 treated [...] Assessment & Plan (04/12/2024 10:11 AM EDT): -Fruit Sprayer: Dr. Catherine, last seen in Nov 2023 -Most recent exacerbation on 03/03/24, seen in [facility]. Treated with prednisone burst. -01/26/24 treated [...] Assessment & Plan (02/28/2024 12:10 PM EDT): -Fruit Sprayer: Dr. Catherine, last seen in Nov 2023 [...] Assessment & Plan (01/11/2024 5:39 AM EDT): -Fruit Sprayer: Dr. Catherine, last seen in Nov 2023 [...] Assessment & Plan (12/14/2023 1:13 PM EST): -Fruit Sprayer: Dr. Catherine, last seen in Nov 2023 -Most recent exacerbation on 11/26/23, treated with prednisone burst -Continue Advair to 500/50 one puff bid. -Continue Singulair 10 mg qhs. -Continue albuterol HFA/neb prn. -pt's symptoms improve better with a nebulizer treatment. Nebulizer was prescribed. Assessment & Plan (04/29/2023 5:35 PM EDT): -Fruit Sprayer: Dr. Catherine, last seen May 2022 -Most recent exacerbation on 01/20/20, treated with prednisone burst -Continue Advair to 500/50 one puff bid. -Continue Singulair 10 mg qhs. -Continue albuterol HFA/neb prn. -pt's symptoms improve better with a nebulizer treatment. Nebulizer was prescribed. Mixed anxiety and depressive disorder 12/30/2012 Assessment & Plan (07/27/2025 8:20 AM EDT): Work on stress reduction Assessment & Plan (04/26/2025 9:17 AM EDT): Work on stress reduction Assessment & Plan (12/14/2023 1:18 PM EST): Work on stress reduction Resolved Problems Problem Noted Date Diagnosed Date Resolved Date Left flank pain 07/20/2024 07/27/2025 Laryngitis 01/26/2024 02/28/2024 Assessment & Plan (01/26/2024 5:31 PM EDT): Counseled re increase water intake Warm water/salt gargles Take PRD 20mg x 5d Sore throat 01/26/2024 07/27/2025 Transaminitis 11/24/2022 02/28/2024 Chronic hepatitis C (CMS/HCC) 02/15/2013 12/09/2023 Assessment & Plan (12/16/2022 3:59 AM EST): -Genotype 1a -Treated with Harvoni for 8 weeks in 2017 -Hx elevated AFP -Last LFT on 09/20/22 normal -Last abdominal US 09/12/21 porcelain gallbladder, mild hepatic steatosis without focal hepatic parenchymal lesion Encounters Date Type Department Care Team Description 08/22/[address] [facility] [address] [place], [place] [phone] Charlotte Dickens MD Vertigo 08/18/[address] [facility] [address] [place] [address] Charlotte Dickens MD Care Management (C3CM- Follow Up Call # 2/LVM) 08/18/[address] [facility] [address] [place], [place] [phone] Charlotte Dickens MD Care Coordination (C3 CM-[facility] Lubna Telles telephone call outreach) 08/16/[address] [facility] [address] [address] Charlotte Dickens MD 08/01/2025 Travel 07/26/2025 Results Follow-Up [address] [address] Vikash Newton ANP XR Chest 2 Views 07/25/[address] [address] Charlotte Dickens MD 07/24/2025 3:20 PM EDT Office [facility] [address] [address] Vikash Newton ANP Pleuritic pain (Primary Dx); Acute cough; Moderate persistent asthma with acute exacerbation; Primary hypertension 07/24/2025 Travel 07/24/2025 Patient Outreach [facility] [address] [place], [place] [phone] Charlotte Dickens MD Care Management (C3- follow up call # 1) 07/20/2025 Orders Only [address] [address] Charlotte Dickens MD 07/20/2025 Results Follow-Up [address] [address] Charlotte Dickens MD POCT glycosylated hemoglobin (Hgb A1c), POCT glucose manually resulted, Culture, Urine, Routine, POCT urinalysis dipstick manually resulted 07/19/[address] [phone] Charlotte Dickens MD 07/17/2025 1:15 PM EDT Office Visit [address] [address] Charlotte Dickens MD Hypertension, unspecified type (Primary Dx); Dyslipidemia; Type 2 diabetes mellitus without complication, without long-term current use of insulin ([facility]); NE (obstructive sleep apnea); Moderate persistent asthma without complication; Dysuria; Encounter for immunization; Environmental allergies; Venous stasis dermatitis; Allergic rhinitis, unspecified seasonality, unspecified trigger; Vitamin D deficiency; Dietary counseling; Exercise counseling; Class 2 severe obesity due to excess calories with serious comorbidity and body mass index (BMI) of 37.0 to 37.9 in adult (CMS/HCC); History of recurrent UTI (urinary tract infection); Solitary kidney, congenital; Constipation, unspecified constipation type; History of hepatitis C; Gastroesophageal reflux disease, unspecified whether esophagitis present; Porcelain gallbladder; Elevated AFP; History of syphilis; Mixed anxiety and depressive disorder; Metabolic dysfunction-associat ed steatotic liver disease (MASLD); Migraine without status migrainosus, not intractable, unspecified migraine type 07/17/2025 Travel 07/14/[address] [address] Charlotte Dickens MD CHART PREP 07/11/[address] [address] Charlotte Dickens MD Appointment Request 07/07/2025 Patient Outreach [address] [address] Charlotte Dickens MD Pre-visit Planning (SDOH screening was completed on 04/27/2025) 06/29/[address] [address] Charlotte Dickens MD 06/27/2025 Travel 06/26/2025 Plan of Care Documentation [address] [address] 06/22/2025 Patient Outreach [address] [address] Charlotte Dickens MD Care Management (C3CM- Initial assessment/enrollmen t) 06/21/2025 Patient Outreach [address] [address] Charlotte Dickens MD Care Coordination (C3 CM-[facility] [place] telephone call outreach) 06/20/[address] [facility] [address] [place] [phone] Chas Angel MD Vertigo 06/19/[address] [facility] [address] [place] [address] Charlotte Dickens MD Vertigo 05/31/[address] [facility] [address] [place] [phone] Charlotte Dickens MD Care Coordination (C3 -W [place] telephone call outreach) 05/29/[address] [facility] [address] [place] [address] Antonietta Reid, PharmD from Last 3 Months Immunizations Immunization Administration [...] Description 12/15/2025 9:30 AM EST Office Visit [facility] [address] [place] [address] ShonFauzia cesar, OD [address] [place] [address] Health Maintenance Due Date Last Done Comments [...] 07/17/2025 Disability Screening 07/17/2026 07/17/2025 Tobacco Screening 07/27/2026 07/27/2025 Mammogram 06/15/2027 06/15/2025, 09/16/2021 RSV Patients and [...] complication, without long-term current use of insulin ([facility]) POCT GLUCOSE Routine 07/17/2025 1:27 PM EDT Type 2 diabetes mellitus without complication, without long-term current use of insulin ([facility]) BI MAMMOGRAM SCREENING TOMOSYNTHESIS BILATERAL Routine 06/15/2025 1:30 PM EDT Breast cancer screening by mammogram ALBUMIN, RANDOM URINE W/CREATININE Routine 04/18/2025 1:25 PM EDT Hypertension, unspecified type Type 2 diabetes mellitus without complication, without long-term current use of insulin ([facility]) LIPID PANEL WITH REFLEX TO DIRECT LDL Routine 04/17/2025 12:52 PM EDT Dyslipidemia HIV 1/2 ANTIGEN/ANTIBODY, FOURTH GENERATION W/RFL Routine 09/10/2022 11:22 AM EST from Last 3 Months or Most Recently Relevant to Health Maintenance Results * XR Chest 2 Views (07/25/2025 11:50 AM EDT) Anatomical Region Laterality Modality Chest Radiographic Barby ging 07/25/2025 11:5 0 AM EDT Narrative 07/25/2025 12:03 PM EDT [address] [address] XRay Report Signed Patient: Jacqui Russo MR#: [id number] : 1965 Acct:[id number] Age/Sex: 59 / F ADM Date: 07/25/25 Loc: .HHX Attending Dr: Vikash Newton [employer] Ordering Physician: VIKASH NEWTON NP Date of Service: 07/25/25 Procedure(s): XR chest 2V Accession Number(s): [id number] cc: VIKASH NEWTON NP; Charlotte Dickens MD [...] 07/25/25 1201 DD/ 1150 TD/TT: 07/25/25 1157 Strip Cutter: Procedure Note Donotuseinterpreter, Image - 07/25/2025 [place] [address] XRay Report Signed Patient: Jaqui Russo#: [id number] : 1965Acct:[id number] Age/Sex: 59 / FADM Date: 07/25/25 Loc: HO.HHCX Attending Dr: Vikash Newton NP Ordering Physician: VIKASH NEWTON NP Date of Service: 07/25/25 Procedure(s): XR chest 2V Accession Number(s): [id number] cc: VIKASH NEWTON NP; Charlotte Dickens MD [...] 07/25/25 1201 DD/ 1150 TD/TT: 07/25/25 1157 Strip Cutter: Vikash Newton ANP IMG XR PROCEDURES Final Result * Influenza B (ID NOW Rapid Molecular) (07/24/2025 4:11 PM EDT) [facility] Influenza B Negative Negative, Indeterminate [facility] Swab 07/24/2025 4:11 PM EDT Vikash Newton ANP POINT OF CARE TEST ENTER/EDIT OR DERABLES Final Result Performing Organization Address [facility] Co de Phone Number [facility] [address] [place] [phone] * Influenza A (ID NOW Rapid Molecular) (07/24/2025 4:11 PM EDT) [facility] Influenza A Negative Negative, Indeterminate [facility] Swab 07/24/2025 4:11 PM EDT Vikash Newton ANP POINT OF CARE TEST ENTER/EDIT OR DERABLES Final Result Performing Organization Address [facility] Co de Phone Number [facility] [address] [place] [phone] * POCT Rapid COVID Ag (07/24/2025 4:11 PM EDT) [facility] Rapid COVID Ag Negative [facility] Swab 07/24/2025 4:11 PM EDT Vikash STUART POINT OF CARE TEST ENTER/EDIT OR DERABLES Final Result [facility] [address] [place] [phone] * POCT urinalysis dipstick manually resulted [...] Media Lot # [id number] Lot# Expiration Date [id number] Urine 07/17/2025 1:53 PM EDT Charlotte Dickens MD POINT OF CARE TEST ENTER/EDIT OR DERABLES Final Result * Culture, Urine, Routine (07/17/2025 1:50 PM EDT) Urine Urine specimen obtained by clean catch procedure / Unknown 07/17/2025 1:50 PM EDT 07/17/2025 5:42 PM EDT Comment:UACC Narrative [facility] - 07/20/2025 8:05 AM EDT Proteus mirabilis Quant > 100,000 cfu/mL Proteus mirabilis: Ampicillin >=32(R) Proteus mirabilis: Cefazolin (Urine) 8(S) Proteus mirabilis: Cefepime 2(S) Proteus mirabilis: Ceftriaxone <=0.25(S) Proteus mirabilis: Ciprofloxacin <=0.06(S) Proteus mirabilis: Gentamicin <=1(S) Proteus mirabilis: Nitrofurantoin 64(R) Proteus mirabilis: Trimethoprim/Sulfamethoxazole >=320(R) Specimen Source: Urine clean catch Charlotte Dickens MD LAB MICROBIOLOGY - GENERAL ORDER AZUL Final Result [facility] [address] [place] [phone] * (ABNORMAL) POCT glycosylated hemoglobin (Hgb [...] Media Lot # [id number] Lot# Expiration Date [id number] Blood Capillary blood specimen / Unknown 07/17/2025 1:27 PM EDT Charlotte Dickens MD POINT OF CARE TEST ENTER/EDIT OR DERABLES Final Result * BI Mammogram Screening Tomosynthesis Bilateral (06/15/2025 1:30 PM EDT) Anatomical Region Laterality Modality Breast Bilateral Mammography 06/15/2025 1:30 PM EDT Narrative 06/20/2025 1:59 PM EDT [facility] [address] [place] [address] Mammography Report Signed Patient: Jacqui Russo MR#: [id number] : 1965 Acct:[id number] Age/Sex: 59 / F ADM Date: 06/15/25 Loc: [facility] Attending Dr: Charlotte Dickens MD Ordering Physician: Charlotte Dickens MD Results: 1Negative Date of Service: 06/15/25 Follow Up: 1 Year From Orig inal Mammogram Procedure(s): MM tomosynthesis screening BI Accession Number(s): [id number] cc: Charlotte Dickens MD EXAMINATION: MM SCREENING [...] for their next mammogram. Electronically signed by: eMredith Lacy DO 06/20/2025 01:57 PM EDT Dictated By: Meredith Lacy DO Signed By: <Electronically signed by Meredith Lacy DO in OV> 06/20/25 1357 DD/ 1330 TD/TT: 06/15/25 1404 Strip Cutter: Procedure Note Donotuseinterpreter, Image - 06/20/2025 [facility] [address] [place] [address] Mammography Report Signed Patient: Jaqui Russo#: [id number] : 1965Acct:[id number] Age/Sex: 59 / FADM Date: 06/15/25 Loc: [facility] Attending Dr: Charlotte Dickens MD Ordering Physician: Charlotte Dickens MDResults: 1Negative Date of Service: 06/15/25Follow Up: 1 Year From Orig inal Mammogram Procedure(s): MM tomosynthesis screening BI Accession Number(s): [id number] cc: Charlotte Dickens MD EXAMINATION: MM SCREENING [...] 06/20/25 1357 DD/ 1330 TD/TT: 06/15/25 1404 Strip Cutter: Charlotte Dickens MD IMG BI PROCEDURES Final Result * Albumin, Random Urine W/Creatinine (04/18/2025 1:25 PM EDT) Creatinine, Urine 102.75 mg/dL [facility] Microalbumin Urine 20.0 mg/L [facility] Microalbum Creatinine Ratio Ur 19.4 <30 ug/mg cr [facility] Comment:Albumin/Creatinine R atio Reference Ranges: Normal: < 30 ug/mg creatinine Microalbuminuria: 30 - 300 ug/mg creatinineClinical Albuminuria: > 300 ug/mg creatinine Urine 04/18/2025 1:25 PM EDT 04/18/2025 4:05 PM EDT Charlotte Dickens MD LAB URINE ORDERABLES Final Resul t [facility] [address] [place] [phone] * (ABNORMAL) Lipid Panel with Reflex to Direct LDL (04/17/2025 12:52 PM EDT) Triglycerides 186(H) <150 mg/dL [facility] Comment:Desirable Triglyceri de: less than 150 mg/dLBorderline High Triglyceride 150-199 mg/dLHigh Triglyceride: 200-499 mg/dLVery High Triglyceride: greater than or equal to 5OO mg/dL Cholesterol 203(H) <200 mg/dL [facility] Comment:Desirable Cholestero l: less than 200 mg/dLBorderline High Cholesterol: 200-239 mg/dLHigh Cholesterol: greater than 239 mg/dL LDL Cholesterol Calculated 122(H) <100 mg/dL [facility] Comment:Desirable LDL: less than 100 mg/dLNear Optimal/Above Optimal LDL: 110- 129 mg/dLBorderline High LDL: 130-159 mg/dLHigh LDL: 160-189 mg/dLVery High LDL: greater than or equal to 190 mg/dL HDL Cholesterol 44 >40 mg/dL [facility] Comment:Desirable HDL: great er than 40 mg/dL Note: This HDL assay may give artificially low results in patients with liver disease. Blood 04/17/2025 12:5 2 PM EDT 04/17/2025 4:10 PM EDT us Charlotte Dickens MD LAB BLOOD ORDERABLES Final Resul t [facility] [address] [place] [phone] * HIV 1/2 ANTIGEN/ANTIBODY,FOURTH GENERATION W/RFL [...] purpose. For additional information please refer to http://[employer]/faq/AHG018 (This link is being provided for informational/ educational purposes only.) The performance of this assay has not been clinically validated in patients less than 2 years old. 09/10/2022 11:2 2 AM EST Charlotte Dickens MD LAB BLOOD ORDERABLES Final Resul t [facility] from Last 3 Months or Most Recently Relevant to Health Maintenance [place] [address] [place] [address] C3 Care Teams Overcoil Stepper Relationship Specialty Start Date End Date Charlotte Dickens MD [address] [place] [address] PCP - General Family Medicine 05/19/14 Alex Ruby, RN [address] [place] [phone] Registered Nurse Family Medicine 04/27/25 Lubna Telles 04/27/25 Antonietta Reid, PharmD [address] [place] [address] Pharmacist Pharmacy 05/24/25
--- OUTSIDE RECORDS SUMMARY | 2025-08-29 14:55 | XMS_ITS | Encounter Summary ---
Author Organization [facility] Address [address] [place] [address] Care Team Providers Care Handicraft Or Hobby Shop Manager Name Role Phone Charlotte Dickens MD Primary Care Provider [phone] Alex Ruby RN Unavailable [phone] Lubna Telles Unavailable Antonietta Reid PharmD Unavailable [phone] Encounter Details Date Type Department Care Team (Late st Contact Info) Description 12/04/2023 Orders Only [facility] MEDICINE [address], [place] [phone] Charlotte Dickens MD [address], [place] [phone] Type 2 diabetes mellitus without complication, without long-term current use of insulin ([facility]) Social History Tobacco Use Types Packs/Day [...] PM ESTAssociated Problem(s): Diabetes mellitus, type 2 (HCC) - Dx on 12/04/23 Random blood glucose 300 mg/dl documented in this encounter Plan of Treatment Upcoming Encounters Date Type Department Care Team (Late st Contact Info) Description 12/15/2025 9:30 AM EST Office Visit [facility] OPTOMETRY [address] [place] [address] Shon, Fauzia, OD [address] [facility] [place] [address] documented as of this encounter Procedures Procedure [...] complication, without long-term current use of insulin ([facility]) TISSUE TRANSGLUTAMINASE AB, IGA Routine 12/04/2023 1:33 PM EST Type 2 diabetes mellitus without complication, without long-term current use of insulin ([facility]) IMMUNOGLOBULIN A Routine 12/04/2023 1:33 PM EST Type 2 diabetes mellitus without complication, without long-term current use of insulin ([facility]) documented in this encounter Results * Albumin, Random Urine W/Creatinine (12/07/2023 9:10 AM EST) Creatinine, Urine 111.49 mg/dL [facility] Microalbumin Urine 19.0 mg/L [facility] Microalbum Creatinine Ratio Ur 17.0 <30 ug/mg cr [facility] Comment:Albumin/Creatinine R atio Reference Ranges: Normal: < 30 ug/mg creatinine Microalbuminuria: 30 - 300 ug/mg creatinineClinical Albuminuria: > 300 ug/mg creatinine Urine 12/07/2023 9:10 AM EST 12/07/2023 11:22 AM EST us Charlotte Dickens MD LAB URINE ORDERABLES Final Resul t [facility] [address] [place] [phone] * (ABNORMAL) Lipid Panel with Reflex to Direct LDL (12/07/2023 9:10 AM EST) Triglycerides 90 <150 mg/dL [facility] Comment:Desirable Triglyceri de: less than 150 mg/dLBorderline High Triglyceride 150-199 mg/dLHigh Triglyceride: 200-499 mg/dLVery High Triglyceride: greater than or equal to 5OO mg/dL Cholesterol 195 <200 mg/dL [facility] Comment:Desirable Cholestero l: less than 200 mg/dLBorderline High Cholesterol: 200-239 mg/dLHigh Cholesterol: greater than 239 mg/dL LDL Cholesterol Calculated 100(H) <100 mg/dL [facility] Comment:Desirable LDL: less than 100 mg/dLNear Optimal/Above Optimal LDL: 110- 129 mg/dLBorderline High LDL: 130-159 mg/dLHigh LDL: 160-189 mg/dLVery High LDL: greater than or equal to 190 mg/dL HDL Cholesterol 77 >40 mg/dL [facility] Comment:Desirable HDL: great er than 40 mg/dL Note: This HDL assay may give artificially low results in patients with liver disease. Blood 12/07/2023 9:10 AM EST 12/07/2023 11:23 AM EST Charlotte Dcikens MD LAB BLOOD ORDERABLES Final Resul t Performing Organization Address [facility] Co de Phone Number [facility] [address] [place] [phone] * (ABNORMAL) Hemoglobin A1c (12/07/2023 9:10 AM EST) Hemoglobin A1c 7.3(H) <6.0 % [facility] Comment:Hemoglobin A1C Refer ence Range Adults: 4.8 - 6.0 % Non diabetic: < 6.0 % Goal: < 7.0 %Additional Action Suggested: > 8.0 %Note: Hemoglobin A1c results are invalid for patients with abnormal amounts of HbF. Blood transfusions may impact the HbA1c concentration in the patient sample. Estimated Average Glucose 163 mg/dL [facility] Comment:eAG = Estimated ave rage glucose which is %A1C expressed asaverage glucose, using the formula of the Z1G-LxzpdrxDbaobsq Glucose study (ADAG), Diabetes Care, Vol.31,#8,Jun. 2007 Blood Venous blood specimen / Unknown 12/07/2023 9:10 AM EST 12/07/2023 11:23 AM EST Charlotte Dickens MD LAB BLOOD ORDERABLES Final Resul t Performing Organization Address [facility] Co de Phone Number [facility] [address] [place] [phone] * Tissue Transglutaminase Antibody, IgA (12/04/2023 1:33 PM EST) Transglutaminase IgA <1.0 U/mL [facility] Comment:Value Interpretation ----- <15.0 Antibody not detected> or = 15.0 Antibody detectedTHIS TEST WAS PERFORMED AT:[employer] [address] [phone] KOEHLER MD 12/04/2023 1:33 PM EST 12/04/2023 1:33 PM EST Generic External Data Provider LAB BLOOD ORDERAB LES Final Result Performing Organization Address [facility] Co de Phone Number [facility] [address] [place] [phone] * Immunoglobulin A (12/04/2023 1:33 PM EST) Immunoglobulin A, Qn, Serum 153 47 - 310 mg/dL [facility] Comment:THIS TEST WAS PERFOR MED AT:[employer] [address] [phone] KOEHLER MD 12/04/2023 1:33 PM EST 12/04/2023 1:33 PM EST Generic External Data Provider LAB BLOOD ORDERAB LES Final Result Performing Organization Address [facility] Co de Phone Number [facility] [address] [place] [phone] documented in this encounter Visit Diagnoses Diagnosis Type 2 diabetes mellitus without complication, without long-term current use of insulin (HCC) documented in this encounter Additional Health Concerns Assessment Noted Time PHQ-9 Depression Total Score: 0 04/27/20 23 3:33 PM EDT documented as of this encounter Care Teams Handicraft Or Hobby Shop Manager Relationship Specialty Start Date End Date Charlotte Dickens MD [address] [place] [phone] PCP - General Family Medicine 7/18/14 Alex Ruby, RN [address] [place] [phone] Registered Nurse Family Medicine 04/27/25 Lubna Telles 04/27/25 Antonietta Reid, Mary Anne [address] [place] [phone] Pharmacist Pharmacy 05/24/25 documented as of this encounter
== END 2025-08-29 10:52 | disposition home or self-care (01) ==
LOC: HO.LAB 10:51
PROVIDERS: PCP Family Medicine; Visit Provider Nurse Practitioner Family
DX: N39.0 Urinary tract infection, site not specified (principal); Z13.89 Encounter for screening for other disorder
CPT/HCPCS: 81003; 88112; 99212

== ENCOUNTER 2025-09-05 11:27 | Emergency (ER) | payer MEDICAID, SELFPAY ==
--- NOTE | ~2025-09-05 | US_ITS ---
CLINICAL HISTORY: pain Right lower extremity venous duplex ultrasound. Comparison: US/SR - US LOWER EXTREMITY VEINS BILATERAL - 03/03/2024 11:13 PM EDT Technique: Real time sonographic imaging, including color-flow imaging and spectral analysis, was performed by the retail product demo specialist. Multiple unit support representative static images were saved for review. Findings: The deep venous system is fully compressible from common femoral through the proximal leg veins. There is spontaneous and phasic flow, and augmentation. Color Doppler and spectral tracings are unremarkable. No popliteal fossa cyst. Impression: 1. Right lower extremity venous duplex ultrasound negative for DVT This document has been electronically signed by: Rohith Segura MD on 09/05/2025 20:13:06
--- NOTE | ~2025-09-05 | XR_ITS ---
EXAMINATION: XR FOOT, RIGHT CLINICAL INFORMATION: pain and swelling dorsal foot COMPARISON: None available. TECHNIQUE: AP, lateral, and oblique views of the right foot. FINDINGS: The bones are normal. No fracture. Alignment is anatomic. Joint spaces are maintained. Small calcaneal spurs. Soft tissues otherwise unremarkable. XR/XR foot RT min 3V IMPRESSION: Small calcaneal spurs otherwise unremarkable exam. Electronically signed by: Fior Navas MD 09/05/2025 12:11 PM UNRULY
--- NOTE | ~2025-09-05 | XR_ITS ---
CLINICAL HISTORY: cp 1 view chest x-ray. Comparison: 07/05/2025 Findings: No consolidation or effusion. Cardiac and mediastinal contours appear stable. Bones unremarkable. Impression: 1. No acute pulmonary disease. This document has been electronically signed by: Rohith Segura MD on 09/05/2025 20:18:48
--- NOTE | 2025-09-05 11:29 | ECG_ITS ---
Test Reason : CP Blood Pressure : */* mmHG Vent. Rate : 78 BPM Atrial Rate : 78 BPM P-R Int : 118 ms QRS Dur : 78 ms QT Int : 384 ms P-R-T Axes : 46 -17 41 degrees QTcB Int : 437 ms Normal sinus rhythm Cannot rule out Anterior infarct , age undetermined Abnormal ECG When compared with ECG of 03-Mar-2024 18:27, No significant change was found Referred By: Generic ED Physician Electronically Signed By: Isai Sandy
[2025-09-05 11:49] VITALS: BP 151/67; PULSE 75; RESP 20; TEMP 35.8; O2SAT 98; BMI 39.7
--- NOTE | 2025-09-05 11:51 | ED.GENADULT ---
HPI - General Adult General Chief complaint: Chest Pain Stated complaint: chest pain, hand pain Time Seen by Provider: 09/05/25 18:14 Source: patient, family and interpreter and translator Mode of arrival: ambulatory Limitations: no limitations History of Present Illness ED Provider: DR. Elaine HPI narrative: 59-year-old female came in with her family for evaluation right foot and chest pain. Patient has a history of diabetes been having right foot pain for the last 2 weeks feeling burning sensation only to the right foot, no recent trauma or injury, no recent travel, otherwise no calf pain, no recent prolonged immobilization, no history of DVT. Patient also started to have chest pain and mid chest started yesterday pain is intermittent felt it 1 more time today in the morning is mid chest pain with no radiation, no association with other symptoms, no clear aggravating or relieving factors. No recent travel, no prolonged immobilization. Related Data Home Medications ?Medication ?Instructions ?Recorded ?Confirmed albuterol sulfate 90 mcg/actuation 2 puff PO Q4-6H PRN dyspnea 12/09/21 08/29/25 aerosol inhaler (ProAir HFA) cetirizine 10 mg tablet 10 mg PO DAILY 12/09/21 08/29/25 fluticasone propionate 50 1 spray intranasal DAILY 12/09/21 08/29/25 mcg/actuation nasal spray,suspension montelukast 10 mg tablet 10 mg PO DAILY 12/09/21 08/29/25 fluticasone 500 mcg-salmeterol 50 1 ea inhalation 12/04/23 08/29/25 mcg/dose blistr powdr for inhalation (Advair Diskus) lidocaine 5 % topical patch patch topical 12/04/23 08/29/25 lisinopril 10 mg tablet 10 mg PO DAILY 12/04/23 08/29/25 mometasone 0.1 % topical ointment topical QAM 12/04/23 08/29/25 albuterol sulfate 90 mcg/actuation 2 puff inhalation Q4-6H PRN dyspnea 07/05/24 08/29/25 aerosol inhaler (Ventolin HFA) fluticasone 500 mcg-salmeterol 50 1 ea inhalation BID 07/05/24 08/29/25 mcg/dose blistr powdr for inhalation (Advair Diskus) losartan 25 mg tablet 25 mg PO QAM 07/05/24 08/29/25 meclizine 25 mg tablet 25 mg PO TID PRN dizziness 07/05/24 08/29/25 metformin 500 mg tablet,extended 500 mg PO BID 07/05/24 08/29/25 release 24 hr montelukast 10 mg tablet 10 mg PO BEDTIME 07/05/24 08/29/25 metformin 500 mg tablet,extended 500 mg PO 07/13/24 08/29/25 release 24 hr loratadine 10 mg tablet 10 mg PO DAILY 11/21/24 08/29/25 Previous Rx's ?Medication ?Instructions ?Recorded furosemide 40 mg tablet 60 mg (1.5 x 40 mg) PO DAILY #45 04/17/23 tabs peg 3350-electrolytes 236 240 ml PO Q10M colonoscopy #4,000 12/04/23 gram-22.74 gram-6.74 gram-5.86 mL gram solution (Golytely) acetaminophen 500 mg tablet 1,000 mg (2 x 500 mg) PO Q8H PRN 04/01/24 (Tylenol Extra Strength) pain #30 tabs ibuprofen 600 mg tablet 600 mg PO Q6H PRN pain #30 tabs 04/01/24 benzonatate 100 mg capsule 100 mg PO TID PRN Cough #9 caps 11/23/24 estradiol 0.01% (0.1 mg/gram) See Rx Instructions .Route DAILY 08/29/25 vaginal cream 90 days #42.5 grams gabapentin 400 mg tablet 400 mg PO TID PRN pain #14 tabs 09/05/25 Allergies Allergy/AdvReac Type Severity Reaction Status Date / Time prochlorperazine (From Allergy Anaphylaxis Verified 09/05/25 11:53 Compazine) nitrofurantoin AdvReac Unknown nausea and Verified 09/05/25 11:53 vomiting From COMPAZINE Allergy Unknown ANAPHYLAXIS Uncoded 08/29/25 11:28 Review of Systems Review of Systems: All other systems are reviewed and are negative Constitutional: Reports as per HPI and Reports no additional constitutional complaints Eyes: Reports as per HPI and Reports no additional eye complaints Reports system reviewed and no additional complaints, except as documented Cardiovascular: Reports as per HPI and Reports no additional cardiovascular complaints Respiratory: Reports as per HPI and Reports no additional respiratory complaints Gastrointestinal: Reports as per HPI and Reports no additional gastrointestinal complaints Genitourinary: Reports no additional female genitourinary complaints Musculoskeletal: Reports no additional musculoskeletal complaints Skin/Breast: Reports system reviewed and no additional complaints, except as docu Psychiatric: Reports no additional psychiatric complaints Endocrine: Reports no additional endocrine complaints Hematologic/Lymphatic: Reports no additional hematologic/lymphatic complaints Allergic/Immunologic: Reports no additional allergic/immunologic complaints Reports system reviewed and no additional complaints, except as documented and Reports Abnormal speech present [facility] Past Medical History Medical History Anxiety Insulin dependent type 2 diabetes mellitus Asthma Diabetes Porcelain gallbladder Asthma Morbid obesity Left flank pain Surgical History Hx of section History of tubal ligation H/O section Family History Family History Mother Ovarian cancer Maternal Grandfather Throat cancer Social History Social History Household Members: Children Housing: Apartment Do you presently have visiting nurse or other home services: No Alcohol intake: never Patient Tobacco Use Status: Never used Tobacco Smoked in Last 30 Days: No Advance Directives: No Advance Directives Information Provided: No Do you have a plan to hurt others: No Plan Patient : No service: No Current occupational status: employed 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 Blood pressure elevated. Heart rate normal. Respiratory rate normal. Temperature normal. Oxygen saturation normal. Appearance: Alert. Oriented X3. No acute distress. Head: Normal external exam. Normocephalic. Atraumatic. No [place] signs noted. No raccoon eyes noted Eyes: PERRLA. EOMI. Conjunctiva and sclera normal. Eyelids normal. ENT: TM's Normal. Pharynx normal. Uvula midline. Moist mucous membranes. No trismus noted. No drooling noted. No muffled voice noted. Neck: Normal inspection. Neck supple. FROM. No adenopathy. Thyroid Normal. No meningeal signs. No neck mass noted. CVS: Normal heart rate and rhythm. Heart sound normal. No murmurs noted. Pulses normal throughout. Respiratory: No respiratory distress. Painless inspiration. Breath sounds normal. No wheezes/rales/rhonchi noted. Chest nontender. No accessory muscle usage noted or decreased air movement noted. Abdomen: Soft and nontender. Bowel sounds normal in all 4 quadrants. No distention noted. No organomegaly noted. No visible injury noted. Back: No CVA tenderness. Full range of motion noted. Skin: Skin warm and dry. Normal skin color. Normal skin turgor. No rashes/lesions/lacerations noted. Extremities: No lower extremity edema. Extremities exhibit normal range of motion. Extremities nontender. Neuro: Oriented X 3. Cranial nerve exam: II-XII are grossly intact No motor deficit. No sensory deficit. Reflexes normal. Course Course Course Narrative: This is a rapid medical exam performed by Layla Peralta NP: Additional HPI, ROS, PE not included below will be deferred to primary provider. Patient is a 59y/o F presenting with c/o chest pain since yesterday, as well as pain to right dorsal foot for 5 days with associated swelling. Denies injury to foot. Plan: EKG, labs, x-ray Reevaluation(s) Reevaluation #1: 59-year-old female came in for evaluation of multiple symptoms. Patient's burning pain to the right foot is likely diabetic neuropathy with improvement with gabapentin in the ED. Negative D-dimer, negative ultrasound for DVT, VSS with normal O2 sat and RR making PE is unfavorable diagnosis and unlikely. ACS is extremely unlikely with-2 troponin and unremarkable EKG. Will start the patient gabapentin to control the pain, and follow-up with PCP. Time: 20:00 Medications Administered Discontinued Medications Generic Name Dose Route Start Last Admin Trade Name Freq PRN Reason Stop Dose Admin Gabapentin 600 mg 09/05/25 18:42 09/05/25 19:49 Gabapentin 600 Mg Tablet PO 09/05/25 18:43 600 mg ONCE ONE Administration Medical Decision Making Differential Diagnosis Differential Diagnoses: The differential diagnosis associated with the presentation includes (ACS, pulmonary embolism pneumonia, pneumothorax pleural effusion, electrolyte derangement, severe anemia, peripheral neuropathy, DVT.) Admission/Observation Consideration of admission/observation: Escalation of care including admission/observation considered Lab Data MDM Lab Attestation statement: I reviewed the patient's lab results. 09/05/25 12:09 09/05/25 12:09 Labs: Lab Results 09/05/25 09/05/25 Range/Units 12:09 19:26 WBC 6.2 (4.8-10.8) X10*3/uL RBC 4.11 L (4.20-5.50) X10*6/uL Hgb 11.6 L (12.0-16.0) g/dl Hct 35.5 L (37.0-47.0) % MCV 86.4 (80.0-98.0) fL MCH 28.2 (27.0-33.0) pg MCHC 32.7 (31.0-35.0) g/dl RDW 12.5 (11.0-16.0) % Plt Count 233 (160-400) X10*3/uL MPV 10.8 (9.4-12.3) fL Immature Gran % (Auto) 0.3 (0.0-0.4) % Neut % (Auto) 57.5 (45-73) % Lymph % (Auto) 33.5 (20-40) % [place] % (Auto) 5.2 (2-11) % Eos % (Auto) 2.9 (0-4) % Baso % (Auto) 0.6 (0-2) % Lymph # (Auto) 2.1 (1.2-4.9) X10*3/uL [place] # (Auto) 0.3 (0.1-1.2) X10*3/uL Eos # (Auto) 0.2 (0.0-0.4) X10*3/uL Baso # (Auto) 0.0 (0.0-0.2) X10*3/uL Abs Immat Gran (auto) 0.02 (0.00-0.03) X10*3/uL Absolute Neuts (auto) 3.6 (2.0-8.3) x10*3/uL Absolute Nucleated RBC 0.000 (0.0-0.012) X10*3/uL Nucleated RBC % (auto) 0.0 (0.0-0.2) /100WBC PT 12.3 (10.9-12.4) SEC INR 1.1 (0.9-1.1) Sodium 144 (135-145) mmol/L Potassium 3.9 (3.3-5.1) mmol/L Chloride 110 H (96-108) mmol/L Carbon Dioxide 27 (22-29) mmol/L Anion Gap 11 L (12-20) BUN 15 (9-16) mg/dL Creatinine 0.72 (0.5-1.4) mg/dL Estim Creat Clear Calc 98.1 Estimated GFR > 60 Random Glucose 197 H (60-115) mg/dL Calcium 8.9 (8.4-10.2) mg/dL Total Bilirubin 0.4 (0.0-1.0) mg/dL AST 23 (5-31) U/L ALT 23 (0-31) U/L Alkaline Phosphatase 82 (39-117) U/L Troponin I High Sens < 2.7 D < 2.7 (<3.5-17.0) ng/L NT-Pro-B Natriuret Pep 282.8 (<300) pg/mL Total Protein 7.0 (6.5-8.0) g/dL Albumin 4.1 (3.5-5.0) g/dL Beta HCG, Quant 3 mIU/mL Urine Color Yellow Urine Appearance Clear Urine pH 6.5 (5.0-9.0) Ur Specific [place] 1.020 (1.005-1.025) Urine Protein Negative (Neg-Trace) mg/dL Urine Glucose (UA) Negative (Negative) mg/dL Urine Ketones Negative (Negative) mg/dL Urine Blood Negative (Negative) Urine Nitrite Negative (Negative) Ur Leukocyte Esterase Trace H (Negative) Urine RBC 0-2 (0-2) /HPF Urine WBC 0-5 (0-5) /HPF Ur Squamous Epith Cells 0-2 (0-2) /HPF Urine Bacteria None Seen (None Seen) Hyaline Casts 0-2 (0-2) /LPF Independent Interpretation I performed an independent interpretation of an: Plain X-Ray (Chest: Right foot:Small calcaneal spurs otherwise unremarkable exam. ) Radiology Impression Discussion of test interpretation with radiology: I have reviewed the radiologist's reading. Discharge Plan Discharge Clinical Impression: Peripheral neuropathy, Chest pain Patient Disposition: Home, Self-Care Instructions: Chest Pain (ED), Peripheral Neuropathy (ED) Prescriptions: New gabapentin 400 mg tablet 400 mg PO TID PRN (Reason: pain) Qty: 14 0RF No Action furosemide 40 mg tablet 60 mg PO DAILY Qty: 45 3RF ibuprofen 600 mg tablet 600 mg PO Q6H PRN (Reason: pain) Qty: 30 0RF acetaminophen [Tylenol Extra Strength] 500 mg tablet 1,000 mg PO Q8H PRN (Reason: pain) Qty: 30 0RF metformin 500 mg tablet extended release 24 hr 500 mg PO loratadine 10 mg Tablet 10 mg PO DAILY benzonatate 100 mg Capsule 100 mg PO TID PRN (Reason: Cough) Qty: 9 0RF montelukast 10 mg tablet 10 mg PO DAILY cetirizine 10 mg tablet 10 mg PO DAILY albuterol sulfate [ProAir HFA] 90 mcg/actuation HFA aerosol inhaler 2 puff PO Q4-6H PRN (Reason: dyspnea) fluticasone propionate 50 mcg/actuation spray,suspension 1 spray intranasal DAILY fluticasone propion-salmeterol [Advair Diskus] 500-50 mcg/dose blister with device 1 ea inhalation lidocaine 5 % adhesive patch,medicated topical lisinopril 10 mg tablet 10 mg PO DAILY mometasone 0.1 % ointment topical QAM peg 3350-electrolytes [Golytely] 236-22.74-6.74 -5.86 gram recon soln 240 ml PO Q10M Qty: 4000 0RF Rx Instructions: as per split prep instructions, until fecal effluent is clear albuterol sulfate [Ventolin HFA] 90 mcg/actuation HFA aerosol inhaler 2 puff inhalation Q4-6H PRN (Reason: dyspnea) metformin 500 mg tablet extended release 24 hr 500 mg PO BID losartan 25 mg tablet 25 mg PO QAM fluticasone propion-salmeterol [Advair Diskus] 500-50 mcg/dose blister with device 1 ea inhalation BID meclizine 25 mg tablet 25 mg PO TID PRN (Reason: dizziness) montelukast 10 mg tablet 10 mg PO BEDTIME estradiol 0.01 % (0.1 mg/gram) cream See Rx Instructions .Route DAILY 90 Days Qty: 42.5 2RF Rx Instructions: Pea-sized amount to urethra daily x1 month and then 3 times per week thereafter Referrals: Charlotte Dickens MD [Primary Care Provider, Internal Medicine] Print Language: Amharic
[2025-09-05 12:16] LABS: MANUAL DIFF FLAG NO
[2025-09-05 12:19] LABS: Hematocrit 35.5 % (37.0-47.0); Hemoglobin 11.6 g/dl (12.0-16.0); Imm Gran Abs Auto 0.02 X10*3/uL (0.00-0.03); Imm Gran Pct Auto 0.3 % (0.0-0.4); Lymphocytes Absolute Auto 2.1 X10*3/uL (1.2-4.9); Mean Corpuscular HGB Conc 32.7 g/dl (31.0-35.0); Mean Corpuscular Hemoglobin 28.2 pg (27.0-33.0); Mean Corpuscular Volume 86.4 fL (80.0-98.0); NRBC Abs Auto 0.000 X10*3/uL (0.0-0.012); NRBC Pct Auto 0.0 /100WBC (0.0-0.2); Platelet Count 233 X10*3/uL (160-400); Red Blood Count 4.11 X10*6/uL (4.20-5.50); White Blood Count 6.2 X10*3/uL (4.8-10.8)
[2025-09-05 12:27] LABS: INTERNATIONAL NORM RATIO 1.1 (0.9-1.1); Prothrombin Time 12.3 SEC (10.9-12.4)
[2025-09-05 12:36] LABS: Alanine Aminotransferase 23 U/L (0-31); Albumin Level 4.1 g/dL (3.5-5.0); Alkaline Phosphatase 82 U/L (39-117); Anion Gap 11 (12-20); Aspartate Amino Transferase 23 U/L (5-31); Blood Urea Nitrogen 15 mg/dL (9-16); Calcium 8.9 mg/dL (8.4-10.2); Carbon Dioxide 27 mmol/L (22-29); Chloride 110 mmol/L (96-108); Creatinine Clr Calc Pharmacy 98.1; Estimated Glomerular Filt Rate > 60; Potassium 3.9 mmol/L (3.3-5.1); Sodium 144 mmol/L (135-145); Total Protein 7.0 g/dL (6.5-8.0)
[2025-09-05 12:43] LABS: NT Pro B Type Natriuretic Pept 282.8 pg/mL (<300)
[2025-09-05 12:44] LABS: Troponin-I High Sensitivity < 2.7 ng/L (<3.5-17.0)
[2025-09-05 18:16] VITALS: BP 167/83; PULSE 75; RESP 15; TEMP 36.8; O2SAT 99
--- NOTE | 2025-09-05 18:44 | PC.NURSE ---
Pt reportiong burning sensation on dorsal aspect of right foot. Foot is wNL. no redness, swelling, deformity. Awaits U/S. CP is intermittent per patient. NAD/.
--- OUTSIDE RECORDS SUMMARY | 2025-09-05 18:52 | XMS_ITS | Data Portability ---
Author Organization [place] - [facility], Allergy Address [address] [facility] [address] [place] [address] Care Team Providers Care Motorized Squad Commanding Officer Name Role Phone MARIAH CUELLAR Primary Care [...] Details Recorded Time Strain of neck muscle [id number] Active 025 GÉNESIS WHYTE MD [address] [facility] [address], [facility] [place], [address] , [place] - [facility] 05/31/2025 14:26:56 Problem Notes None recorded. Medical Equipment None Reported. Allergies Allergen ID Allergen Name Allergen Category Reaction Reaction Severity Criticality Documentation Date Start Date Code Code System Note Provider Name and Address Organization Details Recorded Time 342791 Compazine medicatio n Not available Not available Not available 05/31/202596470 6 RxNorm KEKE hilliard [place] - [facility] 5 14:01:14 Medications Name Sig Start Date [...] Available Not Available No t Available FreeStyle Browning Lite kit USE ONCE DAILY TO TEST [...] Updated DateTime 05/31/2025 162.56 cm 37.6 kg/m2 30756.73 g KEKE MEDRANO [place] [facility] 05/31/2025 13:58:59 Social History None recorded. Functional [...] ICD10 Code Diagnosis IMO Codes Diagnosis Note [id number] GÉNESIS WHYTE MD [facility] [address] [place] [address] 05/31/2025 13:41:41 05/31/2025 14:39:06 Strain of neck muscle 193282012 S16.1XXA [id number] Health Concerns Section Related Observation LastModified by Organization Detai ls LastModified Time None Recorded Concern Status LastModified by Organization Details LastModified Time None Recorded Advance Directives Directive None Recorded Payers Insurance Date Sequence Insurance Name Policy Number Policy Mak Covered Member ID Mak Member ID Guarantor Name 05/31/2025 1 [place] [facility] Jacqui Karan [id number] Jacqui Russo Notes Date Note Type Note Provider Name and Address Organization Details Recorded Time 05/31/2025 text/html ROS as noted in the HPI IPad [place] swellingescorted by daughterfeels swelling on left neck near mandibledoes not seem to relate to when eating 11/18/22 [facility], [place] w bx left base of tonguepath - benign, reactive process GÉNESIS WHYTE MD [address] [place] [address], [address], [place] - [facility] 05/31/2025 14:28:15 OBGyn Episode No OBEpisode recorded.
[2025-09-05 19:32] LABS: Appearance Urine Clear; Glucose Urine UA Negative (Negative); PH 6.5 (5.0-9.0); Specific Gravity - Urine 1.020 (1.005-1.025); UMIC TRIGGER UACC YES
[2025-09-05 19:56] LABS: Troponin-I High Sensitivity < 2.7 ng/L (<3.5-17.0)
[2025-09-05 20:06] VITALS: BP 150/66; PULSE 74; RESP 16; TEMP 36.6; O2SAT 99
[2025-09-05 21:29] VITALS: BP 139/72; PULSE 81; RESP 16; TEMP 36.6; O2SAT 96
[2025-09-05 21:37] VITALS: BP 139/72; PULSE 81; RESP 16; TEMP 36.6; O2SAT 96
== END 2025-09-05 21:38 | disposition home or self-care (01) ==
PROVIDERS: Registered Nurse Emergency; Emergency Provider Emergency Medicine; PCP Family Medicine
DX: R07.9 Chest pain, unspecified (principal); E11.42 Type 2 diabetes mellitus with diabetic polyneuropathy; J45.909 Unspecified asthma, uncomplicated; Z79.4 Long term (current) use of insulin; Z88.8 Allergy status to other drugs, medicaments and biological substances
CPT/HCPCS: 36415; 71045; 73630; 80053; 81001; 83880; 84484; 84702; 85025; 85610; 93005; 93971; 99284

== ENCOUNTER → 2025-09-05 11:29 | Outpatient (BNV) | payer MEDICAID, SELFPAY | PROVIDERS: Emergency Provider Emergency Medicine; PCP Family Medicine; Visit Provider Internal Medicine Cardiovascular Disease | DX: R94.31 Abnormal electrocardiogram [ECG] [EKG] (principal); R07.9 Chest pain, unspecified | CPT/HCPCS: 93010 ==

== ENCOUNTER → 2025-09-05 11:52 | Outpatient (BNV) | payer MEDICAID, SELFPAY | PROVIDERS: PCP Family Medicine; Visit Provider Radiology Diagnostic Radiology | DX: M79.661 Pain in right lower leg (principal); R07.9 Chest pain, unspecified; M77.31 Calcaneal spur, right foot | CPT/HCPCS: 71045; 73630; 93971 ==